=== PATIENT | female | born 1965 | race Caucasian/White ===

== ENCOUNTER 2024-06-18 16:50 | Outpatient (CLI) | payer MEDICARE, BC, SELFPAY ==
--- OUTSIDE RECORDS SUMMARY | 2024-06-18 16:53 | XMS_ITS | Clinical Summary ---
Author Organization [facility] Address [id number], [place] [address] Care Team Providers Care Senior Software Developer Name Role Phone Needs Pcp, Assignment Primary Care Provider [phone] Source Comments You are receiving this document as you are listed as the primary care provider,follow-up provider, or the patient has been referred to you for consultation.This is in compliance with the Medicare andMedicaid EHR Incentive Program,which states Providers who transition their patient to another setting of careor provider of care or refers their patient to another provider of care shouldprovide summary care record for each transition of care or referral. [facility] Allergies No known active allergies Medications Medication Sig Dispensed Refills Start Date End Date Status tretinoin (RETIN-A) 0.025 % creamIndications:Age- related facial wrinkles Apply pea sized amount to affected area of acne on face every evening. 20 g 11 02/20/2024 Active predniSONE (DELTASONE) 2.5 MG tablet Take 1 Tablet (2.5 mg) by mouth daily. Active levothyroxine (SYNTHROID) 100 MCG tablet Take 1 Tablet (100 mcg) by mouth daily. Active DULoxetine (CYMBALTA) 20 MG capsule Take 1 Capsule (20 mg) by mouth two times a day. 01/22/2024 Active clobetasol (TEMOVATE) 0.05 % cream Active buPROPion (WELLBUTRIN XL) 150 MG 24 hour release tablet Take 1 Tablet (150 mg) by mouth daily. Active Meloxicam (MOBIC) 15 MG tablet Take 1 Tablet (15 mg) by mouth daily. Active pregabalin (LYRICA) 100 MG capsule Take 1 Capsule (100 mg) by mouth daily. Active pregabalin (LYRICA) 300 MG capsule Take 1 Capsule (300 mg) by mouth daily. Active ALBUterol sulfate HFA 108 (90 Base) MCG/ACT inhaler Inhale. 01/17/2024 Active Active Problems No known active problems Social History Tobacco Use Types Packs/Day Years Used Date Smoking Tobacco: Never Assessed Sex and Gender Information Value Date Recorded Sex Assigned at Not on file Gender Identity Not on file Sexual Orientation Not on file Plan of Treatment Health Maintenance Due Date Last Done Comments Cervical Cancer Screening Due 1965 Colon Cancer Screening Plan Due 1965 Hep C Screening (Preventive Services) 1965 Medicare Annual Wellness Visit 1965 Mammogram 1965 HIV Screening (Preventive Services) 1981 HepB (1) 02/12/1984 Cholesterol 2010 Zoster/Shingles (2 of 2) 01/25/2022 11/30/2021 DTaP/Tdap/Td (2 - Tdap) 12/14/2022 12/14/2012 Influenza (#1) 2024 12/06/2023, 08/21, 09/29/2021, Additional history exists Pneumococcal Aged Out 07/29/2022, 08/21/2019 No lo nger eligible based on patient's age to complete this topic COVID-19 Vaccine Completed 10/31/2023, 09/2022, 03/25/2022, Additional history exists HepA Aged Out No longer eligi ble based on patient's age to complete this topic Hib Aged Out No longer eligi ble based on patient's age to complete this topic IPV (Polio) Aged Out No longer eligi ble based on patient's age to complete this topic MCV4 Aged Out No longer eligi ble based on patient's age to complete this topic Care Teams Senior Software Developer Relationship Specialty Start Date End Date Needs Pcp, [place] [address] PCP - General 02/20/24
--- OUTSIDE RECORDS SUMMARY | 2024-06-18 16:54 | XMS_ITS | Referral Summary ---
Author Organization [facility] Address [address] [place] [address] Care Team Providers Care Preschool Substitute Teacher Name Role Phone Karla Resendiz APRN, C.N.P., D.N.P. Primary Care Provider Source Comments Patient records contain information from all sites at [facility]. For routine questions regarding patient records, call [phone] during business hours, M-F 8:00 AM - 5:00 PM Central Time. Record requests for emergency care only can be directed to [phone] at any time.[facility] Encounters Date Type Department Care Team Description 06/13/2024 11:48 AM CDT - 06/13/2024 11:59 PM CDT Hospital Encounter Department of Laboratory Medicine in [address] [address] Karla Resendiz APRN, C.N.P., D.N.P. Fatigue Discharge Disposition: Home or Self Care 06/13/2024 11:48 AM CDT - 06/13/2024 11:59 PM CDT Hospital Encounter Department of Laboratory Medicine in [address] [phone] Karla Resendiz APRN, C.N.P., D.N.P. Hypothyroidism; Fatigue; Screening Examination Diabetes Mellitus; Rheumatoid Arthritis With Rheumatoid Factor Multiple Sites Without Organ Or Systems Involvement (HCC); Restless Leg Syndrome; Immunodeficiency Due To Drugs (HCC) Discharge Disposition: Home or Self Care 06/13/2024 11:00 AM CDT Office Visit Department of Family Medicine, [facility], [address] [phone] Karla Resendiz APRN, C.N.P., D.N.P. Fatigue (Primary Dx); Immunodeficiency Due To Drugs (HCC); Rheumatoid Arthritis With Rheumatoid Factor Multiple Sites Without Organ Or Systems Involvement (HCC); Restless Leg Syndrome; Hypothyroidism; Screening Examination Diabetes Mellitus; Polymyositis (HCC) Discharge Disposition: Home or Self Care 06/10/2024 3:00 PM CDT Comprehensive Visit Department of Orthopedic Surgery in [address] [phone] Rhiannon Farrar D.P.M. Rheumatoid Arthritis With Rheumatoid Factor Multiple Sites Without Organ Or Systems Involvement (HCC) (Primary Dx); Pain Foot Left Discharge Disposition: Home or Self Care 06/03/2024 9:15 AM CDT - 06/03/2024 11:59 PM CDT Hospital Encounter Department of Radiology in [address] [phone] Karla Resendiz APRN, C.N.P., D.N.P. Screening Mammogram Breast Cancer Discharge Disposition: Home or Self Care 05/15/2024 Orders Only Department of Family Medicine, [facility], [address] [phone] Karla Resendiz APRN, C.N.P., D.N.P. Pain Neck (Primary Dx) 05/15/2024 2:15 PM CDT Comprehensive Visit Department of Rehabilitation Services in [address] [phone] Karla Resendiz APRN, C.N.P., D.N.P. Nan Howard P.TLeisa Pain Neck (Primary Dx) 04/24/2024 Refill Department of Family Medicine, [facility], in [address] [phone] Karla Resendiz APRN, C.N.P., D.N.P. Med Refill 03/28/2024 Refill Department of [facility], [facility], in [address] [phone] Karla Resendiz APRN, C.N.P., D.N.P. Med Refill 03/19/2024 Refill Department of [facility], [facility], in [address] [phone] Karla Resendiz APRN, C.N.P., D.N.P. Med Refill from Last 3 Months Allergies Active Allergy Reactions Criticality Noted Date Comments Adhesive Rash Medium 06/29/2017 Adhesive Tape-Silicones Itching Medium 03/31/2023 Levofloxacin GI intolerance Medium 03/10/2022 Tramadol GI intolerance Medium 01/18/2018 Tramadol Hcl GI intolerance Medium 03/31/2023 Medications Medication Sig Dispensed Refills Start Date End Date Status OMEGA-3/DHA/EPA/D PA/FISH OIL (OMEGA-3 2100 ORAL) Take 1 capsule by mouth daily. 07/26/2017 Active magnesium 200 mg tablet Take 400 mg by mouth every morning before breakfast. Active ascorbic acid, vitamin C, (VITAMIN C) 1,000 mg tablet Take 1,000 mg by mouth daily. Active calcium carbonate (OS-EDIE) 1,250 mg (500 mg calcium) tablet Take 500 mg of calcium by mouth 3 (three) times a day with meals. Active docusate sodium (COLACE) 100 mg capsule Take 100 mg by mouth as needed. Active sennosides-docusa te sodium (SENOKOT-S) 8.6-50 mg per tablet Take 1-2 tablets by mouth as needed. 07/16/2020 Active vitamin A palmitate 10,000 unit tablet Take 1 tablet by mouth once a week. Active cranberry 450 mg tablet Take 450 mg by mouth as needed. Active Lactobacillus acidophilus capsule Take 1 capsule by mouth daily. Active LORazepam (ATIVAN) 0.5 mg tablet Take 0.5 mg by mouth as needed. 01/04/2021 Active zinc gluconate-zinc picolinate 30 mg capsule Take 30 mg by mouth 3 (three) times a week. Active diclofenac sodium (VOLTAREN) 1 % gel Apply topically as needed. Active estradioL (ESTRACE) 0.1 mg/g (0.01%) vaginal cream Insert 2 g into the vagina as needed. Active cetirizine (ZyrTEC) 10 mg tablet Take 1 tablet by mouth as needed. 01/08/2013 Active fluticasone propionate (FLONASE) 50 mcg/actuation nasal spray Administer 2 sprays into each nostril as needed for rhinitis. 9.9 mL 01/12/2023 Active acetaminophen (TYLENOL) 325 mg tablet Acetaminophen Oral take 2 tabs by oral route daily every 4-6 hours PRN active Active cholecalciferol (VITAMIN D3) 50 mcg (2,000 Unit) tablet 04/03/2019 Cholecalciferol Oral PO 2.0 TABLET(S) daily 04/03/2019 active 04/03/2019 Active mupirocin (BACTROBAN) 2 % ointment Apply 1 Application topically 3 (three) times a day. Apply to affected area as needed. 22 g 07/14/2023 Active multivitamin capsule Take 1 capsule by mouth daily. Active psyllium (METAMUCIL) powderIndications :Constipation,Les n Generalized Abdominal Take 1 packet by mouth daily. 283 g 12 08/28/2023 Active Additional Information Patient taking differently:1 packet oralAs needed, Reported on 03/06/2024 buPROPion XL (WELLBUTRIN XL) 150 mg 24 hr tablet Take 1 tablet (150 mg total) by mouth daily. 90 tablet 3 12/19/2023 Active benzonatate (TESSALON PERLES) 100 mg capsule Take 1 capsule (100 mg total) by mouth 3 (three) times a day as needed for cough. 15 capsule 01/20/2024 Active tretinoin (RETIN-A) 0.025 % cream Apply 1 Application topically as needed. 02/20/2024 Active predniSONE (DELTASONE) 5 mg tabletIndications :Rheumatoid Arthritis With Rheumatoid Factor Multiple Sites Without Organ Or Systems Involvement (HCC) Take 1 tablet (5 mg total) by mouth daily. 30 tablet 3 03/11/2024 Active DULoxetine (CYMBALTA) [address] capsule Take 2 capsules (40 mg total) by mouth 2 (two) times a day. 360 capsule 3 03/19/2024 Active pregabalin (Lyrica) 100 mg capsule Take 1 capsule (100 mg) by mouth 2 times per day 60 capsule 4 03/28/2024 Active levothyroxine (SYNTHROID, LEVOTHROID) 100 mcg tabletIndications :Hypothyroidism TAKE 1 TABLET (100 MCG) BY MOUTH EVERY MORNING BEFORE BREAKFAST 90 tablet 04/29/2024 Active predniSONE (Deltasone) 1 mg tabletIndications :Rheumatoid Arthritis With Rheumatoid Factor Multiple Sites Without Organ Or Systems Involvement (HCC) Take 1-4 tablets (1-4 mg total) by mouth daily. 120 tablet 2 06/14/2024 Active Active Problems Problem Noted Date Diagnosed Date Anxiety Disorder Unspecified 04/07/2023 Keloid 04/07/2023 04/07/2023 Hypertrophy Breast 04/07/2023 04/07/2023 Complication Anesthesia Subsequent 01/12/2023 Overview (01/12/2023): Nausea with anesthesia, use scopolamine patch. 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 02/26/2022 Vaginitis Atrophic 12/21/2020 04/07/2023 Depression Anxiety 08/19/2020 Rheumatoid Arthritis With Rh eumatoid Factor Multiple Sites Without Organ Or Systems Involvement 01/13/2020 Pseudotumor Cerebri 10/02/2017 Migraine Headache 09/22/2017 Dry Eye Syndrome Bilateral 11/10/2014 Hypothyroidism 02/15/2014 Overview (12/04/2017): Unspecified hypothyroidism Urinary Urge Incontinence 02/15/2014 Overview (12/04/2017): Urge incontinence Cataract Senile Posterior Subcapsular Bilateral 11/14/2012 Raynaud's Disease 07/02/2012 Restless Leg Syndrome 07/05/2010 Gastroesophageal Reflux Disease NOS 06/25/2010 Osteopenia 06/24/2010 Overview (01/31/2024): Bone density scan 12/06/2023, Osteopenia (E consult endocrinology place, calcium with vitamin-D advised with weight- bearing activity) Medication Therapy Oil Analyst Not Anticoagulant 0 03/04/2010 Cataract Senile Posterior Subcapsular Right 12/12/2007 Presbyopia 05/15/2008 Constipation 10/19/2007 Polymyositis 08/31/2006 Vertigo Pain Low Back Unspecified Pain Back Thoracic Radiculopathy Cervical Resolved Problems Problem Noted Date Diagnosed Date Resolved Date Depressive Disorder 04/07/2023 04/07/2023 09/27/20 23 Non-Pressure Chronic Ulcer O f Other Part Of Left Foot Limited To Breakdown Of Skin 01/12/2023 0 02/15/2023 COVID-19 Infection 12/08/2022 3 Cancer Breast Elevated Risk 02/13/2018 08/26/2019 Cancer Breast Family History 02/13/2018 08/26/2019 Cervical Disc Disorder 12/29/201511/17 Overgrowth Bacterial Small Bowel 05/25/2015 01/13/2020 Osteoporosis 05/30/2014 01/13/2020 Myopia Bilateral 11/14/2012 01/13/2020 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 ??Justine-1 positive antibody positive as well as rheumatoid factor and CCP antibody positive. ??She also has a history of mild interstitial lung disease. ??She has received prednisone, methotrexate, Arava and CellCept in the past. ??She has received anti-TNF therapy in the form of Humira and Remicade. Rituximab given in January and October,. Her most recent Rituximab therapy was in October, and had prolonged B-cell depletion. Arthritis Inflammatory 04/26/200701/13 Floater Vitreous 09/01/2006 01/13/2020 Lung Interstitial Disease 08/16/2006 Dyspnea NOS 08/16/2006 01/13/2020 Incomplete Bladder Emptying 03/20/2006 01/13/2020 Frequency Urinary 03/17/2006 01/13/2020 Pain Neck 11/17/2020 Immunizations Name Administration Dates Next Due H1N1 All Forms 11/03/2009 Influenza (IM) Preservative Free 017,08/10/2015,09/10/2013,2011,09/26/2011,09/29/2010,11/03/2009 Influenza Split 08/10/2015 Influenza TIV (IM) 11/10/2006 Influenza, Seasonal, Injectable 11/10/2006 Influenza, Unspecified 07/29/2019,2017,08/05/2016,2014,08/19/2014 PCV20 07/29/2022 PPSV23 08/21/2019 RZV (SHINGRIX) 11/30/2021,(Deferred: Not available from supply planner) SARS-COV-2 (COVID-19) - MODE RNA (12 YEARS AND OLDER) [id number] 10/31/2023 SARS-COV-2 (COVID-19) - PFIZ ER (Discontinued)(12 years or older) 07/22/2021,02/06/2021 SARS-COV-2 (COVID-19) - PFIZ ER BIVALENT TS(Discontinued)(12 YEARS OR OLDER) 09/30/2022 SARS-COV-2 (COVID-19) - PFIZ ER TS(Discontinued)(12 years or older) 03/25/2022 Tdap 01/31/2024(Deferred: Other - patient left),12/14/2012 Tuberculin Skin Test, Unspecified 07/31/2006 Zoster, Unspecified 10/22/2021(Deferred: Other),04/07/2021(Deferred: Other) influenza vaccine (FLUBLOK) (18 years or older) (PF) 09/10/2018 influenza vaccine quad (FLUZONE/FLUARIX) (6 months and older)(PF) 12/06/2023,09/17/2022,09/29/2021,2019,08/05/2016 Social History Tobacco Use Types Packs/Day Years Used Date Smoking Tobacco: Never Passive Smoke Exposure: Past Smokeless Tobacco: Never Tobacco Cessation:Counseling Given: Not Answered Alcohol Use Standard Drinks/Week Comments Yes 2 (1 standard drink = 0.6 oz pur e alcohol) [facility] Utilities Answer Date Recorded In the past 12 months has e [employer], oil, or water [employer] threatened to shut off services in your home? No 01/11/2024 Humiliation, Afraid, Rape, and Kick questionnair e Answer Date Recorded Within the last year, have y ou been afraid of your partner or ex-partner? No 01/11/2024 Within the last year, have y ou been humiliated or emotionally abused in other ways by your partner or ex-partner? No Within the last year, have y ou been kicked, hit, slapped, or otherwise physically hurt by your partner or ex-partner? No 01/11/2024 Within the last year, have y ou been raped or forced to have any kind of sexual activity by your partner or ex-partner? No 01/11/2024 Social Connection and Isolation Panel [NHANES] A nswer Date Recorded In a typical week, how many times do you talk on the phone with family, friends, or neighbors? Patient declined 07/29/2022 How often do you get togethe r with friends or relatives? Patient declined 07/29/2022 How often do you attend adventist or congregation serv ices? Patient declined 07/29/2022 Do you belong to any clubs o r organizations such as adventist groups, unions, fraternal or athletic groups, or school groups? Patient declined 07/29/2022 How often do you attend meet ings of the clubs or organizations you belong to? Patient declined 07/29/2022 Are you , , di vorced, , never , or living with a partner? Patient declined 07/29/2022 AUDIT-C Answer Date Recorded Q1: How often do you have a drink containing alc ohol? Patient declined 07/29/2022 Q2: How many drinks containi ng alcohol do you have on a typical day when you are drinking? Patient declined 07/29/2022 Q3: How often do you have si x or more drinks on one occasion? Patient declined 07/29/2022 Overall Financial Resource Strain (CARDIA) Answe r Date Recorded How hard is it for you to pa y for the very basics like food, housing, medical care, and heating? Not hard at all 07/29/2022 PHQ-2 Answer Date Recorded PHQ-2 Score 2 06/13/2024 [facility] - Occupational Stress Questionnaire Answer Date Recorded Do you feel stress - tense, restless, nervous, or anxious, or unable to sleep at night because your mind is troubled all the time - these days? Patient declined 07/29/2022 Exercise Vital Sign Answer Date Recorde d On average, how many days pe r week do you engage in moderate to strenuous exercise (like a brisk walk)? Patient declined On average, how many minutes do you engage in exercise at this level? Patient declined 07/29/2022 Hunger Vital Sign Answer Date Recorded Within the past 12 months, y ou worried that your food would run out before you got the money to buy more. Never true 01/11/20 Within the past 12 months, t he food you bought just didn't last and you didn't have money to get more. Never true 01/11/2024 PRAPARE - Transportation Answer Date Re corded In the past 12 months, has l ack of transportation kept you from medical appointments or from getting medications? No 12/22 In the past 12 months, has l ack of transportation kept you from meetings, work, or from getting things needed for daily living? No 01/11/2024 Depression Answer Date Recor ded PHQ-9 Total Score (max 27) 7 06/13 Nutrition Answer Date Recorded On average, how many serving s of fruits and vegetables do you eat per day (serving size is equal to 1 cup or approximately the size of a tennis ball)? 2-3 07/29/2022 Dental Answer Date Recorded Dental: Regular Dentist Yes 01/03/20 Employment Answer Date Recorded Employment status Permanently disabled Housing Stability Answer Date Recorded What is your living situation today? I have a quin place to live 01/11/2024 Education Answer Date Recorded What is the highest level of school you have completed or the highest degree you have received? 12th grade 08/20/2019 Sex and Gender Information Value Date Recorded Sex Assigned at Female 07/17/2018 3:01 PM CDT Gender Identity Female 07/17/2018 3:01 PM CDT Sexual Orientation Straight 07/17/2018 3: 01 PM CDT Last Filed Vital Signs Vital Sign Reading Time Taken Comments Blood Pressure 105/65 06/13/2024 10:35 AM CDT Pulse 74 06/13/2024 10:35 AM CDT Temperature 36.8 ??C (98.2 ??F) 06/13/2024 1 0:35 AM CDT Respiratory Rate 20 01/20/2024 2:46 PM [employer] Oxygen Saturation 98% 01/31/2024 10: 12 AM CDT Inhaled Oxygen Concentration - - Weight 64.7 kg (142 lb 10.2 oz) 024 10:35 AM CDT Height 172 cm (5' 7.72) 03/11/2024 10: 28 AM CDT Body Mass Index 21.87 03/11/2024 10:28 AM CDT Plan of Treatment Upcoming Encounters Date Type Department Care Team (Late st Contact Info) Description 09/06/2024 8:30 AM CDT Office Visit Department of Family Medicine, [facility], in [address] [phone] Karla Resendiz, RYAN, C.N.P., D.N.P. [address] [place] [address] Procedures Procedure Name Priority Date/Time Associated Diagnosis Comments FERRITIN, S Routine 06/13/2024 12:23 PM CDT Fatigue Immunodeficiency Due To Drugs (HCC) Rheumatoid Arthritis With Rheumatoid Factor Multiple Sites Without Organ Or Systems Involvement (HCC) VITAMIN B12 ASSAY, S Routine 06/13/2024 12:23 PM CDT Fatigue Rheumatoid Arthritis With Rheumatoid Factor Multiple Sites Without Organ Or Systems Involvement (HCC) Restless Leg Syndrome Hypothyroidism MAGNESIUM, S Routine 06/13/2024 12:23 PM CDT Fatigue Rheumatoid Arthritis With Rheumatoid Factor Multiple Sites Without Organ Or Systems Involvement (HCC) Restless Leg Syndrome Hypothyroidism HEMOGLOBIN A1C, B Routine 06/13/2024 12:23 PM CDT Screening Examination Diabetes Mellitus BASIC METABOLIC PANEL, S/P Routine 06/13/2024 12:23 PM CDT Fatigue CBC WITH DIFFERENTIAL, B Routine 06/13/2024 12:23 PM CDT Fatigue THYROID FUNCTION CASCADE, S Routine 06/13/2024 12:23 PM CDT Hypothyroidism ECG Routine 06/13/2024 12:17 PM CDT Fatigue SMALL JOINT INJECTION FOOT/ANKLE Routine 06/10/2024 3:00 PM CDT Pain Foot Left Rheumatoid Arthritis With Rheumatoid Factor Multiple Sites Without Organ Or Systems Involvement (HCC) BI BREAST SCREENING BILATERAL WITH TOMOSYNTHESIS RAD - Routine (most inpatients and all outpatients) 06/03/2024 9:29 AM CDT Screening Mammogram Breast Cancer LIPID PANEL, S Routine 10/31/2023 11:49 AM [employer]INTE[employer] Hyperlipidemia Rheumatoid Arthritis With Rheumatoid Factor Multiple Sites Without Organ Or Systems Involvement (HCC) HCV AB SCRN W/REFLEX TO HCV PCR, S Routine 06/29/2017 9:34 AM CDT from Last 3 Months or Most Recently Relevant to Health Maintenance Results * Thyroid Function [place] (06/13/2024 12:23 PM CDT) TSH, Sensitive 0.4 0.3 - 4.2 mIU/L 06/13/2024 7:40 PM CDT RDWG Blood (Blood, Venous) 06/13/2024 12:23 PM CDT 06/13/2024 6:53 PM CDT Livia Bravo APRNNLeisaP., D.N.P. LAB BLOOD ADD-ON [facility] [address] [place] [address], [facility] RDWG [facility] [place] [address] [place] [address] * (ABNORMAL) CBC with Differential, Blood (06/13/2024 12:23 PM CDT) Hemoglobin 13.7 11.6 - 15.0 g/dL 06/13/2024 7:08 PM CDT RDWG Hematocrit 43.4 35.5 - 44.9 % 06/13/2024 7:08 PM CDT RDWG Erythrocytes 4.73 3.92 - 5.13 x10(12)/L 06/13/2024 7:08 PM CDT RDWG MCV 91.8 78.2 - 97.9 fL 06/13/2024 7:08 PM CDT RDWG RBC Distrib Width 13.7 12.2 - 16.1 % 06/13/2024 7:08 PM CDT RDWG Platelet Count 319 157 - 371 x10(9)/L 06/13/2024 7:08 PM CDT RDWG Leukocytes 10.0(H) 3.4 - 9.6 x10(9)/L 06/13/2024 7:08 PM CDT RDWG Neutrophils 7.77(H) 1.56 - 6.45 x10(9)/L 06/13/2024 7:08 PM CDT RDWG Lymphocytes 1.61 0.95 - 3.07 x10(9)/L 06/13/2024 7:08 PM CDT RDWG Monocytes 0.54 0.26 - 0.81 x10(9)/L 06/13/2024 7:08 PM CDT RDWG Eosinophils 0.07 0.03 - 0.48 x10(9)/L 06/13/2024 7:08 PM CDT RDWG Basophils 0.05 0.01 - 0.08 x10(9)/L 06/13/2024 7:08 PM CDT RDWG Blood (Blood, Venous) 06/13/2024 12:23 PM CDT 06/13/2024 6:53 PM CDT Daren Bravo APRN.N.P., D.N.P. LAB BLOOD ADD-ON [facility] [address] [place] [address], [place] [address], [facility] RDW[facility] in [address] [address] * Magnesium (06/13/2024 12:23 PM CDT) Magnesium, P 2.3 1.7 - 2.3 mg/dL 06/13/2024 7:32 PM CDT RDWG Blood (Blood, Venous) 06/13/2024 12:23 PM CDT 06/13/2024 6:53 PM CDT Daren Bravo APRN.N.P., D.N.P. LAB BLOOD ADD-ON [facility] [address] [place] [id number] in [address] [address] * Hemoglobin A1c (06/13/2024 12:23 PM CDT) Hemoglobin A1c, B 5.5 4.2 - 5.6 % 06/13/2024 7:29 PM CDT RDWG Blood (Blood, Venous) 06/13/2024 12:23 PM CDT 06/13/2024 6:53 PM CDT Karla Resendiz APRN, Daren.N.P., D.N.P. LAB BLOOD ADD-ON Performing Organization Address City/[facility]/ZIP Co de Phone Number [facility] [address] [place] [phone], [facility] in [address] [address] * Ferritin (06/13/2024 12:23 PM CDT) Ferritin, S 19 11 - 328 mcg/L 06/13/2024 7:40 PM CDT RDW Comment: Biotin has been identified by the supply planner as a potential interfering substance. Higher concentrations of biotin may be found in multivitamins, hair/nail supplements, and workout supplements. If the result does not match clinical observations, repeat testing after patient refrains from the use of supplements for at least 12 hours. Blood (Blood, Venous) 06/13/2024 12:23 PM CDT 06/13/2024 6:53 PM CDT Livia Bravo APRNN.P., D.N.P. LAB BLOOD ADD-ON Performing Organization Address City/[facility] Co de Phone Number [facility] [address] [place] [phone], [facility] in [address] [address] * Vitamin B12 Assay (06/13/2024 12:23 PM CDT) Vitamin B12 Assay, S 265 232 - 1245 ng/L 06/13/2024 9:10 PM CDT ECLR Comment: Biotin has been identified by the supply planner as a potential interfering substance. Higher concentrations of biotin may be found in multivitamins, hair/nail supplements, and workout supplements. If the result does not match clinical observations, repeat testing after patient refrains from the use of supplements for at least 12 hours. Blood (Blood, Venous) 06/13/2024 12:23 PM CDT 06/13/2024 8:25 PM CDT Karla Resendiz APRN C.N.P., D.N.P. LAB BLOOD ADD-ON [facility] [address] [place] [id number], [place] ECLR [facility] [place] [address] [place] [phone] * (ABNORMAL) Basic Metabolic Panel (06/13/2024 12:23 PM CDT) Potassium, P 4.3 3.6 - 5.2 mmol/L 06/13/2024 7:32 PM CDT RDWG Sodium, P 139 135 - 145 mmol/L 06/13/2024 7:32 PM CDT RDWG Chloride, P 102 98 - 107 mmol/L 06/13/2024 7:32 PM CDT RDWG Bicarbonate, P 28 22 - 29 mmol/L 06/13/2024 7:32 PM CDT RDWG Anion Gap, P 9 7 - 15 06/13/2024 7:32 PM CDT RDWG BUN (Blood Urea Nitrogen), P 12 6 - 21 mg/dL 06/13/2024 7:32 PM CDT RDWG Creatinine 0.57(L) 0.59 - 1.04 mg/dL 06/13/2024 7:32 PM CDT RDWG Estimated GFR (eGFR) >90 >=60 mL/min/BSA 06/13/2024 7:32 PM CDT RDWG Comment: Estimated GFR calculated using the 2020 CKD_EPI creatinine equation. Calcium, Total, P 9.5 8.6 - 10.0 mg/dL 06/13/2024 7:32 PM CDT RDWG Glucose, P 80 70 - 140 mg/dL 06/13/2024 7:32 PM CDT RDWG Blood (Blood, Venous) 06/13/2024 12:23 PM CDT 06/13/2024 6:53 PM CDT Karla Resendiz APRN C.N.P., D.N.P. LAB BLOOD ADD-ON Performing Organization Address [facility] Co de Phone Number [facility] [address], [place] [address], [facility] RDWG [facility] [place] [address] [phone] * ECG 12 Lead (06/13/2024 12:17 PM CDT) Ventricular Rate ECG/Min 63 BPM MUSE HI Interval 166 ms MUSE QRSD Interval 84 ms MUSE QT Interval 404 ms MUSE QTC Interval 413 ms MUSE P [place] 73 degrees MUSE R [place] 78 degrees MUSE T Wave [place] 64 degrees MUSE 06/13/2024 12:1 7 PM CDT 06/13/2024 12:23 PM CDT Impressions MUSE - 06/13/2024 12:23 PM CDT Normal sinus rhythm Possible Left atrial enlargement Low anterior forces Nonspecific ST and T wave abnormality When compared with ECG of 25-Jun-2020 08:21, No significant change was found Reviewed by SIMA Garcia Narrative Procedure Note Alcides Diaz M.D., Ph.D. - 06/13/2024 IMPRESSION: Normal sinus rhythm Possible Left atrial enlargement Low anterior forces Nonspecific ST and T wave abnormality When compared with ECG of 25-Jun-2020 08:21, No significant change was found Reviewed by SIMA Garcia Karla Resendiz APRN, C.N.P., D.N.P. ECG ORDERABLES Performing Organization Address City/[facility] Co de Phone Number MUSE NA * Foot/Ankle (06/10/2024 3:00 PM CDT) Narrative Rhiannon Farrar D.P.M. - 06/10/2024 3:00 PM CDT Rhiannon Farrar D.PLeisaM. ? 06/10/2024 ??4:07 PM L 2-3 intermetatarsal neuroma injection, : injection only Foot/Ankle Performed by: Rhiannon Farrar D.P.MLeisa Authorized by: Rhiannon Farrar D.P.M. ?? PROCEDURE DETAILS ?? Procedure performed: injection only Foot-Ankle procedure site: L 2-3 intermetatarsal neuroma injection, PROCEDURE MEDICATIONS Local anesthetics: 1 mL lidocaine (PF) 10 mg/mL (1 %) Corticosteroid: 40 mg triamcinolone acetonide 40 mg/mL; 4 mg dexAMETHasone 4 mg/mL CONSENT Consent obtained: written (Risks, benefits and alternatives were discussed and a written Informed Consent was obtained. Please see Informed Consent form for further details.) UNIVERSAL PROTOCOL All relevant documentation and testing were reviewed and available. All required blood products, implants, devices and or special equipment were made available as applicable. Pre-procedure verification was conducted and the correct site was marked if required. A fire risk assessment was done as applicable. The procedural time-out to verify correct patient, correct side/site, and procedure was conducted prior to performing the procedure and confirmed in a procedural pause. PRE-PROCEDURE DETAILS Procedure purpose: therapeutic Appropriate hand hygiene, gown, cap, mask, protective eyewear, sterile gloves, skin preparation, sterile drape, and strict aseptic technique were utilized as applicable for the procedure. Site preparation: alcohol POST-PROCEDURE DETAILS Procedure outcome: ??successful procedure Complications: no apparent complications Post-procedure instructions: post-procedure activity instructions provided Discharge instruction provided: ice area as needed for comfort and follow-up with ordering provider Rhiannon GasparMLeisa PROCEDURE/CITLALI R SURGICAL ORDERABLES * BI Breast Screening Bilateral with Tomosynthesis (06/03/2024 9:29 AM CDT) Anatomical Region Laterality Modality Breast, Breast Imaging RST L OS, Breast Imaging ARZ LOS, Breast Imaging FLA [facility] Bilateral Mammography Impressions 06/03/2024 12:29 PM CDT Negative. RECOMMENDATION: ??Annual Screening Mammogram ASSESSMENT: ??BI-RADS: 1: Negative. Narrative 06/03/2024 12:29 PM CDT EXAM: ??BI BREAST SCREENING BILATERAL WITH TOMOSYNTHESIS Current study was evaluated with a Computer Aided Detection (CAD) system. INDICATION: ??Screening mammogram. COMPARISON: ??Prior exam(s) were available and reviewed for comparison. DENSITY: ??b. There are scattered areas of fibroglandular density. FINDINGS: ??No findings of malignancy. ??No significant change since prior exam. Procedure Note Ron Root M.D. - 06/03/2024 EXAM: BI BREAST SCREENING BILATERAL WITH TOMOSYNTHESIS Current study was evaluated with a Computer Aided Detection (CAD) system. INDICATION: Screening mammogram. COMPARISON: Prior exam(s) were available and reviewed for comparison. DENSITY: b. There are scattered areas of fibroglandular density. FINDINGS: No findings of malignancy. No significant change since priorexam. IMPRESSION: Negative. RECOMMENDATION: Annual Screening Mammogram ASSESSMENT: BI-RADS: 1: Negative. Karla Resendiz APRN, C.N.P., D.N.P. IMG BI PROCEDURES * (ABNORMAL) Lipid Panel (10/31/2023 11:49 AM [employer]) Triglycerides 79 mg/dL 10/31/2023 1:37 PM [employer] [facility] Comment: ----REFERENCE VALUE---- Normal: <150 mg/dL Borderline High: 150-199 mg/dL High: 200-499 mg/dL Very High: > or =500 mg/dL Cholesterol, Total 206(H) mg/dL 2022 1:37 PM [employer] [facility] Comment: ----REFERENCE VALUE---- Desirable: < 200 mg/dL Borderline High: 200 - 239 mg/dL High: > or = 240 mg/dL Cholesterol, LDL, Calculated 125 mg/dL 10/31/2023 1:37 PM [employer] [facility] Comment: ----REFERENCE VALUE---- Desirable: <100 mg/dL Above Desirable: 100-129 mg/dL Borderline High: 130-159 mg/dL High: 160-189 mg/dL Very High: >=190 mg/dL ----ADDITIONAL INFORMATION---- LDL cholesterol calculated using the Womack/NIH equation. Cholesterol, HDL 67 >=50 mg/dL 10/31/20 1:37 PM [employer] [facility] Cholesterol, Non-HDL, Calculated 139 mg/dL 10/31/2023 1:37 PM [employer] [facility] Comment: ----REFERENCE VALUE---- Desirable: <130 mg/dL Above Desirable: 130-159 mg/dL Borderline High: 160-189 mg/dL High: 190-219 mg/dL Very High: > or =220 mg/dL Fasting (8 HR or more) No 10/31/2023 1:08 PM [employer] [facility] Blood (Blood, Venous) 10/31/2023 11:49 AM [employer] 10/31/2023 1:08 PM [employer] Karla Resendiz APRN, C.N.P., D.N.P. LAB BLOOD ADD-ON Performing Organization Address City/[facility]/ZIP Co de Phone Number [facility] [address] [place] [address], [facility] RDWG [facility] [place] [address] [place] [phone] * HCV AB Scrn w/Reflex to HCV PCR, S (06/29/2017 9:34 AM CDT) HXHCV Ab [facility] Negative Negative POWERCHART Comment: Srjhdp-mv-[id number] ratio is <1.00. Test Performed by: [facility] - [address] [address] Blood 06/29/2017 9:34 AM CDT Karla Resendiz APRN, C.N.P., D.N.P. LAB MICROBIOLOGY - BLOOD ORDERABLES POWERCHART NA from Last 3 Months or Most Recently Relevant to Health Maintenance Care Teams Preschool Substitute Teacher Relationship Specialty Start Date End Date Karla Resendiz APRN, C.N.P., D.N.P. [address] [place] [id number] PCP - General 05/19/17
--- OUTSIDE RECORDS SUMMARY | 2024-06-18 16:54 | XMS_ITS ---
Author Organization [facility] Address [address] [place] [address] Care Team Providers Care Pumper Head Name Role Phone Unavailable Unavailable Unavailable Surgery Details Not on file Complications Check Surgery Details section. Procedure Estimated Blood Loss Check Surgery Details section. Procedure Findings Check Surgery Details section. Procedure Specimens Taken Check Surgery Details section.
--- OUTSIDE RECORDS SUMMARY | 2024-06-18 16:54 | XMS_ITS | Clinical Summary ---
Author Organization [facility] Address [address] [place] [address] Care Team Providers Care Contract Associate Manager Name Role Phone Karla Resendiz APRN, C.N.P., D.N.P. Primary Care Provider Source Comments Patient records contain information from all sites at [facility]. For routine questions regarding patient records, call [phone] during business hours, M-F 8:00 AM - 5:00 PM Central Time. Record requests for emergency care only can be directed to [phone] at any time.[facility] Allergies Active Allergy Reactions Criticality Noted Date [...] advised with weight- bearing activity) Medication Therapy Skilled Nursing Not Anticoagulant 0 03/04/2010 Cataract Senile Posterior Subcapsular Right 12/2007 Presbyopia 05/15/2008 Constipation 10/19/2007 Polymyositis 08/31/2006 Vertigo [...] 07/17/2012 01/13/2020 Overview (04/11/2017): Interstitial Lung Disease senior living usage methotrexate Dysphagia Oropharyngeal Phase 06/24/2010 01/13/2020 [...] Frequency Urinary 03/17/2006 01/13/2020 Pain Neck 11/17/2020 Encounters Date Type Department Care Team Description 06/13/2024 11:48 AM CDT - 06/13/2024 11:59 PM CDT Hospital Encounter Department of Laboratory Medicine in [address] [phone] Karla Resendiz APRN, C.N.P., D.N.P. Fatigue Discharge Disposition: Home or Self Care 06/13/2024 11:48 AM CDT - 06/13/2024 11:59 PM CDT Hospital Encounter Department of Laboratory Medicine in [address] [phone] Karla Resendiz APRN, C.N.P., D.N.P. 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 Fatigue (Primary Dx); Immunodeficiency Due To Drugs (HCC); Rheumatoid Arthritis With Rheumatoid Factor Multiple Sites Without Organ Or Systems Involvement (HCC); Restless Leg Syndrome; Hypothyroidism; Screening Examination Diabetes Mellitus; Polymyositis (HCC) Discharge Disposition: Home or Self Care 06/10/2024 3:00 PM CDT Comprehensive Visit Department of Orthopedic Surgery in [address] [phone] Rhiannon Farrar D.P.M. Rheumatoid Arthritis With Rheumatoid Factor Multiple Sites Without Organ Or Systems Involvement (HCC) (Primary Dx); Pain Foot Left Discharge Disposition: Home or Self Care 06/03/2024 9:15 AM CDT - 06/03/2024 11:59 PM CDT Hospital Encounter Department of Radiology in [address] [phone] Karla Resendiz APRN, C.N.P., D.N.P. Screening Mammogram Breast Cancer Discharge Disposition: Home or Self Care 05/15/2024 2:15 PM CDT Comprehensive Visit Department of Rehabilitation Services in [address] [phone] Karla Resendiz APRN, C.N.P., D.N.P. Nan Howard PLeisaTLeisa Pain Neck (Primary Dx) 05/15/2024 Orders Only Department of Family Medicine, [facility], [address] [phone] Karla Resendiz APRN, C.N.P., D.N.P. Pain Neck (Primary Dx) 04/24/2024 Refill Department of Family Medicine, [facility], in [address] [phone] Karla Resendiz APRN, C.N.P., D.N.P. Med Refill 03/28/2024 Refill Department of Family Medicine, [facility], in [address] [phone] Karla Resendiz APRN, C.N.P., D.N.P. Med Refill 03/19/2024 Refill Department of Family Medicine, [facility], in [place] [address] [place] [address] Karla Resendiz APRN, C.N.P., D.N.P. Med Refill from Last 3 Months Immunizations Name Administration Dates Next Due H1N1 All Forms 11/03/2009 Influenza (IM) Preservative Free 017,08/10/2015,09/10/2013,2011,09/26/2011,09/29/2010,11/03/2009 Influenza Split 08/10/2015 Influenza TIV (IM) 11/10/2006 Influenza, Seasonal, Injectable 11/10/2006 Influenza, Unspecified 07/29/2019,2017,08/05/2016,2014,08/19/2014 PCV20 07/29/2022 PPSV23 08/21/2019 RZV (SHINGRIX) 11/30/2021,(Deferred: Not available from folder hand) SARS-COV-2 (COVID-19) - MODE RNA (12 YEARS AND OLDER) [id number] 10/31/2023 SARS-COV-2 (COVID-19) - PFIZ ER (Discontinued)(12 [...] quad (FLUZONE/FLUARIX) (6 months and older)(PF) 12/06/2023,09/17/2022,09/29/2021,2019,08/05/2016 Family History Medical History Relation Name Comments Macular degeneration Aunt 1 Lupus Aunt 2 paternal Polymyositis Aunt 2 paternal Hyperlipidemia Brother 1 Thyroid disease Brother 1 Hyperlipidemia Brother 2 Hesham Thyroid disease Brother 2 Hesham Hypothyroidism Daughter 1 Learning disorder Daughter 2 vivian Thyroid disease Daughter 2 vivian Anxiety disorder Father candice Cataracts Father candice Dementia Father candice Depression Father candice Father candice Kidney disease Father candice Macular degeneration Father candice Sleep apnea Father candice Transient ischemic attack Father candice Pancreatic cancer Father's Brother 1 chava Coronary artery disease Father's Brother 2 hanane Kidney disease Father's Brother 2 hanane Other cancer Father's Brother 2 hanane brain can cer Other cancer Father's Brother 3 mariano stomach c ancer Dementia Father's Brother 4 Brian Coronary artery disease Father's Sister Reanna Prostate cancer Maternal Grandfather grandpa fahad Diabetes Maternal Grandmother stefan Anxiety disorder Mother kade Cataracts Mother kade Clotting disorder Mother kade Coronary artery disease Mother kade Depression Mother kade Hyperlipidemia Mother kade Hypertension Mother kade Lung cancer Mother kade Peripheral vascular disease Mother kade Thyroid disease Mother kade Kidney cancer Mother's Brother 1 rock Prostate cancer Mother's Brother 1 rock Clotting disorder Mother's Brother 2 nithin Prostate cancer Mother's Brother 2 nithin Prostate cancer Mother's Brother 3 chava Dementia Mother's Brother 4 fahad jr Prostate cancer Mother's Brother 4 fahad jr Lung cancer Mother's Brother 5 shaq Coronary artery disease Paternal Grandfather kulwinder sr Anxiety disorder Sister 1 Telma Breast cancer Sister 1 Telma Cataracts Sister 1 Telma Clotting disorder Sister 1 Telma Coronary artery disease Sister 1 Telma Depression Sister 1 Telma Gestational diabetes Sister 1 Telma Graves' disease Sister 1 Telma Hyperlipidemia Sister 1 Telma Hypothyroidism Sister 1 Telma Obesity Sister 1 Telma Polymyositis Sister 1 Telma Thyroid disease Sister 1 Telma Anxiety disorder Sister 2 Nov Depression Sister 2 Good Hypothyroidism Sister 2 Good Thyroid disease Sister 2 Nov Anxiety disorder Sister 3 Ana Breast cancer Sister 3 Ana Clotting disorder Sister 3 Ana Depression Sister 3 Ana Gestational diabetes Sister 3 Ana Hyperlipidemia Sister 3 Ana Obesity Sister 3 Ana Polymyositis Sister 3 Ana Sleep apnea Sister 3 Ana Thyroid disease Sister 3 Ana Macular degeneration Uncle Relation Name Status Comments Aunt 1 Aunt 2 paternal Brother 1 Brother 2 Hesham Daughter 1 Daughter 2 vivian Father candice Father's Brother 1 chava Father's Brother 2 hanane Father's Brother 3 mariano Father's Brother 4 Brian Father's Sister Reanna Maternal Grandfather grandpa fahad Maternal Grandmother stefan Mother kade Mother's Brother 1 rock Mother's Brother 2 nithin Mother's Brother 3 chava Mother's Brother 4 fahad jr Mother's Brother 5 shaq Paternal Grandfather kulwinder deng Sister 1 Telma Breast CA age 4 9 Sister 2 Good Sister 3 Ana Breast CA age 5 6 Uncle Social History Tobacco Use Types Packs/Day Years Used Date Smoking Tobacco: Never Passive Smoke Exposure: Past Smokeless Tobacco: Never Tobacco Cessation:Counseling Given: Not Answered Alcohol Use Standard Drinks/Week Comments Yes 2 (1 standard drink = 0.6 oz pur e alcohol) [facility] Utilities Answer Date Recorded In the past 12 months has e Xention, gas, oil, or water opvizor threatened to shut off services in your [...] declined 07/29/2022 How often do you attend episcopal or baptism serv ices? Patient declined 07/29/2022 Do you belong to any clubs o r organizations such as episcopal groups, unions, fraternal or athletic groups, or [...] Answer Date Recorded PHQ-2 Score 2 06/13/2024 [facility] - Occupational Stress Questionnaire Answer Date Recorded [...] money to buy more. Never true 01/11/20 24 Within the past 12 months, t he [...] your living situation today? I have a [facility] place to live 01/11/2024 Education Answer Date [...] CDT Respiratory Rate 20 01/20/2024 2:46 PM TRANSPORTATION DEPARTMENT SUPERVISOR Oxygen Saturation 98% 01/31/2024 10: 12 AM [...] CDT Office Visit Department of Family Medicine, [facility], in [place] [address] [place] [address] Karla Resendiz, RYAN, C.N.P., D.N.P. [address] [place] [address] Health Maintenance Due Date Last Done Comments CT Colonography 1965 Cologuard 1965 FIT 1965 HIV Screening 1965 Hepatitis B Vaccines (1 of 3 - 19+ 3-dose series) 02/12/1984 Zoster Vaccines (2 of 2) 01/25/2022 11/30/2021 DTaP,Tdap,and Td Vaccines (2 - Td or Tdap) 12/14/2022 12/14/2012 Influenza Vaccine (#1) 2024 , 09/17/2022, 09/29/2021, Additional history exists Cervical Cancer Screening 12/12/2024 12/12/2023 Visit: Medicare Annual Wellness 01/12/2025 01/11/2024 Mammogram 06/03/2025 06/03/2024, 07/0 05/2023, 08/23/2021, Additional history exists Thyroid Stimulating Hormone (TSH) test for thyroid function 06/13/2025 06/13/2024, 08/31/2023, 07/11/2022, Additional history exists Colonoscopy 02/09/2027 02/09/2017, 12/22, 07/03/2006 Colorectal Cancer Screening 02/09/2027 Fasting Glucose for Diabetes Screening 06/13/2027 06/13/2024, 06/13/2024, 10/31/2023, Additional history exists Lipid (Cholesterol) Screening 10/31/2028 10/31/2023, 08/31/2023, 01/07/2021, Additional history exists Hepatitis C Screening Completed 06/29/2017 Pneumococcal vaccine (0-64 years) Completed 07/29/2022, 08/21/2019 COVID-19 Vaccine Completed 10/31/2023, 09/2022, 03/25/2022, Additional history exists Depression Screening (Annual PHQ-2) Completed 06/13/2024, 06/13/2024 HPV Vaccines Aged Out No longer eligi ble based on patient's age to complete this topic Procedures Procedure Name Priority Date/Time Associated Diagnosis [...] LIPID PANEL, S Routine 10/31/2023 11:49 AM TRANSPORTATION DEPARTMENT SUPERVISOR Hyperlipidemia Rheumatoid Arthritis With Rheumatoid Factor Multiple Sites Without Organ Or Systems Involvement (HCC) HCV AB SCRN W/REFLEX TO HCV PCR, S Routine 06/29/2017 9:34 AM CDT from Last 3 Months or Most Recently Relevant to Health Maintenance Results * Thyroid Function [place] (06/13/2024 12:23 PM CDT) Pathologist [facility] TSH, Sensitive 0.4 0.3 - 4.2 mIU/L 06/13/2024 7:40 PM CDT [facility] Blood (Blood, Venous) 06/13/2024 12:23 PM CDT 06/13/2024 6:53 PM CDT Karla Resendiz APRN, C.N.P., D.N.P. LAB BLOOD ADD-ON [facility] [address] [place] [address], [facility] R[facility] in [place] [address] [place] [address] * (ABNORMAL) CBC with Differential, Blood (06/13/2024 12:23 PM CDT) Pathologist [facility] Hemoglobin 13.7 11.6 - 15.0 g/dL 06/13/2024 [...] Resendiz APRN, Daren.N.P., D.N.P. LAB BLOOD ADD-ON [facility] [address] [place] [address], [place] [address], [facility] [address] [place] [address] * Magnesium (06/13/2024 12:23 PM CDT) [facility] Magnesium, P 2.3 1.7 - 2.3 mg/dL 06/13/2024 7:32 PM CDT [facility] Blood (Blood, Venous) 06/13/2024 12:23 PM CDT 06/13/2024 6:53 PM CDT Karla Resendiz APRN, Daren.N.P., D.N.P. LAB BLOOD ADD-ON [facility] [address] [place] [address], [facility] [place] [address] [place] [address], [place] [address] * Hemoglobin A1c (06/13/2024 12:23 PM CDT) Hemoglobin A1c, B 5.5 4.2 - 5.6 % 06/13/2024 7:29 PM CDT [facility] Blood (Blood, Venous) 06/13/2024 12:23 PM CDT 06/13/2024 6:53 PM CDT Daren Bravo APRN.N.P., D.N.P. LAB BLOOD ADD-ON Performing Organization Address City/[facility]/ZIP Co de Phone Number [facility] [address] [place] [address], [facility] in [address] [address] * Ferritin (06/13/2024 12:23 PM CDT) Ferritin, S 19 11 - 328 mcg/L 06/13/2024 7:40 PM CDT [facility] Comment: Biotin has been identified by the folder hand as a potential interfering substance. Higher concentrations of biotin may be found in multivitamins, hair/nail supplements, and workout supplements. If the result does not match clinical observations, repeat testing after patient refrains from the use of supplements for at least 12 hours. Blood (Blood, Venous) 06/13/2024 12:23 PM CDT 06/13/2024 6:53 PM CDT Daren Bravo APRN.N.P., D.N.P. LAB BLOOD ADD-ON Performing Organization Address City/[facility]/ZIP Co de Phone Number [facility] [address] [place] [address], [facility] in [address] [address] * Vitamin B12 Assay (06/13/2024 12:23 PM CDT) Vitamin B12 Assay, S 265 232 - 1245 ng/L 06/13/2024 9:10 PM CDT ECL[facility] Comment: Biotin has been identified by the folder hand as a potential interfering substance. Higher concentrations of biotin may be found in multivitamins, hair/nail supplements, and workout supplements. If the result does not match clinical observations, repeat testing after patient refrains from the use of supplements for at least 12 hours. Blood (Blood, Venous) 06/13/2024 12:23 PM CDT 06/13/2024 8:25 PM CDT Karla Resendiz APRN, C.N.P., D.N.P. LAB BLOOD ADD-ON [facility] [address] [place] [address], [facility] ECLR [facility] in [address] [address] * (ABNORMAL) Basic Metabolic Panel (06/13/2024 12:23 [...] 06/13/2024 6:53 PM CDT Karla Resendiz APRN, C.N.P., D.N.P. LAB BLOOD ADD-ON Performing Organization Address [facility] Co de Phone Number [facility] [address] [place] [address], [facility] in [place] [address] [place] [address] * ECG 12 Lead (06/13/2024 12:17 PM CDT) Ventricular Rate ECG/Min 63 BPM MUSE [place] Interval 166 ms MUSE QRSD Interval 84 ms MUSE QT Interval 404 ms MUSE QTC Interval 413 ms MUSE P [place] 73 degrees MUSE R [place] 78 degrees MUSE T Wave [place] 64 degrees MUSE 06/13/2024 12:1 7 PM [...] C.N.P., D.N.P. ECG ORDERABLES Performing Organization Address City/[facility] Co de Phone Number MUSE NA * Foot/Ankle (06/10/2024 3:00 PM CDT) Narrative VandRhiannon Pedro D.P.M. - 06/10/2024 3:00 PM CDT Rhiannon Farrar D.P.M. ? 06/10/2024 ??4:07 PM L 2-3 intermetatarsal neuroma injection, : injection only Foot/Ankle Performed by: Rhiannon Farrar D.P.M. Authorized by: Rhiannon Farrar D.P.M. ?? PROCEDURE [...] comfort and follow-up with ordering provider Rhiannon Farrar D.P.M. PROCEDURE/CITLALI R SURGICAL ORDERABLES * BI Breast Screening Bilateral with Tomosynthesis (06/03/2024 9:29 AM CDT) Anatomical Region Laterality Modality Breast, Breast Imaging RST L OS, Breast Imaging ARZ LOS, Breast Imaging FLA LOS Bilateral Mammography Impressions 06/03/2024 12:29 PM CDT [...] * (ABNORMAL) Lipid Panel (10/31/2023 11:49 AM TRANSPORTATION DEPARTMENT SUPERVISOR) Triglycerides 79 mg/dL 10/31/2023 1:37 PM TRANSPORTATION DEPARTMENT SUPERVISOR [facility] Comment: ----REFERENCE VALUE---- Normal: <150 mg/dL Borderline High: 150-199 mg/dL High: 200-499 mg/dL Very High: > or =500 mg/dL Cholesterol, Total 206(H) mg/dL 2022 1:37 PM TRANSPORTATION DEPARTMENT SUPERVISOR [facility] Comment: ----REFERENCE VALUE---- Desirable: < 200 mg/dL Borderline High: 200 - 239 mg/dL High: > or = 240 mg/dL Cholesterol, LDL, Calculated 125 mg/dL 10/31/2023 1:37 PM TRANSPORTATION DEPARTMENT SUPERVISOR [facility] Comment: ----REFERENCE VALUE---- Desirable: <100 mg/dL Above Desirable: 100-129 mg/dL Borderline High: 130-159 mg/dL High: 160-189 mg/dL Very High: >=190 mg/dL ----ADDITIONAL INFORMATION---- LDL cholesterol calculated using the Womack/NIH equation. Cholesterol, HDL 67 >=50 mg/dL 10/31/20 1:37 PM TRANSPORTATION DEPARTMENT SUPERVISOR [facility] Cholesterol, Non-HDL, Calculated 139 mg/dL 10/31/2023 1:37 PM TRANSPORTATION DEPARTMENT SUPERVISOR [facility] Comment: ----REFERENCE VALUE---- Desirable: <130 mg/dL Above Desirable: 130-159 mg/dL Borderline High: 160-189 mg/dL High: 190-219 mg/dL Very High: > or =220 mg/dL Fasting (8 HR or more) No 10/31/2023 1:08 PM TRANSPORTATION DEPARTMENT SUPERVISOR [facility] Blood (Blood, Venous) 10/31/2023 11:49 AM TRANSPORTATION DEPARTMENT SUPERVISOR 10/31/2023 1:08 PM TRANSPORTATION DEPARTMENT SUPERVISOR Daren Bravo APRN.N.P., D.N.P. LAB BLOOD ADD-ON Performing Organization Address City/[facility]/ZIP Co de Phone Number [facility] [address] [place] [address], [facility] in [address] [address] * HCV AB Scrn w/Reflex to HCV PCR, S (06/29/2017 9:34 AM CDT) HXHCV Ab [facility] Negative Negative POWERCHART Comment: Dhoekt-ij-sauonp ratio is <1.00. Test Performed by: [facility] - [address] [address] Blood 06/29/2017 9:34 AM CDT Karla Resendiz APRN, Daren.N.P., D.N.P. LAB MICROBIOLOGY - BLOOD ORDERABLES POWERCHART NA from Last 3 Months or Most Recently Relevant to Health Maintenance Care Teams Contract Associate Manager Relationship Specialty Start Date End Date Karla Resendiz, RYAN, C.N.P., D.N.P. [address] [place] [address] PCP - General 05/19/17
--- OUTSIDE RECORDS SUMMARY | 2024-06-18 16:55 | XMS_ITS | Encounter Summary ---
Author Organization [facility] Address [address] [place] [address] Care Team Providers Care Sustainment Logistics Analyst Name Role Phone Karla Resendiz APRN, C.N.P., D.N.P. Primary Care Provider Reason for Referral * Outpatient (Routine) - Authorized Specialty Diagnoses / Procedures Referred By Ariana bedolla Referred To Contact Diagnoses Pain Foot Left Rheumatoid Arthritis With Rheumatoid Factor Multiple Sites Without Organ Or Systems Involvement (HCC) Procedures Foot/Ankle Rhiannon Farrar D.PJulianne [address] [place] [address] [facility] Region Referral ID Status Reason Start Date Expiration Date V isits Requested Visits Authorized [id number] Authorized 06/10/2024 06/10/2025 1 1 Reason for Visit * Reason Comments Pain * Outpatient (Routine) - Closed Specialty Diagnoses / Procedures Referred By Contjanneth bedolla Referred To Contact Orthopedic Surgery Diagnoses Pain Foot Left Karla Resendiz APRN, C.N.P., D.N.P. [address] [place] [address] [facility] Region Referral ID Status Reason Start Date Expiration Date Visits Re quested Visits Authorized [id number] Closed 03/14/2024 09/13/2025 1 1 Encounter Details Date Type Department Care Team (Latest Contact Info) Description 06/10/2024 3:00 PM CDT Comprehensive Visit Department of Orthopedic Surgery in [address] [place] [address] Rhiannon Farrar D.PLeisaM. [address] [place] [address] Rheumatoid Arthritis With Rheumatoid Factor Multiple Sites Without Organ Or Systems Involvement (HCC) (Primary Dx); Pain Foot Left Discharge Disposition: Home or Self Care Social History Tobacco Use Types Packs/Day Years Used Date Smoking Tobacco: Never Passive Smoke Exposure: Past Smokeless Tobacco: Never Alcohol Use Standard Drinks/Week Comments Yes 2 (1 standard drink = 0.6 oz pur e alcohol) [facility] Utilities Answer Date Recorded In the past 12 months has e [employer], gas, oil, or water [employer] threatened to shut off services in your [...] declined 07/29/2022 How often do you attend islam or jew serv ices? Patient declined 07/29/2022 Do you belong to any clubs o r organizations such as islam groups, unions, fraternal or athletic groups, or [...] 07/29/2022 PHQ-2 Answer Date Recorded PHQ-2 Score 1 01/11/2024 [facility] - Occupational Stress Questionnaire Answer Date [...] Recor ded PHQ-9 Total Score (max 27) 6 10/31 Nutrition Answer Date Recorded On average, how [...] your living situation today? I have a [facility] place to live 01/11/2024 Education Answer Date Recorded What is the highest level of school you have completed or the highest degree you have received? 12th grade 08/20/2019 Sex and Gender Information Value Date Recorded Sex Assigned at Female 07/17/2018 3:01 PM CDT Gender Identity Female 07/17/2018 3:01 PM CDT Sexual Orientation Straight 07/17/2018 3: 01 PM CDT documented as of this encounter Progress Notes * Rhiannon Farrar D.P.M. - 06/10/2024 3:00 PM CDT SUBJECTIVE CHIEF COMPLAINT / REASON FOR VISIT Chief Complaint Patient presents with Left Foot - Pain HISTORY OF PRESENT ILLNESS Josefina Esparza is a 59 y.o. female who presents for evaluation of left 2nd and 3rd MTPJ inflammation, edema, with history of rheumatoid arthritis and increase in her prednisone recently to 5 mg daily. She would like to go back down her dosage since she is feeling better but is also still havingconcerns for the inflammation and residual pain in her left foot. Recommendation was made by Rheumatology to also consider the use of methotrexate going forward however patient has not started that yet. The following portions were reviewed and updated as appropriate: Allergies, medications, medical history, surgical history, family history, social history. and problem list per the electronic health record tab dated 06/10/2024. REVIEW OF SYSTEMS: Hepatic - negative, Constitutional - negative, Integumentary - negative, GI - negative, Musculoskeletal - see HPI OBJECTIVE PHYSICAL EXAMINATION DP PT pulse palpable to the left foot. Left 2nd and 3rd digits demonstrate hammertoe deformities with MTPJ contracture, and quite inflamed 2nd and 3rd MTPJ with pain to palpation. ASSESSMENT / PLAN #1 Pain Foot Left #2 Rheumatoid Arthritis With Rheumatoid Factor Multiple Sites Without Organ Or Systems Involvement (HCC) PLAN I recommended left 2nd intermetatarsal space cortisone injection. The rationale for the procedure was discussed. Risks, benefits, and alternative treatments were discussed as well. The patient was given the opportunity to ask appropriate questions, and does understand the risks, benefits, and alternatives. The patient preference agrees with my recommendation and therefore we will proceed as planned. Informed consent was signed. See procedure note this date. documented in this encounter Procedure Notes * Rhiannon Farrar D.P.M. - 06/10/2024 3:00 PM CDTAssociated Order(s): Foot/Ankle Post-Procedure Diagnose(s): Pain Foot Left; Rheumatoid Arthritis With Rheumatoid Factor Multiple Sites Without Organ Or Systems Involvement (HCC) L 2-3 intermetatarsal neuroma injection, : injection only Foot/Ankle Performed by: Rhiannon Farrar D.P.M. Authorized by: Rhiannon Farrar D.P.M. PROCEDURE DETAILS Procedure performed: injection only Foot-Ankle procedure site: [...] Site preparation: alcohol POST-PROCEDURE DETAILS Procedure outcome: successful procedure Complications: no apparent complications Post-procedure instructions: post-procedure activity instructions provided Discharge instruction provided: ice area as needed for comfort and follow-up with ordering provider documented in this encounter Plan of Treatment Upcoming Encounters Date Type Department Care Team (Late st Contact Info) Description 09/06/2024 8:30 AM CDT Office Visit Department of Family Medicine, [facility], in [address] [address] Karla Resendiz APRN, C.N.P., D.N.P. [facility] [address] documented as of this encounter Procedures Procedure Name Priority Date/Time Associated Diagnosis Comments SMALL JOINT INJECTION FOOT/ANKLE Routine 06/10/2024 3:00 PM CDT Pain Foot Left Rheumatoid Arthritis With Rheumatoid Factor Multiple Sites Without Organ Or Systems Involvement (HCC) documented in this encounter Results * Foot/Ankle (06/10/2024 3:00 PM CDT) Narrative Rhiannon Farrar D.PTrini. - 06/10/2024 3:00 PM CDT Rhiannon Farrar D.PJulianne ? 06/10/2024 ??4:07 PM L 2-3 intermetatarsal neuroma injection, : injection only Foot/Ankle Performed by: Rhiannon Farrar D.PJulianne Authorized by: Rhiannon Farrar D.P.M. ?? PROCEDURE [...] Rhiannon Farrar D.P.M. PROCEDURE/CITLALI R SURGICAL ORDERABLES documented in this encounter Visit Diagnoses Diagnosis Rheumatoid Arthritis With Rheumatoid Factor Multiple Sites Without Organ Or Systems Involvement (HCC)- Primary Pain Foot Left documented in this encounter Administered Medications Inactive Administered Medications - up to 3 most recent administrations Medication Order MAR Action Action Date Dose Rate Site dexAMETHasone injection 4 mg (Decadron) 4 mg, intra-articular, One-Time Injection, Starting on Mon06/10/24 at 1500, For 1 dose Given 06/10/2024 3:00 PM CDT 4 mg lidocaine (PF) 10 mg/mL (1 %) injection 1 mL (Xylocaine) 1 mL, injection, One-Time Injection, Starting on Mon06/10/24 at 1500, For 1 dose Given 06/10/2024 3:00 PM CDT 1 mL triamcinolone acetonide injection 40 mg (Kenalog-40) 40 mg, intra-articular, One-Time Injection, Starting on Mon06/10/24 at 1500, For 1 dose Given 06/10/2024 3:00 PM CDT 40 mg documented in this encounter Additional Health Concerns Assessment Noted Time PHQ-9 Depression Total Score: 6 10/31/20 23 10:21 AM HUMAN FACTORS ENGINEER documented as of this encounter Care Teams Sustainment Logistics Analyst Relationship Specialty Start Date End Date Karla Resendiz APRN, C.N.P., D.N.P. [address] [place] [phone] PCP - General 05/19/17 documented as of this encounter
--- OUTSIDE RECORDS SUMMARY | 2024-06-18 16:55 | XMS_ITS | Encounter Summary ---
Author Organization [facility] Address [address] [place] [address] Care Team Providers Care Conciliator Name Role Phone Karla Resendiz APRN, C.N.P., D.N.P. Primary Care Provider Encounter Details Date Type Department Care Team (Latest Contact Info) Description 06/13/2024 11:48 AM CDT - 06/13/2024 11:59 PM CDT Hospital Encounter Department of Laboratory Medicine in [address] [address] Karla Resendiz APRN, C.N.P., D.N.P. [address] [place] [phone] Hypothyroidism; Fatigue; Screening Examination Diabetes Mellitus; Rheumatoid Arthritis With Rheumatoid Factor Multiple Sites Without Organ Or Systems Involvement (HCC); Restless Leg Syndrome; Immunodeficiency Due To Drugs (HCC) Discharge Disposition: Home or Self Care Social History Tobacco Use Types Packs/Day Years Used Date Smoking Tobacco: Never Passive Smoke Exposure: Past Smokeless Tobacco: Never Alcohol Use Standard Drinks/Week Comments Yes 2 (1 standard drink = 0.6 oz pur e alcohol) [facility] Utilities Answer Date Recorded In the past 12 months has th e electric, gas, oil, or water [employer] threatened to shut off services in your [...] declined 07/29/2022 How often do you attend hinduism or zoroastrian serv ices? Patient declined 07/29/2022 Do you belong to any clubs o r organizations such as hinduism groups, unions, fraternal or athletic groups, or [...] Answer Date Recorded PHQ-2 Score 2 06/13/2024 [facility] - Occupational Stress [...] your living situation today? I have a [facility] place to live 01/11/2024 Education Answer [...] PM CDT documented as of this encounter Medications at Time of Discharge Medication Sig Dispensed Refills Start Date End Date acetaminophen (TYLENOL) 325 mg tablet Acetaminophen Oral take 2 tabs by oral route daily every 4-6 hours PRN active ascorbic acid, vitamin C, (VITAMIN C) 1,000 mg tablet Take 1,000 mg by mouth daily. benzonatate (TESSALON PERLES) 100 mg capsule Take 1 capsule (100 mg total) by mouth 3 (three) times a day as needed for cough. 15 capsule 01/20/2024 buPROPion XL (WELLBUTRIN XL) 150 mg 24 hr tablet Take 1 tablet (150 mg total) by mouth daily. 90 tablet 3 12/19/2023 12/18/2024 calcium carbonate (OS-EDIE) 1,250 mg (500 mg calcium) tablet Take 500 mg of calcium by mouth 3 (three) times a day with meals. cetirizine (ZyrTEC) 10 mg tablet Take 1 tablet by mouth as needed. 01/08/2013 cholecalciferol (VITAMIN D3) 50 mcg (2,000 Unit) tablet 04/03/2019 Cholecalciferol Oral PO 2.0 TABLET(S) daily 04/03/2019 active 04/03/2019 cranberry 450 mg tablet Take 450 mg by mouth as needed. diclofenac sodium (VOLTAREN) 1 % gel Apply topically as needed. docusate sodium (COLACE) 100 mg capsule Take 100 mg by mouth as needed. DULoxetine (CYMBALTA) [address] capsule Take 2 capsules (40 mg total) by mouth 2 (two) times a day. 360 capsule 3 03/19/2024 estradioL (ESTRACE) 0.1 mg/g (0.01%) vaginal cream Insert 2 g into the vagina as needed. Lactobacillus acidophilus capsule Take 1 capsule by mouth daily. levothyroxine (SYNTHROID, LEVOTHROID) 100 mcg tabletIndications:H ypothyroidism TAKE 1 TABLET (100 MCG) BY MOUTH EVERY MORNING BEFORE BREAKFAST 90 tablet 04/29/2024 LORazepam (ATIVAN) 0.5 mg tablet Take 0.5 mg by mouth as needed. 01/04/2021 magnesium 200 mg tablet Take 400 mg by mouth every morning before breakfast. multivitamin capsule Take 1 capsule by mouth daily. mupirocin (BACTROBAN) 2 % ointment Apply 1 Application topically 3 (three) times a day. Apply to affected area as needed. 22 g 07/14/2023 OMEGA-3/DHA/EPA/DPA /FISH OIL (OMEGA-3 2100 ORAL) Take 1 capsule by mouth daily. 07/26/2017 predniSONE (Deltasone) 1 mg tabletIndications:R heumatoid Arthritis With Rheumatoid Factor Multiple Sites Without Organ Or Systems Involvement (HCC) Take 1-4 tablets (1-4 mg total) by mouth daily. 120 tablet 2 06/14/2024 predniSONE (DELTASONE) 5 mg tabletIndications:R heumatoid Arthritis With Rheumatoid Factor Multiple Sites Without Organ Or Systems Involvement (HCC) Take 1 tablet (5 mg total) by mouth daily. 30 tablet 3 03/11/2024 07/09/2024 pregabalin (Lyrica) 100 mg capsule Take 1 capsule (100 mg) by mouth 2 times per day 60 capsule 4 03/28/2024 psyllium (METAMUCIL) powderIndications:C onstipation,Pain Generalized Abdominal Take 1 packet by mouth daily. 283 g 12 08/28/2023 sennosides-docusate sodium (SENOKOT-S) 8.6-50 mg per tablet Take 1-2 tablets by mouth as needed. 07/16/2020 tretinoin (RETIN-A) 0.025 % cream Apply 1 Application topically as needed. 02/20/2024 vitamin A palmitate 10,000 unit tablet Take 1 tablet by mouth once a week. zinc gluconate-zinc picolinate 30 mg capsule Take 30 mg by mouth 3 (three) times a week. documented as of this encounter Plan of Treatment Upcoming Encounters Date Type Department Care Team (Late st Contact Info) Description 09/06/2024 8:30 AM CDT Office Visit Department of Family Medicine, [facility], in [address] [address] Karla Resendiz, RYAN, C.N.P., D.N.P. [address] [place] [address] documented as of this encounter Procedures Procedure Name Priority Date/Time Associated Diagnosis Comments THYROID FUNCTION CASCADE, S Routine 06/13/2024 12:23 PM CDT Hypothyroidism CBC WITH DIFFERENTIAL, B Routine 06/13/2024 12:23 PM CDT Fatigue MAGNESIUM, S Routine 06/13/2024 12:23 PM CDT Fatigue Rheumatoid Arthritis With Rheumatoid Factor Multiple Sites Without Organ Or Systems Involvement (HCC) Restless Leg Syndrome Hypothyroidism HEMOGLOBIN A1C, B Routine 06/13/2024 12: 23 PM CDT Screening Examination Diabetes Mellitus FERRITIN, S Routine 06/13/2024 12:23 PM CDT Fatigue Immunodeficiency Due To Drugs (HCC) Rheumatoid Arthritis With Rheumatoid Factor Multiple Sites Without Organ Or Systems Involvement (HCC) VITAMIN B12 ASSAY, S Routine 06/13/2024 12:23 PM CDT Fatigue Rheumatoid Arthritis With Rheumatoid Factor Multiple Sites Without Organ Or Systems Involvement (HCC) Restless Leg Syndrome Hypothyroidism BASIC METABOLIC PANEL, S/P Routine 06/13/2024 12:23 PM CDT Fatigue documented in this encounter Results * Ferritin (06/13/2024 12:23 PM CDT) Ferritin, S 19 11 - 328 mcg/L 06/13/2024 7:40 PM CDT [facility] Comment: Biotin has been identified by the industrial engineering intern as a potential interfering substance. Higher concentrations of biotin may be found in multivitamins, hair/nail supplements, and workout supplements. If the result does not match clinical observations, repeat testing after patient refrains from the use of supplements for at least 12 hours. Blood (Blood, Venous) 06/13/2024 12:23 PM CDT 06/13/2024 6:53 PM CDT Karla Resendiz APRN, C.N.P., D.N.P. LAB BLOOD ADD-ON [facility] [address] [place] [address], [facility] in [place] [address] [place] [phone] * Vitamin B12 Assay (06/13/2024 12:23 PM CDT) Pathologist [facility] Vitamin B12 Assay, S 265 232 - 1245 ng/L 06/13/2024 9:10 PM CDT [facility] Comment: Biotin has been identified by the industrial engineering intern as a potential interfering substance. Higher concentrations of biotin may be found in multivitamins, hair/nail supplements, and workout supplements. If the result does not match clinical observations, repeat testing after patient refrains from the use of supplements for at least 12 hours. Blood (Blood, Venous) 06/13/2024 12:23 PM CDT 06/13/2024 8:25 PM CDT Krala Resendiz APRN, Daren.N.P., D.N.P. LAB BLOOD ADD-ON [facility] [address] [place] [address], [facility] [place] [address] * Magnesium (06/13/2024 12:23 PM CDT) Pathologist [facility] Magnesium, P 2.3 1.7 - 2.3 mg/dL 06/13/2024 7:32 PM CDT [facility] Blood (Blood, Venous) 06/13/2024 12:23 PM CDT 06/13/2024 6:53 PM CDT Karla Resendiz APRN C.N.P., D.N.P. LAB BLOOD ADD-ON [facility] [address] [place] [address], [facility] in [place] [address] [place] [address] [place] [address] * Hemoglobin A1c (06/13/2024 12:23 PM CDT) [facility] Hemoglobin A1c, B 5.5 4.2 - 5.6 % 06/13/2024 7:29 PM CDT [facility] Blood (Blood, Venous) 06/13/2024 12:23 PM CDT 06/13/2024 6:53 PM CDT Karla Resendiz APRN, C.N.P., D.N.P. LAB BLOOD ADD-ON [facility] [address] [place] [address], [facility] in [place] [address] [place] [address] * (ABNORMAL) Basic Metabolic Panel (06/13/2024 12:23 [...] PM CDT 06/13/2024 6:53 PM CDT Karla Livia Portillo APRNNLeisaP., D.N.P. LAB BLOOD ADD-ON [facility] [address] [place] [address], [facility] in [place] [address] [place] [address] * (ABNORMAL) CBC with Differential, Blood (06/13/2024 [...] Resendiz APRN, C.N.P., D.N.P. LAB BLOOD ADD-ON [facility] [address] [place] [address], [facility] in [address] [address] * Thyroid Function [place] (06/13/2024 12:23 PM CDT) TSH, Sensitive 0.4 0.3 - 4.2 mIU/L 06/13/2024 7:40 PM CDT [facility] Blood (Blood, Venous) 06/13/2024 12:23 PM CDT 06/13/2024 6:53 PM CDT Karla Resendiz APRN, C.N.P., D.N.P. LAB BLOOD ADD-ON Performing Organization Address City/[facility]/ZIP Co de Phone Number [facility] [address] [place] [address], [facility] in [address] [address] documented in this encounter Visit Diagnoses Diagnosis Hypothyroidism Fatigue Screening Examination Diabetes Mellitus Rheumatoid Arthritis With Rheumatoid Factor Multiple Sites Without Organ Or Systems Involvement (HCC) Restless Leg Syndrome Immunodeficiency Due To Drugs (HCC) documented in this encounter Additional Health Concerns Assessment Noted Time PHQ-9 Depression Total Score: 7 06/13/20 24 1:13 PM CDT documented as of this encounter Care Teams Conciliator Relationship Specialty Start Date End Date Karla Resendiz APRN, C.N.P., D.N.P. [address] [place] [address] PCP - General 05/19/17 documented as of this encounter
--- OUTSIDE RECORDS SUMMARY | 2024-06-18 16:55 | XMS_ITS | Encounter Summary ---
Author Organization [facility] Address [address] [place] [address] Care Team Providers Care Box Lining Machine Feeder Name Role Phone Karla Resendiz APRN, C.N.P., D.N.P. Primary Care Provider Reason for Referral * Outpatient (Routine) - Closed Specialty Diagnoses / Procedures Referred By Contac t Referred To Contact Diagnoses Fatigue Procedures ECG 12 Lead Karla Resendiz APRN, C.N.P., D.N.P. [address] [place] [address] [facility] Referral ID Status Reason Start Date Expiration Date Visits Re quested Visits Authorized [id number] Closed 06/13/2024 06/13/2025 1 1 Reason for Visit * Outpatient (Routine) - Closed Specialty Diagnoses / Procedures Referred By Contac t Referred To Contact Diagnoses Fatigue Procedures ECG 12 Lead Karla Resendiz APRN, C.N.P., D.N.P. [address] [place] [address] [facility] Region Referral ID Status Reason Start Date Expiration Date Visits Re quested Visits Authorized [id number] Closed 06/13/2024 06/13/2025 1 1 Encounter Details Date Type Department Care Team (Latest Contact Info) Description 06/13/2024 11:48 AM CDT - 06/13/2024 11:59 PM CDT Hospital Encounter Department of Laboratory Medicine in [place], [place] [address] [place] [address] Karla Resendiz APRN, C.N.P., D.N.P. [address] [place] [address] Fatigue Discharge Disposition: Home or Self Care Social History Tobacco Use Types Packs/Day Years Used Date Smoking Tobacco: Never Passive Smoke Exposure: Past Smokeless Tobacco: Never Alcohol Use Standard Drinks/Week Comments Yes 2 (1 standard drink = 0.6 oz pur e alcohol) [facility] Utilities Answer Date Recorded In the past 12 months has e [employer], gas, oil, or water [employer] threatened to shut off services in your [...] declined 07/29/2022 How often do you attend faith or roman catholic serv ices? Patient declined 07/29/2022 Do you belong to any clubs o r organizations such as faith groups, unions, fraternal or athletic groups, or [...] Answer Date Recorded PHQ-2 Score 2 06/13/2024 [facility] - Occupational Stress Questionnaire Answer Date [...] your living situation today? I have a [facility] place to live 01/11/2024 Education Answer Date [...] CDT Office Visit Department of Family Medicine, [facility], in [address] [address] Karla Resendiz APRN, C.N.P., D.N.P. [address] [place] [address] documented as of this encounter Procedures Procedure Name Priority Date/Time Associated Diagnosis Comments ECG Routine 06/13/2024 12:17 PM CDT Fatigue documented in this encounter Results * ECG 12 Lead (06/13/2024 12:17 PM CDT) Ventricular Rate ECG/Min 63 BPM MUSE RI Interval 166 ms MUSE QRSD Interval 84 [...] Karla Resendiz APRN, C.N.P., D.N.P. ECG ORDERABLES MUSE NA documented in this encounter Visit Diagnoses Diagnosis Fatigue documented in this encounter Additional Health Concerns Assessment Noted Time PHQ-9 Depression Total Score: 7 06/13/20 24 1:13 PM CDT documented as of this encounter Care Teams Box Lining Machine Feeder Relationship Specialty Start Date End Date Karla Resendiz APRN C.N.P., D.N.P. [address] [place] [phone] PCP - General 05/19/17 documented as of this encounter
--- OUTSIDE RECORDS SUMMARY | 2024-06-18 16:55 | XMS_ITS | Encounter Summary ---
Author Organization [facility] Address [address] [place] [address] Care Team Providers Care Correctional Therapy Teacher Name Role Phone Karla Resendiz APRN, C.N.P., D.N.P. Primary Care Provider Reason for Referral * Outpatient (Routine) - Authorized Specialty Diagnoses / Procedures Referred By Contac t Referred To Contact Family Medicine Karla Resendiz APRN, C.N.P., D.N.P. [address] [place] [address] [facility] Referral ID Status Reason Start Date Expiration Date V isits Requested Visits Authorized [id number] Authorized 06/13/2024 12/13/2025 1 1 * Outpatient (Routine) - Authorized Specialty Diagnoses / Procedures Referred By Contac t Referred To Contact Diagnoses Rheumatoid Arthritis With Rheumatoid Factor Multiple Sites Without Organ Or Systems Involvement (HCC) Restless Leg Syndrome Polymyositis (HCC) Procedures EMG Karla Resendiz APRN, C.N.P., D.N.P. [address] [place] [address] [facility] Region Referral ID Status Reason Start Date Expiration Date V isits Requested Visits Authorized [id number] Authorized 06/13/2024 06/13/2025 1 1 * Outpatient (Routine) - Closed Specialty Diagnoses / Procedures Referred By Ariana bedolla Referred To Contact Diagnoses Fatigue Procedures ECG 12 Lead Karla Resendiz APRN C.N.P., D.N.P. [address] [place] [phone] [facility] Region Referral ID Status Reason Start Date Expiration Date Visits Re quested Visits Authorized [id number] Closed 06/13/2024 06/13/2025 1 1 Reason for Visit * Reason Comments Follow-up * Outpatient (Routine) - Closed Specialty Diagnoses / Procedures Referred By Ariana bedolla Referred To Contact Family Medicine Karla Resendiz APRN C.N.P., D.N.P. [address] [place] [phone] [facility] Referral ID Status Reason Start Date Expiration Date Visits Re quested Visits Authorized [id number] Closed 03/14/2024 09/13/2025 1 1 Encounter Details Date Type Department Care Team (Late st Contact Info) Description 06/13/2024 11:00 AM CDT Office Visit Department of Family Medicine, [facility], in [address] [phone] Karla Resendiz APRN, C.N.P., D.N.P. [address] [place] [phone] Fatigue (Primary Dx); Immunodeficiency Due To Drugs [...] drink = 0.6 oz pur e alcohol) [facility] Utilities Answer Date Recorded In the past 12 months has e [employer], gas, oil, or water [employer] threatened to shut off services in your [...] declined 07/29/2022 How often do you attend caodaism or adventist serv ices? Patient declined 07/29/2022 Do you belong to any clubs o r organizations such as caodaism groups, unions, fraternal or athletic groups, or [...] Answer Date Recorded PHQ-2 Score 2 06/13/2024 [facility] - Occupational Stress Questionnaire Answer Date Recorded [...] your living situation today? I have a st [facility] place to live 01/11/2024 Education Answer [...] PM CDT documented as of this encounter Last Filed Vital Signs Vital Sign Reading Time Taken Comments Blood Pressure 105/65 06/13/2024 10:35 AM CDT Pulse 74 06/13/2024 10:35 AM CDT Temperature 36.8 ??C (98.2 ??F) 06/13/2024 1 0:35 AM CDT Respiratory Rate - - Oxygen Saturation - - Inhaled Oxygen Concentration - - Weight 64.7 kg (142 lb 10.2 oz) 024 10:35 AM CDT Height - - Body Mass Index 21.87 03/11/2024 10:28 AM CDT documented in this encounter Patient Instructions * Patient Instructions* Karla Resendiz APRN, C.N.P., D.N.P. - 06/13/2024 11:00 AM CDT [employer]- instructional consultant name: Oriana Shearer You can google the candy hallpike maneuver and do this at home when you have a vertigo flare... and this will help you to determine which is affected Then perform the eply maneuver to whatever affected side. Labs and EKG of your heart today Schedule an EMG to be done in [place] when you can to recheck electricity/muscles in the legs. Follow up again in 2 months (after testing) Hep B vaccine?? Do we do the series (total dose of 2 shots) documented in this encounter Progress Notes * Karla Resendiz APRN, C.N.P., D.N.P. - 06/13/2024 11:00 AM CDT SUBJECTIVE CHIEF COMPLAINT/REASON FOR VISIT Josefina Esparza is a 59 y.o. female who presents for evaluation of Follow-up. HISTORY OF PRESENT ILLNESS Josefina Esparza is a 59 y.o. female who presents for evaluation of Follow-up. Patient presents to clinic today for ongoing medical care. She has recently followed up with Podiatry Services in which she underwent a steroid injection to her left foot to help with some pain that she was having. She continues following up with Rheumatology services for her polymyositis and rheumatoid arthritis. She continues on prednisone therapy but is hopeful she will be able to reduce her prednisone from 5 mg back to 1 mg daily. She has had x-ray imaging completed of her left foot May which noted stable scattered erosive changes affecting multiple metatarsal heads. She has not had any updated imaging of the left foot. She does feel that the steroid injection has provided some benefit. However, she continues having some significant fatigue affecting her ADLs. She does reportthat her nights are somewhat restless due to a restless leg syndrome. She is currently taking jgur-zqk-avfrbyg magnesium at this time. She does trialed making dietary modifications to overall improveher health and wellness. While her restless leg does not affect her during the daytime she does continue taking Lyrica both for chronic pain management in addition her mental well-being that was initiated by psychiatry services. Social History Social History Narrative REVIEW OF SYSTEMS Pertinent positives as noted above. The remainder of ROS is negative. Allergies, past medical, social, and family history reviewed. OBJECTIVE VITAL SIGNS Vitals: 06/13/24 1035 BP: 105/65 BP Location: Right arm Patient Position: Sitting Cuff Size: Regular Pulse: 74 Temp: 36.8 ??C TempSrc: Temporal Weight: 64.7 kg Vitals and nursing note reviewed. Constitutional Appearance: Normal appearance. HENT Head: Normocephalic and atraumatic. Right Ear: External ear normal. Left Ear: External ear normal. Cardiovascular Rate and Rhythm: Normal rate and regular rhythm. Heart sounds: Normal heart sounds. Pulmonary Effort: Pulmonary effort is normal. Breath sounds: Normal breath sounds. Neurological Mental Status: She is alert and oriented to person, place, and time. Psychiatric Mood and Affect: Mood normal. Behavior: Behavior normal. Thought Content: Thought content normal. Judgment: Judgment normal. 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) #3 Rheumatoid Arthritis With Rheumatoid Factor Multiple Sites Without Organ Or Systems Involvement ([facility]) #4 Restless Leg Syndrome #5 Hypothyroidism Overview: Unspecified hypothyroidism Orders: - Thyroid Function [place]; Future; Expected date: 06/13/2024 #6 Screening Examination Diabetes Mellitus - Hemoglobin A1c; Future; Expected date: 06/13/2024 #7 Polymyositis ([facility]) Other orders - Family Medicine office visit (clinic) - Magnesium; Future; Expected date: 06/13/2024 - Vitamin B12 Assay; Future; Expected date: 06/13/2024 - Ferritin; Future; Expected date: 06/13/2024 - EMG; Future; Expected date: 06/13/2024 - Family Medicine office visit (clinic); Future; Expected date: 08/12/2024 Labs are currently pending for follow up on her fatigue. ECG is currently updated as well. I do recommend an EMG be completed of the lower extremities given her history of myositis which maybe helpful while comparing to her prior EMG that was completed in 2019 while we monitor potential disease progression. In addition, this would also be beneficial given she does have history of lumbar radiculopathy. EMG findings will also help determine whether or not there could be further dose adjustment with her Lyrica long-term. However, we did also discuss the possibility of tapering down and potentially off of her bupropion however, we will need to ensure mental stability with titration. Patient stated understanding of the treatment plan. All questions were addressed. documented in this encounter Plan of Treatment Upcoming Encounters Date Type Department Care Team (Late st Contact Info) Description 09/06/2024 8:30 AM CDT Office Visit Department of Family Medicine, [facility], in [address] [phone] Kalra Resendiz APRN, C.N.P., D.N.P. [address] [place] [phone] Scheduled Orders Name Type Priority Associated Diagnoses Orde r Schedule EMG Neurology Routine Rheumatoid Arthritis With Rheumatoid Factor Multiple Sites Without Organ Or Systems Involvement (HCC) Restless Leg Syndrome Polymyositis (HCC) Expected: 06/13/2024, Expires: 09/13/2025 Scheduled Referrals Name Type Priority Associated Diagnoses Orde r Schedule Family Medicine office visit (clinic) Outpatient Referral Routine Expected: 08/12/2024, Expires: 09/13/2025 documented as of this encounter Results * Ferritin (06/13/2024 12:23 PM CDT) Ferritin, S 19 11 - 328 mcg/L 06/13/2024 7:40 PM CDT R[facility] Comment: Biotin has been identified by the counterintelligence/humint specialist as a potential interfering substance. Higher concentrations of biotin may be found in multivitamins, hair/nail supplements, and workout supplements. If the result does not match clinical observations, repeat testing after patient refrains from the use of supplements for at least 12 hours. Blood (Blood, Venous) 06/13/2024 12:23 PM CDT 06/13/2024 6:53 PM CDT Karla Resendiz APRN, C.N.P., D.N.P. LAB BLOOD ADD-ON [facility] [address] [place] [address], [facility] RDWG [facility] [place] [address] [place] [phone] * Vitamin B12 Assay (06/13/2024 12:23 PM CDT) Vitamin B12 Assay, S 265 232 - 1245 ng/L 06/13/2024 9:10 PM CDT ECLR Comment: Biotin has been identified by the counterintelligence/humint specialist as a potential interfering substance. Higher concentrations of biotin may be found in multivitamins, hair/nail supplements, and workout supplements. If the result does not match clinical observations, repeat testing after patient refrains from the use of supplements for at least 12 hours. Blood (Blood, Venous) 06/13/2024 12:23 PM CDT 06/13/2024 8:25 PM CDT Daren Bravo APRN.N.P., D.N.P. LAB BLOOD ADD-ON Performing Organization Address City/[facility]/ZIP Co de Phone Number [facility] [address] [place] [address], [facility] ECLR [facility] [place] [address] * Magnesium (06/13/2024 12:23 PM CDT) Magnesium, P 2.3 1.7 - 2.3 mg/dL 06/13/2024 7:32 PM CDT RDW[facility] Blood (Blood, Venous) 06/13/2024 12:23 PM CDT 06/13/2024 6:53 PM CDT Daren Bravo APRN.N.P., D.N.P. LAB BLOOD ADD-ON Performing Organization Address [facility] Co de Phone Number [facility] [address] [place] [address], [facility] RDWG [facility] [place] [address] [place] [phone] * Hemoglobin A1c (06/13/2024 12:23 PM CDT) Hemoglobin A1c, B 5.5 4.2 - 5.6 % 06/13/2024 7:29 PM CDT RDW[facility] Blood (Blood, Venous) 06/13/2024 12:23 PM CDT 06/13/2024 6:53 PM CDT Daren Bravo APRN.N.P., D.N.P. LAB BLOOD ADD-ON Performing Organization Address City/[facility]/ZIP Co de Phone Number [facility] [address] [address], [facility] RDWG [facility] [place] REYMUNDO Boyce [phone] * (ABNORMAL) Basic Metabolic Panel (06/13/2024 12:23 [...] Resendiz APRN, C.N.P., D.N.P. LAB BLOOD ADD-ON [facility] [address] [place] [address], [place] RDWG [facility] [place] [address] [place] [address] * (ABNORMAL) CBC with Differential, Blood (06/13/2024 [...] PM CDT 06/13/2024 6:53 PM CDT Karla L Resendiz [employer]FIN[employer]ER, C.N.P., D.N.P. LAB BLOOD ADD-ON [facility] [address] [place] [address], [facility] [place] [address] [place] [phone] * Thyroid Function [place] (06/13/2024 12:23 PM CDT) TSH, Sensitive 0.4 0.3 - 4.2 mIU/L 06/13/2024 7:40 PM CDT RDWG Blood (Blood, Venous) 06/13/2024 12:23 PM CDT 06/13/2024 6:53 PM CDT Karla Mona Resendiz APRN, C.N.P., D.N.P. LAB BLOOD ADD-ON Performing Organization Address City/[facility]/ZIP Co de Phone Number [facility] [address] [place] [address], [facility] [place] [address] [place] [address] * ECG 12 Lead (06/13/2024 12:17 PM CDT) Ventricular Rate ECG/Min 63 BPM MUSE [place] Interval 166 ms MUSE QRSD Interval 84 ms MUSE QT Interval 404 ms MUSE QTC Interval 413 ms MUSE P [place] 73 degrees MUSE R [place] 78 degrees MUSE T Wave [place] 64 degrees MUSE 06/13/2024 12:1 7 PM [...] documented in this encounter Visit Diagnoses Diagnosis Fatigue- Primary Immunodeficiency Due To Drugs (HCC) Rheumatoid Arthritis With Rheumatoid Factor Multiple Sites Without Organ Or Systems Involvement (HCC) Restless Leg Syndrome Hypothyroidism Screening Examination Diabetes Mellitus Polymyositis (HCC) Fatigue documented in this encounter Additional Health Concerns Assessment Noted Time PHQ-9 Depression Total Score: 7 06/13/20 24 1:13 PM CDT documented as of this encounter Care Teams Correctional Therapy Teacher Relationship Specialty Start Date End Date Karla Resendiz APRN, C.N.P., D.N.P. [address] [place] [phone] PCP - General 05/19/17 documented as of this encounter
--- OUTSIDE RECORDS SUMMARY | 2024-06-18 16:56 | XMS_ITS | Encounter Summary ---
Author Organization [facility] Address [address] [place] [address] Care Team Providers Care Ornamental Iron Erector Name Role Phone Karla Resendiz APRN, C.N.P., D.N.P. Primary Care Provider Reason for Referral * Physical Therapy (Routine) - Authorized Specialty Diagnoses / Procedures Referred By Ariana bedolla Referred To Contact Diagnoses Pain Neck Procedures PT Ongoing treatment Karla Resendiz APRN, C.N.P., D.N.P. [facility] [place] [address] [facility] Referral ID Status Reason Start Date Expiration Date V isits Requested Visits Authorized [id number] Authorized 05/15/2024 05/15/2025 99 99 Reason for Visit * Appointment Request (Routine) - Closed Specialty Diagnoses / Procedures Referred By Ariana t Referred To Contact Physical Therapy Referral ID Status Reason Start Date Expiration Date Visits Re quested Visits Authorized [id number] Closed 05/15/2024 05/15/2025 1 1 Encounter Details Date Type Department Care Team (Latest Contact Info) Description 05/15/2024 2:15 PM CDT Comprehensive Visit Department of Rehabilitation Services in [address] [place] [phone] Karla Resendiz APRN, C.N.P., Natalie.N.PLeisa [address] [place] [address] Nan Howard P.T. [address] [phone] Pain Neck (Primary Dx) Social History Tobacco Use Types Packs/Day Years Used Date Smoking Tobacco: Never Passive Smoke Exposure: Past Smokeless Tobacco: Never Alcohol Use Standard Drinks/Week Comments Yes 2 (1 standard drink = 0.6 oz pur e alcohol) [facility] Utilities Answer Date Recorded In the past 12 months has e electric, gas, oil, or water company threatened to shut off services in your [...] declined 07/29/2022 How often do you attend baptist or taoist serv ices? Patient declined 07/29/2022 Do you belong to any clubs o r organizations such as baptist groups, unions, fraternal or athletic groups, or [...] Answer Date Recorded PHQ-2 Score 1 01/11/2024 [facility] Occupat ional [facility] - Occupational Stress Questionnaire Answer Date [...] PM CDT documented as of this encounter Consult Notes * Nan Howard P.T. - 05/15/2024 2:15 PM CDT Physical Therapy Outpatient Evaluation/Treatment By co-signing this note, the provider certifies the therapy being provided to this patient is reasonable and necessary for the diagnosis or treatment of this patient. SUBJECTIVE Patient's Name: Josefina Esparza Referring Provider: No ref. provider found Visit Diagnosis: 1. Pain Neck Reason for Referral: PT eval and treat. Payor: MEDICARE / Plan: MEDICARE A AND B / Product Type: Medicare / [employer] Visit Count: 1 PERTINENT MEDICAL / SURGICAL HISTORY: Patient Active Problem List Diagnosis Polymyositis (HCC) Raynaud's Disease Hypothyroidism Urinary Urge Incontinence Cataract Senile Posterior Subcapsular Bilateral Cataract Senile Posterior Subcapsular Right Constipation Dry Eye Syndrome Bilateral Gastroesophageal Reflux Disease NOS Medication Therapy Floor Layer Not Anticoagulant Migraine Headache Osteopenia Presbyopia Pseudotumor Cerebri Restless Leg Syndrome Vertigo Pain Low Back Unspecified Rheumatoid Arthritis With Rheumatoid Factor Multiple Sites Without Organ Or Systems Involvement (HCC) Depression Anxiety Pain Back Thoracic Radiculopathy 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 HYSTERECTOMY TOTAL VAGINAL N/A 2006 Vaginal hysterectomy REDUCTION MAMMAPLASTY Bilateral Surgeon: Misty Farmer MD; Location: [facility] OR REPAIR OF BLADDER N/A 2006 Repair of bladder Patient presents to outpatient physical therapy for evaluation of symptoms including: Neck pain and dizziness. Overall patient reports status is worsening . History of Present Illness: Patient reports insidious onset of neck pain approximately a week ago. Patient's symptoms have been worsening. She feels as if her neck is locked. She also had an episode of dizziness when looking left. Patient has had a past medical history of BPPV but has had successful canalith repositioning with resolution of symptoms. Prior Function/Occupational Profile: Intermittent history of neck pain. Additional Staff Present During Session: no Patient goals: Resolution of symptoms. OBJECTIVE PHYSICAL EXAM Pain: 12/30 Ortho Exam Patient ambulates into physical therapy today safely independently without the use an assistive device. Patient demonstrates appropriate posture. Patient demonstrates awareness for posture in sitting and standing. Cervical range of motion is limited by 25% in all directions. Upper extremity range of motion is within normal limits. Manual muscle testing the upper extremities is a 5/5 in strength. Tax Compliance Agent strength is intact and equal bilaterally. Numbness and tingling noted in the right thumb. Palpation reveals trigger points in the bilateral upper trapezius. Patient also has limited facet joint movement with PA mobs to C3 and C4. Also has limited movement spinous process of C7. TREATMENT Treatment today consisted of: Performed manual soft tissue mobilization to cervical musculature and trigger point release to the bilateral upper trapezius. Performed PA mobs to the facet joints of C2 through C7 focusing in on C3 and C4. Grade 2 mobs were performed. Also performed PA mobs to spinous processes of the lower cervical spine focusing in on C7. Completed our session with suboccipital release. Hallpike Hemant test was performed and did test negative for positional vertigo today. Patient was taken through the maneuversfor the left posterior canal to get her up with no reproduction of symptoms. Assessment Clinical Impression: Patient presents to physical therapy with signs and symptoms consistent with neck pain and dizziness. Impairments: Pain, range of motion and dizziness. Functional deficits: Decreased positional and activity tolerance. Rehab Potential: Patient has good potential to achieve established physical therapy goals within the time frame outlined below, provided active participation in the physical therapy treatment plan and home program. Functional Goals and Timeframes: PT Outpatient Goals PT Goal #1: Patient will demonstrate full pain-free cervical range of motion. PT Goal #1 Date: 06/28/24 PT Goal #2: Patient will report resolution of pain. PT Goal #2 Date: 06/28/24 PT Goal #3: Patient reports centralization of symptoms. PT Goal #3 Date: 06/28/24 PT Goal #4: Patient report resolution of dizziness. PT Goal #4 Date: 06/28/24 Plan Patient was educated regarding evaluative findings, diagnosis, prognosis, potential risks and benefits of rehabilitation interventions. A collaborative effort was used to establish goals and plan of care. The patient was informed of the right to make decisions regarding care, including refusal of examination or treatment or selection of services from another provider if desired. The treatment plan may be progressed or modified based upon the patient's response to treatment. Treatment Plan: Start of Plan of Care: 05/15/2024 Number of Visits: 12 visits PT Duration: 6 weeks PT Frequency: 2x/week if needed Treatment interventions may include: Manual soft tissue mobilization as well as manual therapies and joint mobilizations. Stretching and strengthening may be performed as well. Plan for next session: Manual therapy and joint mobilizations. Time Spent with Patient Evaluations PT Eval - Low Complexity: 30 min Time Tracking Total Treatment Time (min): 30 min documented in this encounter Plan of Treatment Upcoming Encounters Date Type Department Care Team (Late st Contact Info) Description 09/06/2024 8:30 AM CDT Office Visit [facility] in [address] [phone] Krala Resendiz APRN, C.N.P., D.N.P. [address] [place] [phone] documented as of this encounter Visit Diagnoses Diagnosis Pain Neck- Primary documented in this encounter Additional Health Concerns Assessment Noted Time PHQ-9 Depression Total Score: 6 10/31/20 23 10:21 AM MICROBIOLOGY TECHNICIAN documented as of this encounter Care Teams Ornamental Iron Erector Relationship Specialty Start Date End Date Karla Resendiz APRN, C.N.P., D.N.P. [address] [place] [phone] PCP - General 05/19/17 documented as of this encounter
--- OUTSIDE RECORDS SUMMARY | 2024-06-18 16:56 | XMS_ITS | Encounter Summary ---
Author Organization [facility] Address [address] [place] [address] Care Team Providers Care Rn L And D Name Role Phone Karla Resendiz APRN, C.N.P., D.N.P. Primary Care Provider Reason for Referral * Outpatient (Routine) - Closed Specialty Diagnoses / Procedures Referred By Ariana bedolla Referred To Contact Diagnoses Screening Mammogram Breast Cancer Procedures BI Breast Screening Bilateral with Tomosynthesis Karla Resendiz APRN, C.N.P., D.N.P. [address] [place] [address] [facility] Referral ID Status Reason Start Date Expiration Date Visits Re quested Visits Authorized [id number] Closed 01/31/2024 01/30/2025 1 1 Reason for Visit * Outpatient (Routine) - Closed Specialty Diagnoses / Procedures Referred By Ariana bedlola Referred To Contact Diagnoses Screening Mammogram Breast Cancer Procedures BI Breast Screening Bilateral with Tomosynthesis Karla Resendiz APRN, C.N.P., D.N.P. [address] [place] [address] [facility] Region Referral ID Status Reason Start Date Expiration Date Visits Re quested Visits Authorized [id number] Closed 01/31/2024 01/30/2025 1 1 Encounter Details Date Type Department Care Team (Latest Contact Info) Description 06/03/2024 9:15 AM CDT - 06/03/2024 11:59 PM CDT Hospital Encounter Department of Radiology in [address] [address] Karla Rseendiz, RYAN, C.N.P., D.N.P. [address] [place] [address] Screening Mammogram Breast Cancer Discharge Disposition: Home or Self Care Social History Tobacco Use Types Packs/Day Years Used Date Smoking Tobacco: Never Passive Smoke Exposure: Past Smokeless Tobacco: Never Alcohol Use Standard Drinks/Week Comments Yes 2 (1 standard drink = 0.6 oz pur e alcohol) [facility] Utilities Answer Date Recorded In the past 12 months has e [employer], gas, oil, or water [employer] threatened to shut off services in your [...] declined 07/29/2022 How often do you attend orthodoxy or latter day serv ices? Patient declined 07/29/2022 Do you belong to any clubs o r organizations such as orthodoxy groups, unions, fraternal or athletic groups, or [...] Answer Date Recorded PHQ-2 Score 1 01/11/2024 [facility] - Occupational Stress Questionnaire Answer [...] your living situation today? I have a [facility] place to live 01/11/2024 Education Answer [...] 1 capsule by mouth daily. 07/26/2017 predniSONE (DELTASONE) 5 mg tabletIndications:R heumatoid Arthritis [...] CDT Office Visit Department of Family Medicine, [facility], in [address] [address] Karla Resendiz, RYAN C.N.P., D.N.P. [address] [place] [address] documented as of this encounter Procedures Procedure Name Priority Date/Time Associated Diagnosis Comments BI BREAST SCREENING BILATERAL WITH TOMOSYNTHESIS RAD - Routine (most inpatients and all outpatients) 06/03/2024 9:29 AM CDT Screening Mammogram Breast Cancer documented in this encounter Results * BI Breast Screening Bilateral with Tomosynthesis [...] Annual Screening Mammogram ASSESSMENT: BI-RADS: 1: Negative. Livia Bravo APRNNAlexander, NateN.P. IMG BI PROCEDURES documented in this encounter Visit Diagnoses Diagnosis Screening Mammogram Breast Cancer documented in this encounter Additional Health Concerns Assessment Noted Time PHQ-9 Depression Total Score: 6 10/31/20 23 10:21 AM TEST CONDUCTOR documented as of this encounter Care Teams Rn L And D Relationship Specialty Start Date End Date Karla Resendiz APRN, C.N.Nafisa., D.N.P. [address] [place] [address] PCP - General 05/19/17 documented as of this encounter
--- OUTSIDE RECORDS SUMMARY | 2024-06-18 16:56 | XMS_ITS | Encounter Summary ---
Author Organization [facility] Address [address] [place] [address] Care Team Providers Care Pari Mutuel Ticket Seller Name Role Phone Karla Resendiz APRN, C.N.P., D.N.P. Primary Care Provider Reason for Visit * Reason Comments Med Refill Encounter Details Date Type Department Care Team (Late st Contact Info) Description 04/24/2024 Refill Department of Family Medicine, [facility], in [address] [address] Karla Resendiz APRN, C.N.P., D.N.P. [address] [place] [phone] Med Refill Social History Tobacco Use Types Packs/Day Years Used Date Smoking Tobacco: Never Passive Smoke Exposure: Past Smokeless Tobacco: Never Alcohol Use Standard Drinks/Week Comments Yes 2 (1 standard drink = 0.6 oz pur e alcohol) [facility] Utilities Answer Date Recorded In [...] declined 07/29/2022 How often do you attend confucianist or yazidism serv ices? Patient declined 07/29/2022 Do you belong to any clubs o r organizations such as confucianist groups, unions, fraternal or athletic groups, or [...] Answer Date Recorded PHQ-2 Score 1 01/11/2024 [facility] of Occupat ional Health - Occupational Stress [...] your living situation today? I have a [facility] place to live 01/11/2024 Education Answer Date Recorded What is the highest level of school you have completed or the highest degree you have received? 12th grade 08/20/2019 Sex and Gender Information Value Date Recorded Sex Assigned at Female 07/17/2018 3:01 PM CDT Gender Identity Female 07/17/2018 3:01 PM CDT Sexual Orientation Straight 07/17/2018 3: 01 PM CDT documented as of this encounter Plan of Treatment Upcoming Encounters Date Type Department Care Team (Late st Contact Info) Description 09/06/2024 8:30 AM CDT Office Visit Department of Family Medicine, [facility], in [address] [address] Karla Resendiz, RYAN, C.N.P., D.N.P. [address] [place] [phone] documented as of this encounter Visit Diagnoses Diagnosis Hypothyroidism documented in this encounter Additional Health Concerns Assessment Noted Time PHQ-9 Depression Total Score: 6 10/31/20 23 10:21 AM ENVIRONMENT COORDINATOR documented as of this encounter Care Teams Pari Mutuel Ticket Seller Relationship Specialty Start Date End Date Karla Resendiz APRN, C.N.P., D.N.P. [address] [place] [phone] PCP - General 05/19/17 documented as of this encounter
--- OUTSIDE RECORDS SUMMARY | 2024-06-18 16:56 | XMS_ITS | Encounter Summary ---
Author Organization [facility] Address [address] [place] [address] Care Team Providers Care Salicylic Acid Blender Name Role Phone Karla Resendiz APRN, C.N.P., D.N.P. Primary Care Provider Reason for Referral * Physical Therapy (Routine) - Authorized Specialty Diagnoses / Procedures Referred By Ariana bedolla Referred To Contact Diagnoses Pain Neck Procedures PT Evaluate and treat Karla Resendiz APRN, C.N.P., D.N.P. [address] [place] [phone] [facility] Referral ID Status Reason Start Date Expiration Date V isits Requested Visits Authorized [id number] Authorized 05/15/2024 05/15/2025 99 99 Encounter Details Date Type Department Care Team (Late st Contact Info) Description 05/15/2024 Orders Only Department of Family Medicine, [facility], in [place], [place] [address] [place] [address] Karla Resendiz APRN, C.N.P., D.N.P. [address] [place] [phone] Pain Neck (Primary Dx) Social History Tobacco Use Types Packs/Day Years Used Date Smoking Tobacco: Never Passive Smoke Exposure: Past Smokeless Tobacco: Never Alcohol Use Standard Drinks/Week Comments Yes 2 (1 standard drink = 0.6 oz pur e alcohol) [facility] Utilities Answer Date Recorded In the past 12 months has th e electric, gas, oil, or water company [...] declined 07/29/2022 How often do you attend mu-ism or christianity serv ices? Patient declined 07/29/2022 Do you belong to any clubs o r organizations such as mu-ism groups, unions, fraternal or athletic groups, or [...] Answer Date Recorded PHQ-2 Score 1 01/11/2024 [facility] of Occupat ional [facility] - Occupational Stress Questionnaire Answer Date [...] CDT Office Visit Department of Family Medicine, [facility], in [address] [phone] Karla Resendiz APRN, C.N.P., D.N.P. [address] [place] [phone] documented as of this encounter Visit Diagnoses Diagnosis Pain Neck- Primary documented in this encounter Additional Health Concerns Assessment Noted Time PHQ-9 Depression Total Score: 6 10/31/20 23 10:21 AM NAIL POLISH BRUSH MACHINE FEEDER documented as of this encounter Care Teams Salicylic Acid Blender Relationship Specialty Start Date End Date Karla Resendiz APRN, C.N.P., D.N.P. [address] [place] [phone] PCP - General 05/19/17 documented as of this encounter
--- OUTSIDE RECORDS SUMMARY | 2024-06-18 16:56 | XMS_ITS | Encounter Summary ---
Author Organization [facility] Address [address] [place] [address] Care Team Providers Care Stencil Cutter Machine Name Role Phone Karla Resendiz APRN, C.N.P., D.N.P. Primary Care Provider Reason for Visit * Reason Comments Med Refill Encounter Details Date Type Department Care Team (Late st Contact Info) Description 03/19/2024 Refill Department of Family Medicine, [facility], in [address] [phone] Karla Resendiz APRN, C.N.P., D.N.P. [address] [place] [phone] Med Refill Social History Tobacco Use Types Packs/Day Years Used Date Smoking Tobacco: Never Passive Smoke Exposure: Past Smokeless Tobacco: Never Alcohol Use Standard Drinks/Week Comments Yes 2 (1 standard drink = 0.6 oz pur e alcohol) [facility] Utilities Answer Date Recorded In [...] How often do you attend orthodoxy or voodoo serv ices? Patient declined 07/29/2022 Do you [...] Answer Date Recorded PHQ-2 Score 1 01/11/2024 [facility] of Occupat ional Health - Occupational Stress [...] your living situation today? I have a [facility] place to live 01/11/2024 Education Answer Date [...] Visit Department of Family Medicine, [facility], in [address] [address] Karla Resendiz, RYAN, C.N.P., D.N.P. [address] [place] [phone] documented as of this encounter Visit Diagnoses Not on filedocumented in this encounter Additional Health Concerns Assessment Noted Time PHQ-9 Depression Total Score: 6 10/31/20 23 10:21 AM GRINDING AND POLISHING LABORER documented as of this encounter Care Teams Stencil Cutter Machine Relationship Specialty Start Date End Date Karla Resendiz APRN, C.N.P., D.N.P. [address] [place] [phone] PCP - General 05/19/17 documented as of this encounter
--- OUTSIDE RECORDS SUMMARY | 2024-06-18 16:56 | XMS_ITS | Encounter Summary ---
Author Organization [facility] Address [address] [place] [address] Care Team Providers Care Corner Cutter Name Role Phone Karla Resendiz APRN, C.N.P., D.N.P. Primary Care Provider Reason for Visit * Reason Comments Med Refill Encounter Details Date Type Department Care Team (Late st Contact Info) Description 03/28/2024 Refill Department of Family Medicine, [facility], in [address] [phone] Karla Resendiz APRN, C.N.P., D.N.P. [address] [place] [phone] Med Refill Social History Tobacco Use Types Packs/Day Years Used Date Smoking Tobacco: Never Passive Smoke Exposure: Past Smokeless Tobacco: Never Alcohol Use Standard Drinks/Week Comments Yes 2 (1 standard drink = 0.6 oz pur e alcohol) [facility] Utilities Answer Date Recorded In the [...] declined 07/29/2022 How often do you attend anabaptist or adventism serv ices? Patient declined 07/29/2022 Do you belong to any clubs o r organizations such as anabaptist groups, unions, fraternal or athletic groups, or [...] Answer Date Recorded PHQ-2 Score 1 01/11/2024 [facility] of Occupat ional Health - Occupational Stress [...] your living situation today? I have a [facility] place to live 01/11/2024 Education Answer [...] CDT Office Visit Department of Family Medicine, [facility], in [address] [address] Karla Resendiz, RYAN, C.N.P., D.N.P. [address] [place] [phone] documented as of this encounter Visit Diagnoses Not on filedocumented in this encounter Additional Health Concerns Assessment Noted Time PHQ-9 Depression Total Score: 6 10/31/20 23 10:21 AM OTHER SPATIAL SCIENTIST documented as of this encounter Care Teams Corner Cutter Relationship Specialty Start Date End Date Karla Resendiz APRN, C.N.P., D.N.P. [address] [place] [phone] PCP - General 05/19/17 documented as of this encounter
--- OUTSIDE RECORDS SUMMARY | 2024-06-18 16:57 | XMS_ITS | Encounter Summary ---
Author Organization [facility] [place] [facility] Address [address] [place] [address] Care Team Providers Care Cooker Tender Name Role Phone Karla Resendiz APRN, C.N.P., D.N.P. Primary Care Provider Reason for Visit * Reason Onset Date Comments RX Approval 02/21/2024 Duloxetine HCL 2 0MG Encounter Details Date Type Department Care Team (Latest Contact Info) Description 02/21/2024 Clinical Communication Pharmacy Prior Auth [id number] Marc Naranjo RX Approval (Duloxetine HCL 20MG) Social History Tobacco Use Types Packs/Day Years Used Date Smoking Tobacco: Never Passive Smoke Exposure: Past Smokeless Tobacco: Never Alcohol Use Standard Drinks/Week Comments Yes 2 (1 standard drink = 0.6 oz pur e alcohol) [facility] Utilities Answer Date Recorded In the past 12 months has [facility] [employer], [employer], or water [employer] threatened to shut off services in your [...] declined 07/29/2022 How often do you attend yazidi or anabaptism serv ices? Patient declined 07/29/2022 Do you belong to any clubs o r organizations such as yazidi groups, unions, fraternal or athletic groups, or [...] Answer Date Recorded PHQ-2 Score 1 01/11/2024 [facility] of Occupat ional Health - Occupational Stress [...] your living situation today? I have a [facility] place to live 01/11/2024 Education [...] PM CDT documented as of this encounter Miscellaneous Notes * Telephone Encounter - Marc Naranjo - 02/21/2024 2:32 PM CDT Pharmaceutical prior authorization has been approved for Duloxetine HCL 20MG If you have any follow-up questions, please send an [employer] in [employer] message to [facility] POOL. documented in this encounter Plan of Treatment Upcoming Encounters Date Type Department Care Team (Late st Contact Info) Description 09/06/2024 8:30 AM CDT Office Visit Department of Family Medicine, [facility], in [address] [phone] Karla Resendiz APRN C.N.P., D.N.P. [address] [place] [address] documented as of this encounter Visit Diagnoses Not on filedocumented in this encounter Additional Health Concerns Assessment Noted Time PHQ-9 Depression Total Score: 6 10/31/20 23 10:21 AM FINANCE CLERK documented as of this encounter Care Teams Cooker Tender Relationship Specialty Start Date End Date Karla Resendiz APRN, C.N.P., D.N.P. [address] [place] [address] PCP - General 05/19/17 documented as of this encounter
--- OUTSIDE RECORDS SUMMARY | 2024-06-18 16:57 | XMS_ITS | Encounter Summary ---
Author Organization [facility] Address [address] [place] [address] Care Team Providers Care Burn Center Nurse Name Role Phone Karla Resendiz APRN, C.N.P., D.N.P. Primary Care Provider Reason for Referral * Outpatient (Routine) - Closed Specialty Diagnoses / Procedures Referred By Contac t Referred To Contact Family Medicine Karla Resendiz APRN, C.N.P., D.N.P. [address] [place] [address] [facility] Referral ID Status Reason Start Date Expiration Date Visits Re quested Visits Authorized [id number] Closed 03/14/2024 09/13/2025 1 1 * Outpatient (Routine) - Closed Specialty Diagnoses / Procedures Referred By Contac t Referred To Contact Orthopedic Surgery Diagnoses Pain Foot Left Karla Resendiz APRN, C.N.P., D.N.P. [address] [place] [address] [facility] Referral ID Status Reason Start Date Expiration Date Visits Re quested Visits Authorized [id number] Closed 03/14/2024 09/13/2025 1 1 Scheduling Instructions Ortho internal referral panel order, imaging before Consult visit Reason for Visit * Reason Comments Follow-up Foot Pain left * Outpatient (Routine) - Closed Specialty Diagnoses / Procedures Referred By Ariana bedolla Referred To Contact Family Medicine Karla Resendiz APRN, C.N.P., D.N.P. [address] [place] [phone] [facility] Referral ID Status Reason Start Date Expiration Date Visits Re quested Visits Authorized [id number] Closed 01/11/2024 07/12/2025 1 1 Encounter Details Date Type Department Care Team (Late st Contact Info) Description 03/14/2024 2:00 PM CDT Office Visit Department of Family Medicine, [facility], in [address] [address] Karla Resendiz APRN, C.N.P., D.N.P. [address] [place] [address] Pain Foot Left (Primary Dx) Discharge Disposition: Home or Self Care Social History Tobacco Use Types Packs/Day Years Used Date Smoking Tobacco: Never Passive Smoke Exposure: Past Smokeless Tobacco: Never Alcohol Use Standard Drinks/Week Comments Yes 2 (1 standard drink = 0.6 oz pur e alcohol) [facility] Utilities Answer Date Recorded In the past 12 months has [facility] [employer], oil, or water [employer] threatened to shut off services in your [...] How often do you attend baptist or sabianism serv ices? Patient declined 07/29/2022 Do you [...] Answer Date Recorded PHQ-2 Score 1 01/11/2024 [facility] of Occupat ional Health - [...] today? I have a [facility] place to live 01/11/2024 Education Answer [...] Sign Reading Time Taken Comments Blood Pressure 104/63 03/14/2024 1:46 PM CDT Pulse 76 03/14/2024 1:46 PM CDT Temperature 36.5 ??C (97.7 ??F) 03/14/2024 1:46 PM CD T Respiratory Rate - - Oxygen Saturation - - Inhaled Oxygen Concentration - - Weight 64.7 kg (142 lb 10.2 oz) 03/14/2024 1:46 PM CDT Height - - Body Mass Index 21.87 03/11/2024 10:28 AM CDT documented in this encounter Patient Instructions * Patient Instructions* Karla Resendiz APRN, C.N.P., Natalie.N.P. - 03/14/2024 2:00 PM CDT Mary- 12.5 mg of benadryl tonight to help with allergies and ears Schedule an appt. With podiatry in [place] for the foot Follow up in 3 months documented in this encounter Progress Notes * Karla Resendiz APRN, C.N.P., Natalie.N.P. - 03/14/2024 2:00 PM CDT SUBJECTIVE CHIEF COMPLAINT/REASON FOR VISIT Josefina Esparza is a 59 y.o. female who presents for evaluation of Follow-up and Foot Pain (left). HISTORY OF PRESENT ILLNESS Josefina Esparza is a 59 y.o. female who presents for evaluation of Follow-up and Foot Pain (left). Patient presents to the clinic today with left foot pain between the plantar aspect of the 2nd and 3rd distal metatarsals. She has seen podiatry in the past and has had improvement with steroid injections. She is open to follow up again with podiatry again. She is recently followed up with Rheumatology in which she did require increase on her prednisone to 5 mg daily. Social History Social History Narrative REVIEW OF SYSTEMS Pertinent positives as noted above. The remainder of ROS is negative. Allergies, past medical, social, and family history reviewed. OBJECTIVE VITAL SIGNS Vitals: 03/14/24 1346 BP: 104/63 BP Location: Right arm Patient Position: Sitting Cuff Size: Regular Pulse: 76 Temp: 36.5 ??C TempSrc: Temporal Weight: 64.7 kg Vitals and nursing note reviewed. Constitutional Appearance: Normal appearance. HENT Head: Normocephalic and atraumatic. Right Ear: External ear normal. Left Ear: External ear normal. Neurological Mental Status: She is alert and oriented to person, place, and time. Psychiatric Mood and Affect: Mood normal. Behavior: Behavior normal. Thought Content: Thought content normal. Judgment: Judgment normal. Left plantar foot pain noted between the 2nd and 3rd distal metatarsals on exam. ASSESSMENT / PLAN #1 Pain Foot Left - Orthopedic Surgery - Podiatry foot non surgical consult (clinic); Future; Expected date: 03/14/2024 (After tests) Other orders - Family Medicine office visit (clinic) - Family Medicine office visit (clinic); Future; Expected date: 06/13/2024 Referral to podiatry has been made. All questions addressed. documented in this encounter Plan of Treatment Upcoming Encounters Date Type Department Care Team (Late st Contact Info) Description 09/06/2024 8:30 AM CDT Office Visit Department of Family Medicine, [facility], in [address] [phone] Karla Resendiz APRN, Daren.N.P., D.N.P. [address] [place] [phone] Scheduled Referrals Name Type Priority Associated Diagnoses Order Schedule Orthopedic Surgery - Podiatry foot non surgical consult (clinic) Outpatient Referral Routine Pain Foot Left Expected: 03/14/2024 (Approximate), Expires: 06/13/2025 Family Medicine office visit (clinic) Outpatient Referral Routine Expected: 06/13/2024 (Approximate), Expires: 06/13/2025 documented as of this encounter Visit Diagnoses Diagnosis Pain Foot Left- Primary documented in this encounter Additional Health Concerns Assessment Noted Time PHQ-9 Depression Total Score: 6 10/31/20 23 10:21 AM PROPELLER INSPECTOR documented as of this encounter Care Teams Burn Center Nurse Relationship Specialty Start Date End Date Karla Resendiz APRN, C.N.P., D.N.P. [address] [place] [phone] PCP - General 05/19/17 documented as of this encounter
--- OUTSIDE RECORDS SUMMARY | 2024-06-18 16:57 | XMS_ITS | Encounter Summary ---
Author Organization [facility] Address [address] [place] [address] Care Team Providers Care Tractor Distributor Name Role Phone Karla Resendiz APRN, C.N.P., D.N.P. Primary Care Provider Reason for Referral * MRI/CAT/PET Scan (Routine) - Authorized Specialty Diagnoses / Procedures Referred By Contac t Referred To Contact Radiology Diagnoses Rheumatoid Arthritis With Rheumatoid Factor Multiple Sites Without Organ Or Systems Involvement (HCC) Polymyositis (HCC) Procedures CT Chest without IV Contrast Sheldon Charles M.D. [address] [place] [address] [facility] Referral ID Status Reason Start Date Expiration Date V isits Requested Visits Authorized [id number] Authorized 03/11/2024 03/11/2025 1 1 * Outpatient (Routine) - Authorized Specialty Diagnoses / Procedures Referred By Contac t Referred To Contact Rheumatology Sheldon Charles M.D. [address] [place] [address] [facility] Referral ID Status Reason Start Date Expiration Date V isits Requested Visits Authorized [id number] Authorized 03/11/2024 09/10/2025 1 1 Reason for Visit * Outpatient (Routine) - Closed Specialty Diagnoses / Procedures Referred By Ariana bedolla Referred To Contact Rheumatology Sheldon Charles M.D. [address] [place] [address] [facility] Referral ID Status Reason Start Date Expiration Date Visits Re quested Visits Authorized [id number] Closed 04/03/2023 04/02/2026 1 1 Encounter Details Date Type Department Care Team (Late st Contact Info) Description 03/11/2024 10:30 AM CDT Office Visit Department of Vascular Medicine in [place], [place] [address] [place] [phone] Sheldon Charles M.D. [address] [place] [address] Rheumatoid Arthritis With Rheumatoid Factor Multiple Sites Without Organ Or Systems Involvement (HCC) (Primary Dx); Polymyositis (HCC) Social History Tobacco Use Types Packs/Day Years Used Date Smoking Tobacco: Never Passive Smoke Exposure: Past Smokeless Tobacco: Never Alcohol Use Standard Drinks/Week Comments Yes 2 (1 standard drink = 0.6 oz pur e alcohol) [facility] Utilities Answer Date Recorded In the past 12 months has e [employer], gas, oil, or water [employer] threatened to shut off services in your [...] declined 07/29/2022 How often do you attend advent or pentecostalism serv ices? Patient declined 07/29/2022 Do you belong to any clubs o r organizations such as advent groups, unions, fraternal or athletic groups, or [...] Answer Date Recorded PHQ-2 Score 1 01/11/2024 [facility] of Occupat ional Health - Occupational Stress [...] your living situation today? I have a [facility] to live 01/11/2024 Education Answer [...] Sign Reading Time Taken Comments Blood Pressure 131/83 03/11/2024 10:29 AM CDT Pulse 84 03/11/2024 10:28 AM CDT Temperature - - Respiratory Rate - - Oxygen Saturation - - Inhaled Oxygen Concentration - - Weight 63.9 kg (140 lb 14 oz) 03/11/2024 10:28 A M CDT Height 172 cm (5' 7.72) 03/11/2024 10:28 AM CDT Body Mass Index 21.6 03/11/2024 10:28 AM CDT documented in this encounter Progress Notes * Sheldon Charles M.D. - 03/11/2024 10:30 AM CDT SUBJECTIVE CHIEF COMPLAINT / REASON FOR VISIT Ms. Esparza is a 59 y.o. female presenting today for follow up of polymyositis and inflammatory arthritis. HISTORY OF PRESENT ILLNESS Rheumatic Disease history Mrs. Esparza has been followed for polymyositis overlap with erosive inflammatory arthritis. She is Justine-1 positive antibody positive as well as rheumatoid factor and CCP antibody positive. She also has a history of mild interstitial lung disease. She has received prednisone, methotrexate, Arava and CellCept in the past. She has received anti-TNF therapy in the form of Humira and Remicade. Later, we discontinued anti-TNF therapy, and Mrs. Esparza received rituximab in January and October,. Her most recent Rituximab therapy (maintenance) was in October, and thereafter has had prolonged B-cell depletion, persisting until 2023. Mrs. Esparza has essentially been in complete clinical remission since then, although requiring low dose prednisone for management of low grade inflammatory joint symptoms. She remains on duloxetine and pregabalin for neck pain. Most recent imaging: Chest CT in September 2022 showed minimal bibasilar reticular and ground-glass opacities, but no associated bronchiectasis or honeycombing. Current visit Ms. Esparza tried reducing prednisone to 2 mg daily, but with that had increase in arthralgia, particularly in the MTP joints of both feet. She is now back to prednisone 3 mg daily but continues to have discomfort in the MTP joints of both feet. No other inflammatory joint symptoms. She has intermittent bilateral hip discomfort. Morning stiffness lasts approximately 30 minutes. No current respiratory symptoms. However, she wasill with prolonged bronchitis in January. Symptoms eventually resolved with antibiotics, glucocorticoids, and inhalers. Chest x-ray was negative per report. No muscle weakness. No new rashes. She was seen by Endocrinology in October 2022 for low bone mass, recommendation was to recheck bone density again in 1 year. Bone density was rechecked November 2023, no significant change from previous. The following portions of the patient's history were reviewed and updated as appropriate: allergies, current medications, family history, medical history, social history, surgical history and problemlist. REVIEW OF SYSTEMS Pertinent positives and negatives as documented in the above history of present illness. Constitutional: Positive for fatigue. ENT: Positive for sinus congestion. Musculoskeletal: Positive for pain or stiffness in the joints, back pain, joint swelling and musclepain/stiffness. Neurological: Positive for numbness or shooting pain in hands, arms, legs, or feet, loss of balanceor tendency to fall easily and headaches. The following systems were negative: Skin, Eyes, Respiratory, Cardiovascular, Gastrointestinal, Genitourinary, Hematologic, Psychiatric OBJECTIVE PHYSICAL EXAM Vitals: 03/11/24 1029 BP: 131/83 Pulse: General: Alert, oriented, appropriate affect, no apparent distress. Eyes: Clear conjunctivae and lids. Lymph: No cervical or supraclavicular adenopathy. Skin: No vasculitic rash. Heart: Regular rate. No murmurs or rubs. Lungs: Clear to auscultation bilaterally. Joints: No synovitis of the hand small joints, wrists, elbows, and knees. Range of motion of the extremities including shoulders and hips are within functional limits bilaterally. She does have swelling and tenderness of the MTP joints, mainly left foot. Mild tenderness right foot. Neuro: No overt muscle weakness in the upper and lower extremities. Vascular Exam Laboratory studies: Reviewed. Markers of inflammation are normal. CPK is normal. Interestingly, there has been partial B-cell reconstitution. Lab Results Component Value Date WBC 4.4 03/04/2024 HGB 13.1 03/04/2024 HCT 40.3 03/04/2024 MCV 88.4 03/04/2024 PLT 287 03/04/2024 Lab Results Component Value Date CREATININE 0.65 03/04/2024 Lab Results Component Value Date/Time SEDRATE 8 03/04/2024 08:43 AM SEDRATE 3 03/28/2023 01:31 PM SEDRATE 9 04/12/2021 08:40 AM SEDRATE 9 10/01/2020 07:40 AM Lab Results Component Value Date/Time CRP <3.0 03/04/2024 08:43 AM CRP <3.0 10/31/2023 11:49 AM Imaging studies: Most recent hand and foot x-rays were performed in 2020 (no change since 2016) Disease Activity Minto Vasculitis Activity Score (BVAS) for Melly's Granulomatosis (WG) Evaluation: Total BVAS/WG score: 0 ASSESSMENT / PLAN #1 Rheumatoid Arthritis With Rheumatoid Factor Multiple Sites Without Organ Or Systems Involvement (HCC) #2 Polymyositis (HCC) Mrs. Esparza has experienced some worsening of inflammatory joint symptoms with reducing prednisone to 2 mg daily. She is now back on 3 mg daily and has ongoing swelling and tenderness in the MTP joints, predominantly left foot. We discussed options going forward. For now she is comfortable increasing prednisone to 5 mg daily. Longer-term options include restarting methotrexate therapy versus re administering rituximab. Given previous prolonged B-cell depletion with rituximab, and concern for infection risk, we will retainthis as a future option. For now, she will let me know how she does with increasing prednisone. Literature was provided for her to review regarding methotrexate, and she will send me an update via portal in a couple of weeks. She is comfortable with this plan. All questions were addressed. Follow-up in 6 months, or sooner if needed. She is comfortable with this plan, and is welcome to contact me with any concerns in the interim. When she returns in 6 months, we will re-evaluate her mild ILD with PFTs and repeat chest CT. PATIENT EDUCATION Ready to learn, no apparent learning barriers were identified; learning preferences include listening. Explained diagnosis and treatment plan; patient expressed understanding of the content. documented in this encounter Plan of Treatment Upcoming Encounters Date Type Department Care Team (Late st Contact Info) Description 09/06/2024 8:30 AM CDT Office Visit Department of Family Medicine, [facility], in [address] [phone] Karla Resendiz, RYAN, C.N.P., D.N.P. [address] [place] [address] Scheduled Orders Name Type Priority Associated Diagnoses Orde r Schedule CBC with Differential, Blood Lab Routine Rheumatoid Arthritis With Rheumatoid Factor Multiple Sites Without Organ Or Systems Involvement (HCC) Polymyositis (HCC) Expected: 09/10/2024, Expires: 03/11/2025 Sedimentation Rate Lab Routine Rheumatoid Arthritis With Rheumatoid Factor Multiple Sites Without Organ Or Systems Involvement (HCC) Polymyositis (HCC) Expected: 09/10/2024, Expires: 03/11/2025 CRP (C-Reactive Protein) Lab Routine Rheumatoid Arthritis With Rheumatoid Factor Multiple Sites Without Organ Or Systems Involvement (HCC) Polymyositis (HCC) Expected: 09/10/2024, Expires: 03/11/2025 Creatinine with Estimated GFR Lab Routine Rheumatoid Arthritis With Rheumatoid Factor Multiple Sites Without Organ Or Systems Involvement (HCC) Polymyositis (HCC) Expected: 09/10/2024, Expires: 03/11/2025 AST (Aspartate Aminotransferase) Lab Routine Rheumatoid Arthritis With Rheumatoid Factor Multiple Sites Without Organ Or Systems Involvement (HCC) Polymyositis (HCC) Expected: 09/10/2024, Expires: 03/11/2025 CK (Creatine Kinase) Lab Routine Rheumatoid Arthritis With Rheumatoid Factor Multiple Sites Without Organ Or Systems Involvement (HCC) Polymyositis (HCC) Expected: 09/10/2024, Expires: 06/10/2025 CT Chest without IV Contrast Imaging RAD - Routine (most inpatients and all outpatients) Rheumatoid Arthritis With Rheumatoid Factor Multiple Sites Without Organ Or Systems Involvement (HCC) Polymyositis (HCC) Expected: 09/10/2024, Expires: 06/10/2025 Pulmonary Function Tests PFT Routine Rheumatoid Arthritis With Rheumatoid Factor Multiple Sites Without Organ Or Systems Involvement (HCC) Polymyositis (HCC) Expected: 09/10/2024, Expires: 06/10/2025 Scheduled Referrals Name Type Priority Associated Diagnoses Order Schedule Rheumatology office visit (clinic) Outpatient Referral Routine Expected: 09/10/2024, Expires: 06/10/2025 documented as of this encounter Visit Diagnoses Diagnosis Rheumatoid Arthritis With Rheumatoid Factor Multiple Sites Without Organ Or Systems Involvement (HCC)- Primary Polymyositis (HCC) documented in this encounter Additional Health Concerns Assessment Noted Time PHQ-9 Depression Total Score: 6 10/31/20 23 10:21 AM ROLL OR TAPE EDGE MACHINE OPERATOR documented as of this encounter Care Teams Tractor Distributor Relationship Specialty Start Date End Date Karla Resendiz APRN, C.N.P., D.N.P. [address] [place] [phone] PCP - General 05/19/17 documented as of this encounter
--- OUTSIDE RECORDS SUMMARY | 2024-06-18 16:58 | XMS_ITS | Encounter Summary ---
Author Organization [facility] Address [address] [place] [address] Care Team Providers Care Epoxy Fabrication Supervisor Name Role Phone Karla Resendiz APRN, C.N.P., D.N.P. Primary Care Provider Encounter Details Date Type Department Care Team (Late st Contact Info) Description 02/16/2021 Orders Only Department of Family Medicine, [facility], in [place], [place] [address] [place] [address] Lokesh Jordan M.D. [address] [place] [address] Social History Tobacco Use Types Packs/Day Years Used Date Smoking Tobacco: Never Smokeless Tobacco: Never Alcohol Use Standard Drinks/Week Comments Yes 2 (1 standard drink = 0.6 oz pur e alcohol) Humiliation, Afraid, Rape, and Kick questionnair e Answer Date Recorded Within the last year, have y ou been afraid of your partner or ex-partner? No 08/19/2020 Within the last year, have y ou been humiliated or emotionally abused in other ways by your partner or ex-partner? No Within the last year, have y ou been kicked, hit, slapped, or otherwise physically hurt by your partner or ex-partner? No 08/19/2020 Within the last year, have y ou been raped or forced to have any kind of sexual activity by your partner or ex-partner? No 08/19/2020 Social Connection and Isolat ion Panel [NHANES] Answer Date Recorded Frequency of Communication w ith Friends and Family Twice a week 08/20/2019 Frequency of Social Gatherin gs with Friends and Family Once a week 08/20/2019 Attends Judaism Services More than 4 times per year 08/20/2019 Active Member of Clubs or Organizations No 08/20/2019 Attends Club or Organization Meetings Never 08/20/2019 Marital Status 08/20/2019 AUDIT-C Answer Date Recorded Frequency of Alcohol Consumption 2-4 times a mon08/20/2019 Average Number of Drinks 1 or 2 019 Frequency of Binge Drinking Never 11/2018 Overall Financial Resource Strain (CARDIA) Answe r Date Recorded How hard is it for you to pa y for the very basics like food, housing, medical care, and heating? Not hard at all 08/19/2020 PHQ-2 Answer Date Recorded PHQ-2 Score 3 10/05/2020 [facility] of Occupat ional Health - Occupational Stress Questionnaire Answer Date Recorded Feeling of Stress Only a little 08/20/2019 Exercise Vital Sign Answer Date Recorde d On average, how many days pe r week do you engage in moderate to strenuous exercise (like a brisk walk)? 2 days On average, how many minutes do you engage in exercise at this level? Patient declined 08/19/2020 Hunger Vital Sign Answer Date Recorded Worried About Running Out of Food in the Last Ye ar Not on file 08/19/2020 Within the past 12 months, t he food you bought just didn't last and you didn't have money to get more. Never true 08/19/2020 PRAPARE - Transportation Answer Date Re corded Lack of Transportation (Medical) No 08/20/2019 Lack of Transportation (Non-Medical) No 08/20/2019 Depression Answer Date Recor ded PHQ-9 Total Score (max 27) 4 12/11 Nutrition Answer Date Recorded Nutrition: EVOO Fat Source Unknown 01/08 Nutrition: Servings of Fruits/Vegetables per Day Not on file 01/08/2021 Dental Answer Date Recorded Dental: Regular Dentist Unknown 01/08/20 21 Education Answer Date Recorded What is the [...] CDT Office Visit Department of Family Medicine, [facility], in [address] [address] Karla Resendiz APRN, C.N.P., D.N.P. [address] [place] [phone] documented as of this encounter Visit Diagnoses Not on filedocumented in this encounter Additional Health Concerns Infection Onset Date Last Indicated Resolved Time COVID19 Pending 07/19/2021 07/19/2021 07/20/2021 1 :33 PM CDT COVID19 Pending 08/06/2021 08/06/2021 08/07/2021 3 :06 PM CDT COVID19 12/03/2022 12/03/2022 12/23/2022 5:17 AM FRUIT GRADING SUPERVISOR COVID19 Pending 02/13/2023 02/13/2023 02/13/2023 1 :57 PM CDT Assessment Noted Time PHQ-9 Depression Total Score: 4 12/11/19 21 9:23 AM FRUIT GRADING SUPERVISOR documented as of this encounter Care Teams Epoxy Fabrication Supervisor Relationship Specialty Start Date End Date Karla Resendiz APRN, C.N.P., D.N.P. [address] [place] [phone] PCP - General 05/19/17 documented as of this encounter
--- OUTSIDE RECORDS SUMMARY | 2024-06-18 16:58 | XMS_ITS | Encounter Summary ---
Author Organization [facility] Address [address] [place] [address] Care Team Providers Care Satellite Instruction Facilitator Name Role Phone Karla Resendiz APRN, C.N.P., D.N.P. Primary Care Provider Encounter Details Date Type Department Care Team (Late st Contact Info) Description 09/22/2017 Historical Ophthalmology [facility] Venkat Chery M.D. [address] [place] [phone] Social History Tobacco Use Types Packs/Day Years Used Date Smoking Tobacco: Never Sex and Gender Information Value Date Recorded Sex Assigned at Female 07/17/2018 3:01 PM CDT Gender Identity Female 07/17/2018 3:01 PM CDT Sexual Orientation Straight 07/17/2018 3: 01 PM CDT documented as of this encounter Progress Notes * Venkat Chery M.D. - 09/22/2017 10:25 AM CDT Eye General CHIEF COMPLAINT Headaches HISTORY OF PRESENT ILLNESS Headache; both eyes; x several days; constantly; symptoms reported at level of 4/10.Blurred vision;right eye; x several days; on and off; symptoms are moderate.Light flashes accompanied with floaters; both eyes; x several days; on and off. KDC: No history of headaches or migraines. 10 days ago started with new onset headache. The headaches have been intermittent over the last 10 days. Has stable floaters in both eyes, no new floaters. She has seen some flashing associated with the headaches. 31-Oct saw an linux network administrator who saw disc edema. Blurry vision in the right eye intermittently; she is able to blink and squeeze her eyes shut and the vision will improve. No pain with EOM; perhaps some diplopia but patient is not sure. No surgery on the eyes. IMPRESSION / REPORT / PLAN The following tests have been completed and need interpretation. OCT nerve #1 Headache #2 Rheumatoid arthritis #3 Polymyositis, on rituximab and prednisone #4 Hypothyroidism - No disc edema present on exam; color plates full - Disc edema can lag behind symptoms, so plan to follow up with patient in 3 weeks with repeat OCT - Do not believe MRI is necessary at this time but will defer to neurology 21-Sep-2017 Testing: - LP: 1 cell, 52 protein; opening pressure 14.5 - CT/CTA/CTV: No acute intracranial abnormality; Normal CTA of the head and neck; Normal head CTV 22-Sep-2017 Testing: - OCT nerve: average rNFL thickness 100/101; GC thickness 86/86. LEFT: membrane overlying part of nerve Plan: - RTC 3 weeks with repeat OCT nerve - Advised patient to keep neurology follow up, as we will defer headache management to them Seen with MMR DIAGNOSIS #1 Headache #2 Rheumatoid arthritis #3 Polymyositis, on rituximab and prednisone #4 Hypothyroidism CDM Reports - EYEGEN Id: [id number] Status: Fnl documented in this encounter Plan of Treatment Upcoming Encounters Date Type Department Care Team (Late st Contact Info) Description 09/06/2024 8:30 AM CDT Office Visit Department of Family Medicine, [facility], in [place] [address] [place] [address] Karla Resendiz, RYAN, C.N.P., D.N.P. [address] [place] [address] documented as of this encounter Visit Diagnoses Not on filedocumented in this encounter Additional Health Concerns Infection Onset Date Last Indicated Resolved Time COVID19 Pending 06/30/2020 06/30/2020 07/01/2020 2 :04 PM CDT COVID19 Pending 07/19/2021 07/19/2021 07/20/2021 1 :33 PM CDT COVID19 Pending 08/06/2021 08/06/2021 08/07/2021 3 :06 PM CDT COVID19 12/03/2022 12/03/2022 12/23/2022 5:17 AM ELEMENTARY ART TEACHER COVID19 Pending 02/13/2023 02/13/2023 02/13/2023 1 :57 PM CDT Assessment Noted Time PHQ-9 Depression Total Score: 10 012 1:30 PM CDT documented as of this encounter Care Teams Satellite Instruction Facilitator Relationship Specialty Start Date End Date Karla Resendiz, RYAN, C.N.P., D.N.P. [address] [place] [address] PCP - General 05/19/17 documented as of this encounter
--- OUTSIDE RECORDS SUMMARY | 2024-06-18 16:58 | XMS_ITS | Encounter Summary ---
Author Organization [facility] Address [address] [place] [address] Care Team Providers Care Gear Cutting Machine Set Up Operator Name Role Phone Karla Resendiz APRN, C.N.P., D.N.P. Primary Care Provider Encounter Details Date Type Department Care Team (Late st Contact Info) Description 11/14/2012 Historical Ophthalmology [facility] Jann Garcia M.D. [address] [place] [address] Social History Tobacco Use Types Packs/Day Years Used Date Smoking Tobacco: Never Assessed Sex and Gender Information Value Date Recorded Sex Assigned at Female 07/17/2018 3:01 PM CDT Gender Identity Female 07/17/2018 3:01 PM CDT Sexual Orientation Straight 07/17/2018 3: 01 PM CDT documented as of this encounter Progress Notes * Jann Garcia M.D. - 11/14/2012 2:29 PM CST Eye General CHIEF COMPLAINT Recheck blurred vision. HISTORY OF PRESENT ILLNESS Blurred vision; sometimes cant see if bright enough; contrast; stayed the same. Reading glasses stronger. No distance glasses. No eye pain; has headaches; neck problems; Sees a lighting spot left eye; come and goes; stayed about the same. No glare or halos around lights. Does not like to drive at night. HEG: Pt complains of decreased contrast, unsure if lighting and colors make a it more difficult to make out fine details. She has headaches in the frontal region alleviated with tylenol. SSK: The history is as recorded above. Overall she feels she is still able to function well but sheis aware that seeing in poor lighting is more difficult and looking at low cotrast things is more difficult. No pain or discomfort. She has been noted to have a cataract in each eye in the past. IMPRESSION / REPORT / PLAN #1 Posterior Subcapsular Cataract both eyes Pt doing well with current vision. Reasonable to monitor. Reviewed the symptoms of worsening cataracts for which the patient should return. SSK: I agree with the examination and plan as outlined by Dr. Goldman. Reviewed the symptoms of worsening cataracts for which the patient should return. #2 Myopia #3 Presbyopia. #4 Hypoglobus, left eye, mild Stable. CT orbits 04/26' revealed mild enlargement of left lateral rectus muscle. Slight enlargementof left lacrimal gland RTC q 1-2 years DIAGNOSIS #1 Posterior Subcapsular Cataract both eyes #2 Myopia #3 Presbyopia. #4 Hypoglobus, left eye, mild CDM Reports - EYEGEN Id: [id number] Status: Fnl documented in this encounter Plan of Treatment Upcoming Encounters Date Type Department Care Team (Late st Contact Info) Description 09/06/2024 8:30 AM CDT Office Visit Department of Family Medicine, [facility], in [address] [address] Karla Resendiz, RYAN, C.N.P., D.N.P. [address] [place] [phone] documented as of this encounter Visit Diagnoses Not on filedocumented in this encounter Additional Health Concerns Infection Onset Date Last Indicated Resolved Time COVID19 Pending 06/30/2020 06/30/2020 07/01/2020 2 :04 PM CDT COVID19 Pending 07/19/2021 07/19/2021 07/20/2021 1 :33 PM CDT COVID19 Pending 08/06/2021 08/06/202108/07/2021 3 :06 PM CDT COVID19 12/03/2022 12/03/2022 12/23/2022 5:17 AM PSYCHOSOCIAL REHABILITATION COUNSELOR COVID19 Pending 02/13/2023 02/13/2023 02/13/2023 1 :57 PM CDT Assessment Noted Time PHQ-9 Depression Total Score: 10 07/17/ 012 1:30 PM CDT documented as of this encounter Care Teams Gear Cutting Machine Set Up Operator Relationship Specialty Start Date End Date Karla Resendiz APRN, C.N.P., D.N.P. [address] [place] [address] PCP - General 05/19/17 documented as of this encounter
--- OUTSIDE RECORDS SUMMARY | 2024-06-18 16:58 | XMS_ITS | Encounter Summary ---
Author Organization [facility] Address [address] [place] [address] Care Team Providers Care Chha Name Role Phone Karla Resendiz APRN, C.N.P., D.N.P. Primary Care Provider Encounter Details Date Type Department Care Team (Late st Contact Info) Description 10/09/2014 Historical Ophthalmology RST OPH Jann Garcia M.D. [address] [place] [phone] Social History Tobacco Use Types Packs/Day Years Used Date Smoking Tobacco: Never Assessed Sex and Gender Information Value Date Recorded Sex Assigned at Female 07/17/2018 3:01 PM CDT Gender Identity Female 07/17/2018 3:01 PM CDT Sexual Orientation Straight 07/17/2018 3: 01 PM CDT documented as of this encounter Progress Notes * Jann Garcia M.D. - 10/09/2014 8:20 AM CST Eye General CHIEF COMPLAINT decrease vision HISTORY OF PRESENT ILLNESS Decrease vision distance and up close x 1 year. She wears over the counter readers which usually clear up her vision. Intermittent vertigo over the past year. Patient notices a decrease in vision driving. History of dryness both eyes. She uses refresh as needed. She doesn't use it as much as she feels she should. Intermittent flashes of light when she closes both eyes x several years. She only notices this at the most once a month. It only lasts for seconds to 1 minute. Patient denies floaters,ocular pain and diplopia. SSK: The history is as recorded above. She has been bothered by her vision now for more than two years. IMPRESSION / REPORT / PLAN #1 Posterior Subcapsular Cataract both eyes She does have surprisingly good vision given the amount and location of the cataracts. She is experiencing more blur and glare symptoms and notes difficulty seeing in conditions of low contrast such as on a cloudy day. We discussed this. She feels she is still functioning adequately so we will continue to follow the cataracts. Reviewed the symptoms of worsening cataracts for which the patient should return. #2 Dry eye #3 Presbyopia DIAGNOSIS #1 Posterior Subcapsular Cataract both eyes #2 Dry eye #3 Presbyopia CDM Reports - EYEGEN Id: [id number] Status: Fnl documented in this encounter Plan of Treatment Upcoming Encounters Date Type Department Care Team (Late st Contact Info) Description 09/06/2024 8:30 AM CDT Office Visit Department of Family Medicine, [facility], in [address] [phone] Karla Resendiz, RYAN, C.N.P., D.N.P. [address] [place] [address] documented as of this encounter Visit Diagnoses Not on filedocumented in this encounter Additional Health Concerns Infection Onset Date Last Indicated Resolved Time COVID19 Pending 06/30/2020 06/30/2020 07/01/2020 2 :04 PM CDT COVID19 Pending 07/19/2021 07/19/2021 07/20/2021 1 :33 PM CDT COVID19 Pending 08/06/2021 08/06/2021 08/07/2021 3 :06 PM CDT COVID19 12/03/2022 12/03/2022 12/23/2022 5:17 AM VETERINARY TECHNOLOGIST COVID19 Pending 02/13/2023 02/13/2023 02/13/2023 1 :57 PM CDT Assessment Noted Time PHQ-9 Depression Total Score: 10 012 1:30 PM CDT documented as of this encounter Care Teams Chha Relationship Specialty Start Date End Date Karla Resendiz APRN, C.N.P., D.N.P. [address] [place] [address] PCP - General 05/19/17 documented as of this encounter
--- OUTSIDE RECORDS SUMMARY | 2024-06-18 16:58 | XMS_ITS | Encounter Summary ---
Author Organization [facility] Address [address] [place] [address] Care Team Providers Care Blunger Machine Operator Name Role Phone Karla Resendiz APRN, C.N.P., D.N.P. Primary Care Provider Encounter Details Date Type Department Care Team (Late st Contact Info) Description 10/10/2017 Historical Ophthalmology RST OPH Venkat Chery M.D. [address] [place] [phone] Social History Tobacco Use Types Packs/Day Years Used Date Smoking Tobacco: Never Sex and Gender Information Value Date Recorded Sex Assigned at Female 07/17/2018 3:01 PM CDT Gender Identity Female 07/17/2018 3:01 PM CDT Sexual Orientation Straight 07/17/2018 3: 01 PM CDT documented as of this encounter Progress Notes * Venkat Chery M.D. - 10/10/2017 7:12 AM CST Eye General CHIEF COMPLAINT Follow up. HISTORY OF PRESENT ILLNESS Patient states that her vision is doing much better, she states that she did have an episode of flashing lights; both eyes; x 1 week; episode lasting a couple minutes, she states that she thought shewas going to have another migraine. Patient denies ocular pain. Patient denies any further concernsat this time. KDC: Headaches have improved; had an episode of 1min of bilateral flashing lights. IMPRESSION / REPORT / PLAN #1 Headache #2 Rheumatoid arthritis #3 Polymyositis, on rituximab and prednisone #4 Hypothyroidism - No disc edema present on exam or repeat OCT; color plates full 10-Oct-2017: significant improvement in symptoms 21-Sep-2017 Testing: - LP: 1 cell, 52 protein; opening pressure 14.5 - CT/CTA/CTV: No acute intracranial abnormality; Normal CTA of the head and neck; Normal head CTV 22-Sep-2017 Testing: - OCT nerve: average rNFL thickness 100/101; GC thickness 86/86. LEFT: membrane overlying part of nerve [id number]: - OCT nerve: avg rNFL 101/100, GC 88/87 #5 Cataracts, both eyes - Visually significant; patient will consider surgery and let us know if she wants a referral Plan: - RTC prn with new or worsening symptoms DIAGNOSIS #1 Headache #2 Rheumatoid arthritis #3 Polymyositis, on rituximab and prednisone #4 Hypothyroidism #5 Cataracts, both eyes CDM Reports - EYEGEN Id: [id number] Status: Fnl documented in this encounter Plan of Treatment Upcoming Encounters Date Type Department Care Team (Late st Contact Info) Description 09/06/2024 8:30 AM CDT Office Visit Department of Family Medicine, [facility], in [address] [phone] Karla Resendiz, RYAN, C.N.P., D.N.P. [address] [place] [phone] documented as of this encounter Visit Diagnoses Not on filedocumented in this encounter Additional Health Concerns Infection Onset Date Last Indicated Resolved Time COVID19 Pending 06/30/2020 06/30/2020 07/01/2020 2 :04 PM CDT COVID19 Pending 07/19/2021 07/19/2021 07/20/2021 1 :33 PM CDT COVID19 Pending 08/06/2021 08/06/2021 08/07/2021 3 :06 PM CDT COVID19 12/03/2022 12/03/202212/2312/23/2022 5:17 AM EBD TEACHER COVID19 Pending 02/13/2023 02/13/2023 02/13/2023 1 :57 PM CDT Assessment Noted Time PHQ-9 Depression Total Score: 10 012 1:30 PM CDT documented as of this encounter Care Teams Blunger Machine Operator Relationship Specialty Start Date End Date aKrla Resendiz APRN, C.N.P., D.N.P. [address] [place] [phone] PCP - General 05/19/17 documented as of this encounter
--- OUTSIDE RECORDS SUMMARY | 2024-06-18 16:59 | XMS_ITS | Encounter Summary ---
Author Organization [facility] Address [address] [place] [address] Care Team Providers Care General Manager Road Production Name Role Phone Karla Resendiz APRN, C.N.P., D.N.P. Primary Care Provider Encounter Details Date Type Department Care Team (Late st Contact Info) Description 09/01/2006 Historical Ophthalmology RST OPH Mary Miranda M.D. [address] [place] [phone] Social History Tobacco Use Types Packs/Day Years Used Date Smoking Tobacco: Never Assessed Sex and Gender Information Value Date Recorded Sex Assigned at Female 07/17/2018 3:01 PM CDT Gender Identity Female 07/17/2018 3:01 PM CDT Sexual Orientation Straight 07/17/2018 3: 01 PM CDT documented as of this encounter Progress Notes * Mary Miranda M.D. - 09/01/2006 12:00 AM CDT Eye General CHIEF COMPLAINT white shaky line HISTORY OF PRESENT ILLNESS 5 years since last eye exam. Patient notes white shaky line, (on and off) in the outer vision, x 1 year which is becoming more frequent in the last 1-2 months. Twitching, both eyes, x 1-2 weeks. Patient notes slight soreness to the touch, (outer part of the eye) x 3-4 months. Dry eyes, x 4-5 months, does not use any form of moisture drops. ASK: Notices lines in the both eyes, white lines or C shaped lines that are intermittent. Has noticed these over the past 1 year but seem more frequent. Still sees these lines when she closes her eyes. Sees those same lines with her eyes closed. IMPRESSION / REPORT / PLAN #1 Vitreous syneresis The patient does have vitreous syneresis on exam but I cannot explain the fact that the patient notices these wavy lines even with her eyes closed. Floaters should normally not be present with the eyes closed. 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 Informed the patient of the symptoms of retinal detachment and instructed the patient to be seen assoon as possible if the patient notices these symptoms. Could consider referall to Neurology. Discussed patient's case with Dr. Charles. Gave patient Rx#1 but recommended using over the counter reading glasses if she starts to notice difficultly with reading. DIAGNOSIS #1 Vitreous syneresis [facility] Id: [id number] Status: Fnl documented in this encounter Plan of Treatment Upcoming Encounters Date Type Department Care Team (Late st Contact Info) Description 09/06/2024 8:30 AM CDT Office Visit Department of Family Medicine, [facility], in [address] [phone] Karla Resendiz, RYAN, C.N.P., D.N.P. [address] [place] [phone] documented as of this encounter Visit Diagnoses Not on filedocumented in this encounter Additional Health Concerns Infection Onset Date Last Indicated Resolved Time COVID19 Pending 06/30/2020 06/30/2020 07/01/2020 2 :04 PM CDT COVID19 Pending 07/19/2021 07/19/2021 07/20/2021 1 :33 PM CDT COVID19 Pending 08/06/2021 08/06/2021 08/07/2021 3 :06 PM CDT COVID19 12/03/2022 12/03/2022 12/23/2022 5:17 AM PHARMACY TECH CUSTOMER SERVICE COVID19 Pending 02/13/2023 02/13/2023 02/13/2023 1 :57 PM CDT documented as of this encounter Care Teams General Manager Road Production Relationship Specialty Start Date End Date Karla Resendiz APRN, C.N.P., D.N.P. [address] [place] [address] PCP - General 05/19/17 documented as of this encounter
--- OUTSIDE RECORDS SUMMARY | 2024-06-18 16:59 | XMS_ITS | Encounter Summary ---
Author Organization [facility] Address [address] [place] [address] Care Team Providers Care Stamping Die Maker Name Role Phone Karla Resendiz APRN, C.N.P., D.N.P. Primary Care Provider Encounter Details Date Type Department Care Team (Late st Contact Info) Description 05/15/2008 Historical Ophthalmology RST OPH Nyasia Castellano M.D., Ph.D. Social History Tobacco Use Types Packs/Day Years Used Date Smoking Tobacco: Never Assessed Sex and Gender Information Value Date Recorded Sex Assigned at Female 07/17/2018 3:01 PM CDT Gender Identity Female 07/17/2018 3:01 PM CDT Sexual Orientation Straight 07/17/2018 3: 01 PM CDT documented as of this encounter Progress Notes * Nyasia Castellano M.D., Ph.D. - 05/15/2008 7:20 AM CDT Eye General HISTORY OF PRESENT ILLNESS Patient has been on Prednisone for 1 1/2 years for Rheumatoid Arthritis and Polymyosiits. She is currently on 30 mg of Prednisone. Throbbing and twitching, right eye, x 1 months, comes and goes. Blurred vision, both eyes, x 6 months, constantly. Symptoms occur primarily when reading. She notes zig zag white lines when she is on lower doses of Prednisone, she never notices them when on higher doses. Denies pain, flashes, floaters and diplopia. IMPRESSION / REPORT / PLAN #1 Proptosis, left globe with inferodisplacement Not noted before. On synthroid for hypothyroidism, no hx of graves but see family hx above obtain CT orbits to assess for orbital mass or muscle enlargement rtn after tests #2 Posterior subcapsular cataracts, both eyes Discussed. Probably steroid induced Vision is still pretty good. Observe. #3 Presbyopia Recommend trying OTC readers, ~+1.25 DIAGNOSIS #1 Proptosis, left globe with inferodisplacement #2 Posterior subcapsular cataracts, both eyes #3 Presbyopia CDM Reports - EYEGEN Id: [id number] Status: Fnl documented in this encounter Plan of Treatment Upcoming Encounters Date Type Department Care Team (Late st Contact Info) Description 09/06/2024 8:30 AM CDT Office Visit Department of Family Medicine, [facility], in [address] [phone] Karla Resendiz APRN, C.N.P., D.N.P. [address] [place] [phone] documented as of this encounter Visit Diagnoses Not on filedocumented in this encounter Additional Health Concerns Infection Onset Date Last Indicated Resolved Time COVID19 Pending 06/30/2020 06/30/2020 07/01/2020 2 :04 PM CDT COVID19 Pending 07/19/2021 07/19/2021 07/20/2021 1 :33 PM CDT COVID19 Pending 08/06/2021 08/06/2021 08/07/2021 3 :06 PM CDT COVID19 12/03/2022 12/03/2022 12/23/2022 5:17 AM MEDICAL RECORDS COORDINATOR COVID19 Pending 02/13/2023 02/13/2023 02/13/2023 1 :57 PM CDT documented as of this encounter Care Teams Stamping Die Maker Relationship Specialty Start Date End Date Karla Resendiz APRN, C.N.P., D.N.P. [address] [place] [phone] PCP - General 05/19/17 documented as of this encounter
--- OUTSIDE RECORDS SUMMARY | 2024-06-18 16:59 | XMS_ITS | Encounter Summary ---
Author Organization [facility] Address [address] [place] [address] Care Team Providers Care Video Specialist Name Role Phone Karla Resendiz APRN, C.N.P., D.N.P. Primary Care Provider Encounter Details Date Type Department Care Team (Late st Contact Info) Description 11/07/2006 Historical Ophthalmology RST OPH Mary Miranda M.D. [address] [place] [phone] Social History Tobacco Use Types Packs/Day Years Used Date Smoking Tobacco: Never Assessed Sex and Gender Information Value Date Recorded Sex Assigned at Female 07/17/2018 3:01 PM CDT Gender Identity Female 07/17/2018 3:01 PM CDT Sexual Orientation Straight 07/17/2018 3: 01 PM CDT documented as of this encounter Progress Notes * Mary Miranda M.D. - 11/07/2006 10:06 AM CST Eye General CHIEF COMPLAINT Right eye large driscoll area this morning while driving HISTORY OF PRESENT ILLNESS Could only see out edges. Lasted 2-3 miles and vision started coming back, at that time saw some stars. No pain. No floaters noted before. Sees squiggly things at times. No blurred vision now. ASK: While she was driving this morning, right eye had a cloud growing over her vision, like a dark sunshine. Tried blinking but did not help. Could only see dark driscoll with outer edges of light. Then noticed flicks of light as vision cleared. Currently, right eye vision has return to normal. Symptomslasted about 5 minutes. Closed each eye to confirm the symptoms were in the right eye only. Left eye has had no change in vision. No headaches. Centrally her vision was dark but could see outer edges(vision was not completely lost in right eye). Has had headaches before in the past - ? migraines. Identifies with migraine scintillating scotoma photos. IMPRESSION / REPORT / PLAN #1 Transient visual disturbance, right eye Unclear if patient had a ophthalmic migraine although symptoms were in right eye only. Exam is within normal limits now and symptoms have completely resolved. Recommended ESR, CRP, and CBC (to rule out temporal arteritis). No symptoms of temporal arteritis on exam or in review of symptoms and would be very unusual given patient's young age. Recommended vasculitis panel to rule out vasculitic cause for symptoms. Also recommended carotid ultrasound. If symptoms return, consider Neurology consult. Will call patient if any of the above tests are abnormal. Instructed patient to contact us if her symptoms return or for other vision concerns. Addendum: Normal ESR, CRP, and carotid ultrasound. CBC shows slight leukocytosis and has been previously noted (but lower than in 08/2006). Vasculitis panel negative. DIAGNOSIS #1 Transient visual disturbance, right eye CDM Reports - EYEGEN Id: [id number] Status: Fnl documented in this encounter Plan of Treatment Upcoming Encounters Date Type Department Care Team (Late st Contact Info) Description 09/06/2024 8:30 AM CDT Office Visit Department of Family Medicine, [facility], in [place], [place] [address] [place] [address] Karla Resendiz, RYAN, C.N.P., D.N.P. [address] [place] [address] documented as of this encounter Visit Diagnoses Not on filedocumented in this encounter Additional Health Concerns Infection Onset Date Last Indicated Resolved Time COVID19 Pending 06/30/2020 06/30/2020 07/01/2020 2 :04 PM CDT COVID19 Pending 07/19/2021 07/19/2021 07/20/2021 1 :33 PM CDT COVID19 Pending 08/06/2021 08/06/2021 08/07/2021 3 :06 PM CDT COVID19 12/03/2022 12/03/2022 12/23/2022 5:17 AM MARBLE CUTTER COVID19 Pending 02/13/2023 02/13/2023 02/13/2023 1 :57 PM CDT documented as of this encounter Care Teams Video Specialist Relationship Specialty Start Date End Date Karla Resendiz APRN, C.N.P., D.N.P. [address] [place] [phone] PCP - General 05/19/17 documented as of this encounter
--- OUTSIDE RECORDS SUMMARY | 2024-06-18 16:59 | XMS_ITS | Clinical Summary ---
Author Organization [facility] Address [place], [place] [address] Care Team Providers Care Bar Manager Name Role Phone Karla Resendiz NP Primary Care Provider [phone]- [phone] Allergies Active Allergy Reactions Criticality Noted Date Comments Adhesive Rash Medium 06/29/2017 Tramadol Vomiting,Dizziness,Nausea And Vomiting Medium 01/18/2018 Medications Medication Sig Dispensed Refills Start Date End Date Status cetirizine (ZYRTEC) 10 mg tablet Take 1 tablet by mouth once daily. 0 01/08/2013 Active fluticasone, 50 mcg per actuation, nasal (FLONASE) spray Inhale 1 [place] into both nostrils once daily. 1 Bottle 0 01/08/2013 Active levothyroxine (SYNTHROID) 100 mcg tablet Take 1 tablet by mouth before breakfast. 02/26/2019 Active riTUXimab (RITUXAN) 10 mg/mL injection 1 infusion PRN 0 02/26/2019 Ac tive vitamin B complex (B COMPLEX 1 ORAL) Take by mouth. Activ e ALPRAZolam (XANAX) 0.25 mg tablet Take 0.25 mg by mouth. 07/24/2020 Active ascorbic acid, vitamin C, (VITAMIN C) 1,000 mg tablet Take 1,000 mg by mouth. Active buPROPion (WELLBUTRIN XL) 150 mg Extended-Release tablet 08/19/2020 Active calcium carbonate (OS-EDIE 500) 500 mg calcium (1,250 mg) tablet Take by mouth. Active Docosahexanoic Acid-Eicosapent 120-180 mg cap Take by mouth. Active docusate (COLACE) 100 mg capsule Take 100 mg by mouth. Active gabapentin (NEURONTIN) 100 mg capsule Take 100 mg by mouth. 08/21/2020 Active Lactobacillus rhamnosus GG (CULTURELLE) 15 billion cell capsule Take 1 capsule by mouth. Active Magnesium 200 mg tab Take 400 mg by mouth. Active sennosides-docusate, 8.6-50 mg, (SENOKOT S) 8.6-50 mg tablet Take 1-2 Tabs by mouth. 07/16/2020 Active Vitamin A Palmitate 10,000 unit tab Take 1 Tab by mouth. Active predniSONE (DELTASONE) 10 mg tablet Take 10 mg by mouth. Active predniSONE (DELTASONE) 5 mg tablet Take 5 mg by mouth. Active DULoxetine (CYMBALTA) 30 mg Delayed-release capsule 1 tab daily for 2 weeks, then 2 tabs daily until recheck. 10/12/2020 Active meloxicam 15 mg tablet Take 15 mg by mouth. 10/05/2020 Active Active Problems Problem Noted Date Diagnosed Date DDD (degenerative disc disease), cervical 2019 Rheumatoid arthritis, seropositive 09/28/2020 Immunizations Name Administration Dates Next Due Influenza A (H1N1), Inactivated 11/03/2009 Influenza Virus, Unspecified 07/29/2019, 09/05/2018,08/05/2016,2014,08/19/2014 Influenza, IIV3 (Age 6-35 mos) 7,09/10/2013,08/30/2012,2010,09/29/2010,11/03/2009 Influenza, IIV3 (Age >=3 years) 11/10/2006 Influenza, IIV4 08/28/2020,08/05/2016 Influenza, RIV3 (Age =>18 Years) 09/10/2018 Pneumococcal Poly,23-Valent (Pneumovax) 08/21/2019 Tdap 12/14/2012 Tuberculin Skin Test, Unspecified 07/31/2006 Family History Medical History Relation Name Comments Cancer-prostate Maternal Grandfather Cancer-prostate Maternal Uncle 1 Cancer-prostate Maternal Uncle 2 Kidney cancer Maternal Uncle 3 Lung cancer Maternal Uncle 4 Lung cancer Mother Cancer Paternal Uncle 1 pancreatic cancer Stomach cancer Paternal Uncle 2 Brain cancer Paternal Uncle 3 Cancer-breast Sister 1 Ana Cancer-breast Sister 2 Telma Cancer-colon No Family History Cancer-ovarian No Family History Relation Name Status Comments Maternal Grandfather Maternal Uncle 1 Maternal Uncle 2 Maternal Uncle 3 Maternal Uncle 4 Mother Paternal Uncle 1 Paternal Uncle 2 Paternal Uncle 3 Sister 1 Ana Alive Sister 2 Telma Alive Social History Tobacco Use Types Packs/Day Years Used Date Smoking Tobacco: Never Smokeless Tobacco: Never Tobacco Cessation:Counseling Given: Yes Alcohol Use Standard Drinks/Week Comments Not Currently 0 (1 standard drink = 0.6 oz pur e alcohol) occasional PHQ-2 Answer Date Recorded PHQ-2 TOTAL SCORE 2 10/06/2020 Social Connections Answer Date Recorded Frequency of Communication with Friends and Fami ly Not on file 11/11/2021 Financial Resource Strain Answer Date R ecorded Difficulty of Paying Living Expenses Not on file 11/11/2021 Difficulty of Paying Living Expenses Not on file 11/11/2021 Sex and Gender Information Value Date Recorded Sex Assigned at Not on file Gender Identity Not on file Sexual Orientation Not on file Obstetrics History Last Filed Vital Signs Vital Sign Reading Time Taken Comments Blood Pressure 100/70 11/02/2020 2:00 PM RESPIRATORY MANAGER Pulse 97 11/02/2020 2:00 PM RESPIRATORY MANAGER Temperature 36.8 ??C (98.3 ??F) 09/28/2020 2:15 PM CS T Respiratory Rate 16 02/26/2019 10:18 AM CDT Oxygen Saturation 97% 09/28/2020 2:15 PM RESPIRATORY MANAGER Inhaled Oxygen Concentration - - Weight 62.1 kg (137 lb) 11/02/2020 2:00 PM RESPIRATORY MANAGER Height 171.2 cm (5' 7.4) 09/28/2020 2:15 PM RESPIRATORY MANAGER Body Mass Index 21.2 09/28/2020 2:15 PM RESPIRATORY MANAGER Plan of Treatment Health Maintenance Due Date Last Done Comments HIV for age 15-65 02/12/1980 Hepatitis C screening for age 18-79 1983 Pap test for age 21-65 1986 Colonoscopy through age 75 2010 Lipids for age 45-75 2010 Zoster (shingles) series for age 50+ (1 of 2) 2015 Mammogram for age 45-75 04/03/2016 04/03/20 15, 02/19/2014, 12/06/2012, Additional history exists BMI (ht and wt on same day) for age 18+ 09/28/2021 09/28/2020, 02/26/2019 Depression screening for age 12+ 10/06/2021 10/06/2020 Tetanus booster 12/14/2022 12/14/2012 COVID-19 vaccine series ( season) 2023 07/22/2021, 02/27/2021, 02/06/2021 Influenza for age 50-64 07/21/2024 08/28/20 20, 07/29/2019, 09/10/2018, Additional history exists Tdap Completed 12/14/2012 Pneumococcal series for age 6-64 Aged Out 08/21/2019 No longer eligible based on patient's age to complete this topic Procedures Procedure Name Priority Date/Time Associated Diagnosis Comments XR MAMMO ANMOL BILAT SCREEN Routine 04/03/2015 11:01 AM CDT Other screening mammogram from Last 3 Months or Most Recently Relevant to Health Maintenance Results * XR MAMMO ANMOL SCREEN BILAT (04/03/2015 11:01 AM CDT) Anatomical Region Laterality Modality BREASTS, Breast Left, Breast Right Bilateral Mammography Impressions 04/03/2015 1:49 PM CDT ??There is no radiographic evidence for malignancy. ??Recommend annual mammograms. A lay language report of this examination will be provided to the patient. MAMMOGRAM ASSESSMENT: ??ACR 1 Negative Narrative 04/03/2015 1:49 PM CDT XR MAMMO ANMOL SCREEN BILAT [[id number]] CLINICAL HISTORY: ??This is an asymptomatic 50 y.o. patient. INDICATION FOR EXAM: Mammogram Screening. TECHNIQUE: CC & MLO views were obtained. ??This digital study was evaluated with the assistance of Computer-Aided Detection. Breast Tomosynthesis was used in interpretation. COMPARISON FILM: Yes 02/19/14 12/06/12 FINDINGS: ??Mammographically, the breast tissue is heterogeneously dense, which could obscure detection of small masses. There are no dominant masses, suspicious micro calcifications or areas of architectural distortion. Procedure Note Matias Koo MD - 04/03/2015 XR MAMMO ANMOL SCREEN BILAT [[id number]] CLINICAL HISTORY: This is an asymptomatic 50 y.o. patient. INDICATION FOR EXAM: Mammogram Screening. TECHNIQUE: CC & MLO views were obtained. This digital study was evaluatedwith the assistance of Computer-Aided Detection. Breast Tomosynthesis wasused in interpretation. COMPARISON FILM: Yes 02/19/14 12/06/12 FINDINGS: Mammographically, the breast tissue is heterogeneously dense,which could obscure detection of small masses. There are no dominantmasses, suspicious micro calcifications or areas of architecturaldistortion. IMPRESSION: There is no radiographic evidence for malignancy. Recommendannual mammograms. A lay language report of this examination will be provided to the patient. MAMMOGRAM ASSESSMENT: ACR 1 Negative Selina Heath MAMMO from Last 3 Months or Most Recently Relevant to Health Maintenance Care Teams Bar Manager Relationship Specialty Start Date End Date Karla Resendiz NP PCP - General Nurse Practitioner 01/25/19
--- OUTSIDE RECORDS SUMMARY | 2024-06-18 16:59 | XMS_ITS | Encounter Summary ---
Author Organization [facility] Address [address] [place] [address] Care Team Providers Care Editorial Clerk Name Role Phone Karla Resendiz APRN, C.N.P., D.N.P. Primary Care Provider Encounter Details Date Type Department Care Team (Late st Contact Info) Description 10/21/2008 Historical Ophthalmology [facility] Marivel Gray M.D. [address] [place] [address] Social History Tobacco Use Types Packs/Day Years Used Date Smoking Tobacco: Never Assessed Sex and Gender Information Value Date Recorded Sex Assigned at Female 07/17/2018 3:01 PM CDT Gender Identity Female 07/17/2018 3:01 PM CDT Sexual Orientation Straight 07/17/2018 3: 01 PM CDT documented as of this encounter Progress Notes * Marivel Gray M.D. - 10/21/2008 2:21 PM CST Eye General CHIEF COMPLAINT Occasional blurred vision; decreased night vision; pain in left eye HISTORY OF PRESENT ILLNESS The patient describes pain in left eye for the past 6 months, which is occasional, moderate. She has this pain ~2 times per month and the pain last ~ 5 minutes. She rates this pain at a level of 4/10. She indicates decreased vision when driving at night or in very bright conditions. She has occasional zigzag white lines in both eyes. Denies flashes, floaters and diplopia. IMPRESSION / REPORT / PLAN #1 Proptosis, left eye, mild, stable observe #2 Hypoglobus, left eye, mild, stable observe CT orbits 04/26' reviewed: mild enlargement of left lateral rectus muscle. Slight enlargement of left lacrimal gland but nothing incredibly obvious. Plan: observe. repeat scan if changes noted #3 Cataract, both eyes. still functioning well Plan: observe. #4 Dry eye symptoms Use artificial tears prn recheck 1 year DIAGNOSIS #1 Proptosis, left eye, mild, stable #2 Hypoglobus, left eye, mild, stable #3 Cataract, both eyes. #4 Dry eye symptoms CDM Reports - EYEGEN Id: [id number] Status: Fnl documented in this encounter Plan of Treatment Upcoming Encounters Date Type Department Care Team (Late st Contact Info) Description 09/06/2024 8:30 AM CDT Office Visit Department of Family Medicine, [facility], in [address] [address] Karla Resendiz APRN, C.N.P., D.N.P. [address] [place] [address] documented as of this encounter Visit Diagnoses Not on filedocumented in this encounter Additional Health Concerns Infection Onset Date Last Indicated Resolved Time COVID19 Pending 06/30/2020 06/30/2020 07/01/2020 2 :04 PM CDT COVID19 Pending 07/19/2021 07/19/2021 07/20/2021 1 :33 PM CDT COVID19 Pending 08/06/2021 08/06/2021 08/07/2021 3 :06 PM CDT COVID19 12/03/2022 12/03/2022 12/23/2022 5:17 AM MOBILE DISC JOCKEY COVID19 Pending 02/13/2023 02/13/2023 02/13/2023 1 :57 PM CDT documented as of this encounter Care Teams Editorial Clerk Relationship Specialty Start Date End Date Karla Resendiz APRN, C.N.P., D.N.P. [address] [place] [address] PCP - General 05/19/17 documented as of this encounter
--- OUTSIDE RECORDS SUMMARY | 2024-06-18 16:59 | XMS_ITS | Encounter Summary ---
Author Organization [facility] Address [address] [place] [address] Care Team Providers Care Armored Car Guard And Driver Name Role Phone Karla Resendiz APRN, C.N.P., D.N.P. Primary Care Provider Encounter Details Date Type Department Care Team (Late st Contact Info) Description 02/25/2010 Historical Ophthalmology [facility] Marivel Gray M.D. [address] [place] [address] Social History Tobacco Use Types Packs/Day Years Used Date Smoking Tobacco: Never Assessed Sex and Gender Information Value Date Recorded Sex Assigned at Female 07/17/2018 3:01 PM CDT Gender Identity Female 07/17/2018 3:01 PM CDT Sexual Orientation Straight 07/17/2018 3: 01 PM CDT documented as of this encounter Progress Notes * Marivel Gray M.D. - 02/25/2010 2:14 PM CDT Eye General CHIEF COMPLAINT Decreasing clarity at distance in certain lighting scenarios; flashes (both eyes) x many years; intermittent HISTORY OF PRESENT ILLNESS Light flashes alone; patient uncertain which eye(s) involved; x many years; intermittently. Intermittenrt eye ache as if eyes are swollen ; noted when she is tired. Vision may appear duller in dim lighting; current over the counter readers may be getting a little weak. Denies irritation, tearing or floaters (both eyes). IMPRESSION / REPORT / PLAN #1 Proptosis, left eye, mild, stable observe #2 Hypoglobus, left eye, mild, stable observe CT orbits 04/2008 reviewed: mild enlargement of left lateral rectus muscle.- similar to MRI of 2006 Slight enlargement of left lacrimal gland but nothing incredibly obvious. Plan: observe. repeat scan if changes noted #3 Cataract, both eyes. still functioning well Plan: observe. #4 Dry eye symptoms Use artificial tears prn recheck 1 year DIAGNOSIS #1 Proptosis, left eye, mild, stable #2 Hypoglobus, left eye, mild, stable #3 Cataract, both eyes. #4 Dry eye symptoms CDM Reports - EYEGEN Id: [id number] Status: Fnl documented in this encounter Plan of Treatment Upcoming Encounters Date Type Department Care Team (Late st Contact Info) Description 09/06/2024 8:30 AM CDT Office Visit Department of Family Medicine, [facility], in [address] [address] Karla Resendiz APRN, C.N.P., D.N.P. [address] [place] [phone] documented as of this encounter Visit Diagnoses Not on filedocumented in this encounter Additional Health Concerns Infection Onset Date Last Indicated Resolved Time COVID19 Pending 06/30/2020 06/30/2020 07/01/2020 2 :04 PM CDT COVID19 Pending 07/19/2021 07/19/2021 07/20/2021 1 :33 PM CDT COVID19 Pending 08/06/2021 08/06/2021 08/07/2021 3 :06 PM CDT COVID19 12/03/2022 12/03/2022 12/23/2022 5:17 AM SUPERVISOR WINDING DEPARTMENT COVID19 Pending 02/13/2023 02/13/2023 02/13/2023 1 :57 PM CDT documented as of this encounter Care Teams Armored Car Guard And Driver Relationship Specialty Start Date End Date Karla Resendiz APRN, C.N.P., D.N.P. [address] [place] [address] PCP - General 05/19/17 documented as of this encounter
--- OUTSIDE RECORDS SUMMARY | 2024-06-18 17:00 | XMS_ITS | Referral Summary ---
Author Organization [facility] Address [address] [place] [address] Care Team Providers Care Subway Train Driver Name Role Phone Karla Resendiz DOMINICK Primary Care Provider +1 -[phone] Allergies Active Allergy Reactions Criticality Noted Date Comments Adhesive Tape Rash Low 07/16/2020 Tramadol Dizziness,Nausea and Vomiting 2019 Medications Medication Sig Dispensed Refills Start Date End Date Status predniSONE (DELTASONE) 5 MG tablet Take 5 mg by mouth daily Active levothyroxine (SYNTHROID/LEVOTHROID ) 100 MCG tablet Take 100 mcg by mouth daily Active magnesium oxide 200 MG TABS 2 tabs Active predniSONE (DELTASONE) 10 MG tablet Take 10 mg by mouth as needed As needed for flares Active oxyCODONE (OXY-IR) 5 MG capsule Take 5 mg by mouth every 6 hours as needed for severe pain Active Multiple Vitamins-Minerals (MVW COMPLETE FORMULATION MINIS PO) Act george omega 3 1000 MG CAPS 2 capsules Acti ve fluticasone (FLONASE) 50 MCG/ACT nasal spray [place] 1 spray into both nostrils daily Active B COMPLEX VITAMINS ER PO Active calcium carbonate 500 mg, elemental, (OSCAL 500) 1250 (500 Ca) MG TABS tablet Take by mouth daily Active lactobacillus rhamnosus, GG, (CULTURELL) capsule Take 1 capsule by mouth daily Active vitamin C (ASCORBIC ACID) 1000 MG TABS Take 1,000 mg by mouth daily Active docusate sodium (COLACE) 100 MG capsule Take 100 mg by mouth daily Active Vitamin A 3 MG (98456 UT) TABS Take 1 tablet by mouth daily Active senna-docusate (SENOKOT-S/PERICOLACE ) 8.6-50 MG tabletIndications:Mac romastia,Status post bilateral breast reduction Take 1-2 tablets by mouth 2 times daily 30 tablet 07/16/2020 Active oxyCODONE-acetaminoph en (PERCOCET) 5-325 MG tabletIndications:Mac romastia,Status post bilateral breast reduction Take 1-2 tablets by mouth every 4 hours as needed for moderate to severe pain 30 tablet 07/16/2020 Active ondansetron (ZOFRAN-ODT) 4 MG ODT tabIndications:Macrom astia,Status post bilateral breast reduction Take 1 tablet (4 mg) by mouth every 8 hours as needed for nausea 20 tablet 07/16/2020 Active Active Problems Problem Noted Date Diagnosed Date CARDIOVASCULAR SCREENING; LDL GOAL LESS THAN 160 12/30/2009 Polymyositis 08/09/2006 Abnormal levels of other serum enzymes 6 Overview: UNCLEAR ETIOLOGY Diagnosis updated by automated process. Provider to review and confirm. Incontinence of feces 07/23/2006 Overview: Problem list name updated by automated process. Provider to review and confirm Imo Update utility Urge incontinence 07/23/2006 Hypothyroidism Overview: Problem list name updated by automated process. Provider to review Rheumatoid arthritis Overview: Problem list name updated by automated process. Provider to review BREAST PAIN Anxiety state Overview: Problem list name updated by automated process. Provider to review Immunizations Name Administration Dates Next Due COVID-19 MONOVALENT 12+ (Pfizer) 02/27/2021,01/19 [place] Tuberculin Skin Test 07/31/2006 Social History Tobacco Use Types Packs/Day Years Used Date Smoking Tobacco: Never Smokeless Tobacco: Never Alcohol Use Standard Drinks/Week Comments Yes 0 (1 standard drink = 0.6 oz pur e alcohol) 1 drink a week Adolescent Education Answer Date Record ed Getting School Help Needed Not on file 08/26 Sex and Gender Information Value Date Recorded Sex Assigned at Not on file Gender Identity Not on file Sexual Orientation Straight 01/31/2021 12 :29 PM CDT Last Filed Vital Signs Vital Sign Reading Time Taken Comments Blood Pressure 104/62 07/16/2020 3:10 PM CDT Pulse 77 07/16/2020 1:15 PM CDT Temperature 36.5 ??C (97.7 ??F) 07/16/2020 1:15 PM CD T Respiratory Rate 16 07/16/2020 3:10 PM CDT Oxygen Saturation 96% 07/16/2020 3:10 PM CDT Inhaled Oxygen Concentration - - Weight 64.4 kg (142 lb) 07/16/2020 6:00 AM CDT Height 170.2 cm (5' 7) 07/16/2020 6:00 AM CDT Body Mass Index 22.24 07/16/2020 6:00 AM CDT Plan of Treatment Not on file Procedures Procedure Name Priority Date/Time Associated Diagnosis Comments GYNECOLOGIC CYTOLOGY Routine 12/12/2023 10:28 AM LIGHTNING PROTECTION INSTALLER Encounter for screening for malignant neoplasm of cervix BASIC METABOLIC PANEL STAT 08/04/2006 1:36 PM CDT HCL TSH W/FREE T4 REFLEX Routine 07/20/2006 12:26 PM CDT Hypothyroidism Nos HCL HEPATITIS C VIRUS ANTIBODY Routine 07/17/2006 2:09 PM CDT Abn Serum Enzy Level Nec C MAMMOGRAM, SCREENING Routine 07/25/2002 DIAGNOSIS NOT YET DEFINED from Last 3 Months or Most Recently Relevant to Health Maintenance Results * (ABNORMAL) Gynecologic Cytology (PAP) (12/12/2023 10:28 AM LIGHTNING PROTECTION INSTALLER) Interpretation Atypical squamous cells of undetermined significance (ASC-US)(A) 12/15/2023 3:48 PM LIGHTNING PROTECTION INSTALLER [facility] Comment Papanicolaou Test Limitations: Cervical cytology is a screening test with limited sensitivity, and regular screening is critical for cancer prevention. Pap tests are primarily effective for the diagnosis/preven tion of squamous cell carcinoma, not adenocarcinoma or other cancers. 12/15/2023 3:48 PM LIGHTNING PROTECTION INSTALLER [facility] Specimen Adequacy Satisfactory for evaluation, endocerv/transfo rmation zone component absent, atrophy 12/15/2023 3:48 PM LIGHTNING PROTECTION INSTALLER [facility] Clinical Information post-menopausal 12/15/2023 3:48 PM LIGHTNING PROTECTION INSTALLER [facility] LMP/Menopause Date postmeno 12/15/2023 3:48 PM LIGHTNING PROTECTION INSTALLER [facility] Reflex Testing Yes regardless of result 12/15/2023 3:48 PM LIGHTNING PROTECTION INSTALLER [facility] Previous Abnormal? No 12/15/2023 3:48 PM LIGHTNING PROTECTION INSTALLER [facility] Previous Abnormal Diagnosis NL 12/15/2023 3:48 PM LIGHTNING PROTECTION INSTALLER [facility] Performing Labs The technical component of this testing was completed at [facility] 12/15/2023 3:48 PM LIGHTNING PROTECTION INSTALLER [facility] Brushing CERVIX UTERI STRUCTURE / Unknown 12/12/2023 10:28 AM LIGHTNING PROTECTION INSTALLER 12/12/2023 2:01 PM LIGHTNING PROTECTION INSTALLER Zarina BRANCH - NIKKI MIN [facility] [address] Lab (1st floor, no room number) [place] [address], [facility] [phone] [facility] [address] [facility], [address] [place] [address], [facility] [phone] * (ABNORMAL) Basic metabolic panel (08/04/2006 1:36 PM CDT) Sodium 138 133 - 144 mmol/L [facility] Potassium 4.2 3.4 - 5.3 mmol/L [facility] Chloride 104 94 - 109 mmol/L [facility] Carbon Dioxide 30 20 - 32 mmol/L [facility] Glucose 116(H) 60 - 110 mg/dL [facility] Urea Nitrogen 7 5 - 24 mg/dL [facility] Creatinine 0.49(L) 0.60 - 1.30 mg/dL [facility] GFR Estimate >90 >60 mL/min/1.7 m2 [facility] GFR Estimate If Black >90 >60 mL/min/1.7 m2 [facility] Calcium 7.7(L) 8.5 - 10.4 mg/dL [facility] Anion Gap 4(L) 6 - 17 mmol/L [facility] 08/04/2006 1:36 PM CDT 08/04/2006 1:11 PM CDT Peter Lu MD LAB - BLOOD ORDERABL ES Performing Organization Address [facility] Co de Phone Number [facility] * (ABNORMAL) TSH W/FREE T4 REFLEX (07/20/2006 12:26 PM CDT) TSH 6.17(H) 0.4 - 5.0 mU/L [facility] 07/20/2006 12:2 6 PM CDT 07/20/2006 12:27 PM CDT Nasrin Figueroa MD LABORATORY Performing Organization Address [facility] de Phone Number [facility] * HEPATITIS C AB (07/17/2006 2:09 PM CDT) Hepatitis C Antibody Negative NEG [facility] 07/17/2006 2:09 PM CDT 07/17/2006 2:12 PM CDT Nasrin Figueroa MD LABORATORY Performing Organization Address [facility] Co de Phone Number [facility] * MAMMOGRAM, SCREENING (07/25/2002) Anatomical Region Laterality Modality Other 07/25/2002 Nasrin Figueroa MD SPECIAL IMAGING STUDIES from Last 3 Months or Most Recently Relevant to Health Maintenance Care Teams Subway Train Driver Relationship Specialty Start Date End Date Karla Resendiz, AUTOMATIC BLOCKER PCP - General Nurse Practitioner 06/30/20
--- OUTSIDE RECORDS SUMMARY | 2024-06-18 17:00 | XMS_ITS | Encounter Summary ---
Author Organization [facility] Address [address] [place] [address] Care Team Providers Care Recreation Specialist Name Role Phone Karla Resendiz CNP Primary Care Provider [phone] Encounter Details Date Type Department Care Team (Late st Contact Info) Description 02/28/2021 Documentation Only INTERFACED REPORT Unknown, Provider Social History Tobacco Use Types Packs/Day Years Used Date Smoking Tobacco: Never Smokeless Tobacco: Never Alcohol Use Standard Drinks/Week Comments Yes 0 (1 standard drink = 0.6 oz pur e alcohol) 1 drink a week Sex and Gender Information Value Date Recorded Sex Assigned at Not on file Gender Identity Not on file Sexual Orientation Straight 01/31/2021 12 :29 PM CDT documented as of this encounter Plan of Treatment Not on file documented as of this encounter Visit Diagnoses Not on filedocumented in this encounter Care Teams Recreation Specialist Relationship Specialty Start Date End Date Karla Resendiz CNP PCP - General Nurse Practitioner 06/30/20 documented as of this encounter
--- OUTSIDE RECORDS SUMMARY | 2024-06-18 17:00 | XMS_ITS | Clinical Summary ---
Author Organization [facility] Address [address] [place] [address] Care Team Providers Care Loss Prevention Guard Name Role Phone Karla Resendiz DOMINICK Primary Care Provider [phone] Allergies Active Allergy Reactions Criticality Noted Date [...] ve fluticasone (FLONASE) 50 MCG/ACT nasal spray [place] 1 spray into both nostrils daily Active [...] mouth daily Active Vitamin A 3 MG (66047 UT) TABS Take 1 tablet by mouth [...] (Pfizer) 02/27/2021,01/19 [place] Tuberculin Skin Test 07/31/2006 Family History Medical History Relation Comments Genetic Disorder Daughter 3 Autistic Genitourinary Problems Father kidney st ones, father and brothers Cancer Maternal Uncle prostate, kidney , lung and skin Blood Disease Mother pos Factor V lei den Cancer Other Ewings sarcoma, diagnosed age 13, cousin's daughter Thyroid Disease Sister 4 Graves and Hoshi nevahe Musculoskeletal Disorder Sister 5 polymyo sitis rheumatica Blood Disease Sister 6 3 sisters pos Fa ctor V Leiden Relation Status Comments Brother Alive Daughter 1 Alive Daughter 2 Alive Daughter 3 Father Alive Maternal Uncle Mother Alive Other Sister 1 Alive Sister 2 Alive Sister 3 Alive Sister 4 Sister 5 Sister 6 Social History Tobacco Use Types Packs/Day Years [...] 07/16/2020 6:00 AM CDT Plan of Treatment Health Maintenance Due Date Last Done Comments ADVANCE CARE PLANNING 1965 ANNUAL REVIEW OF HM ORDERS 1965 CT COLONOGRAPHY 1965 FIT 1965 FLEX SIG 1965 sDNA (Cologuard) 1965 COLONOSCOPY 1975 COLORECTAL CANCER SCREENING 1975 HIV SCREENING 02/12/1980 HEPATITIS B IMMUNIZATION (1 of 3 - 19+ 3-dose series) 02/12/1984 DTAP/TDAP/TD IMMUNIZATION (1 - Tdap) 1990 LIPID 2005 TSH W/FREE T4 REFLEX 07/20/2007 07/20/2006 GLUCOSE 08/04/2009 08/04/2006, 07/28/2006 ZOSTER IMMUNIZATION (1 of 2) 2015 MAMMO SCREENING 01/13/2022 01/13/2020, 09/20, 07/25/2002 COVID-19 Vaccine (3 - 2023-24 season) 2023 02/27/2021, 02/06/2021 PHQ-2 (once per calendar year) 2023 INFLUENZA VACCINE (#1) 2024 0, 07/29/2019, 09/10/2018, Additional history exists PAP 12/12/2026 12/12/2023, 03/21, 12/21/1999 HEPATITIS C SCREENING Completed 07/17/2006 Pneumococcal Vaccine: Pediatrics (0 to 5 Years) and At-Risk Patients (6 to 64 Years) Aged Out 08/21/2019 No longer eligible based on patient's age to complete this topic HPV IMMUNIZATION Aged Out No longer e ligible based on patient's age to complete this topic IPV IMMUNIZATION Aged Out No longer e ligible based on patient's age to complete this topic MENINGITIS IMMUNIZATION Aged Out No l onger eligible based on patient's age to complete this topic RSV MONOCLONAL ANTIBODY Aged Out No l onger eligible based on patient's age to complete this topic Procedures Procedure Name Priority Date/Time Associated Diagnosis Comments GYNECOLOGIC CYTOLOGY Routine 12/12/2023 10:28 AM TREASURY ASSOCIATE Encounter for screening for malignant neoplasm of [...] (ABNORMAL) Gynecologic Cytology (PAP) (12/12/2023 10:28 AM TREASURY ASSOCIATE) Interpretation Atypical squamous cells of undetermined significance (ASC-US)(A) 12/15/2023 3:48 PM TREASURY ASSOCIATE [facility] Comment Papanicolaou Test Limitations: Cervical cytology is a screening test with limited sensitivity, and regular screening is critical for cancer prevention. Pap tests are primarily effective for the diagnosis/preven tion of squamous cell carcinoma, not adenocarcinoma or other cancers. 12/15/2023 3:48 PM TREASURY ASSOCIATE LABORAT[facility] Specimen Adequacy Satisfactory for evaluation, endocerv/transfo rmation zone component absent, atrophy 12/15/2023 3:48 PM TREASURY ASSOCIATE [facility] Clinical Information post-menopausal 12/15/2023 3:48 PM TREASURY ASSOCIATE [facility] LMP/Menopause Date postmeno 12/15/2023 3:48 PM TREASURY ASSOCIATE [facility] Reflex Testing Yes regardless of result 12/15/2023 3:48 PM TREASURY ASSOCIATE [facility] Previous Abnormal? No 12/15/2023 3:48 PM TREASURY ASSOCIATE [facility] Previous Abnormal Diagnosis NL 12/15/2023 3:48 PM TREASURY ASSOCIATE [facility] Performing Labs The technical component of this testing was completed at [facility] 12/15/2023 3:48 PM TREASURY ASSOCIATE [facility] Brushing CERVIX UTERI STRUCTURE / Unknown 12/12/2023 10:28 AM TREASURY ASSOCIATE 12/12/2023 2:01 PM TREASURY ASSOCIATE Zarina Brown MD LAB - [facility] [address] [facility] (1st floor, no room number) [place] [address], [facility] [phone] SPECIALTY LAB[facility] Specialty Lab [address] [facility], Room [address] [address], [facility] [phone] * (ABNORMAL) Basic metabolic panel (08/04/2006 1:36 [...] - BLOOD ORDERABL ES Performing Organization Address [facility] de Phone Number MISYS * (ABNORMAL) TSH W/FREE T4 REFLEX (07/20/2006 12:26 PM CDT) TSH 6.17(H) 0.4 - 5.0 mU/L [facility] 07/20/2006 12:2 6 PM CDT 07/20/2006 12:27 PM CDT Nasrin Figueroa MD LABORATORY Performing Organization Address [facility] de Phone Number [facility] * HEPATITIS C AB (07/17/2006 2:09 PM CDT) Hepatitis C Antibody Negative NEG [facility] 07/17/2006 2:09 PM CDT 07/17/2006 2:12 PM CDT Nasrin Figueroa MD LABORATORY Performing Organization Address [facility] de Phone Number [facility] * MAMMOGRAM, SCREENING (07/25/2002) Anatomical Region Laterality Modality Other 07/25/2002 Nasrin Figueroa MD SPECIAL IMAGING STUDIES from Last 3 Months or Most Recently Relevant to Health Maintenance Care Teams Loss Prevention Guard Relationship Specialty Start Date End Date Karla Resendiz, CLIENT EXPERIENCE CONSULTANT PCP - General Nurse Practitioner 06/30/20
--- OUTSIDE RECORDS SUMMARY | 2024-06-18 17:00 | XMS_ITS | Encounter Summary ---
Author Organization [facility] Address [address] [place] [address] Care Team Providers Care Decorative Greens Cutter Name Role Phone Karla Resendiz CNP Primary Care Provider [phone] Encounter Details Date Type Department Care Team (Late st Contact Info) Description 02/07/2021 Documentation Only INTERFACED REPORT Unknown, Provider Social [...] on filedocumented in this encounter Care Teams Decorative Greens Cutter Relationship Specialty Start Date End Date Karla Resendiz CNP PCP - General Nurse Practitioner 06/30/20 documented as of this encounter
--- OUTSIDE RECORDS SUMMARY | 2024-06-18 17:00 | XMS_ITS | Encounter Summary ---
Author Organization [facility] Address [address] [place] [address]. [place] [address] Care Team Providers Care Blocker Automatic Name Role Phone Nasrin Figueroa MD Primary Care Provider Nasrin Figueroa MD Unavailable [phone] Nasrin Figueroa MD Unavailable [phone] Karla Resendiz CNP Primary Care Provider [phone] Encounter Details Date Type Department Care Team (Late st Contact Info) Description 08/10/2006 [facility] Medical Advice [address] [address] Nasrin Figueroa MD [address] [place] [address] Social History Tobacco Use Types Packs/Day Years Used Date Smoking Tobacco: Never Alcohol Use Standard Drinks/Week Comments Yes 0 (1 standard drink = 0.6 oz pur e alcohol) rarely Sex and Gender Information Value Date Recorded Sex Assigned at Not on file Gender Identity Not on file Sexual Orientation Straight 01/31/2021 12 :29 PM CDT documented as of this encounter Plan of Treatment Not on file documented as of this encounter Visit Diagnoses Not on filedocumented in this encounter Care Teams Blocker Automatic Relationship Specialty Start Date End Date Nasrin Figueroa MD PCP - General 10/25/05 06/29/20 Nasrin Figueroa MD PCP - Obstetrics/Gynecology 10/25/05 06/29/20 Nasrin Figueroa MD PCP - Internal Medicine 10/25/05 Karla Resendiz, BUSHING AND BROACH OPERATOR PCP - General Nurse Practitioner 06/30/20 documented as of this encounter
--- OUTSIDE RECORDS SUMMARY | 2024-06-18 17:01 | XMS_ITS | Encounter Summary ---
Author Organization [facility] Address [address] [place] [address] Care Team Providers Care Clerical Car Checker Name Role Phone Nasrin Figueroa MD Primary Care Provider Kamini Stinson MD Primary Care Provider [phone] Nasrin Figueroa MD Unavailable [phone] Nasrin Figueroa MD Unavailable [phone] Karla Resendiz CNP Primary Care Provider [phone] Encounter Details Date Type Department Care Team (Late st Contact Info) Description 10/11/2005 [facility] [place] Inpatient Dept [address] [place] [id number] Fr[place], Inpatient Provider HISTORY AND PHYSICAL DONE IN [place] Social History Tobacco Use Types Packs/Day Years [...] as of this encounter Progress Notes * James Cason - 10/11/2005 8:15 AM CSTPROCEDURE/OPERATIVE REPORT Date of Procedure: 10/11/05 PREOPERATIVE DIAGNOSIS: 1. Stress urinary incontinence. 2. Uterine prolapse. 3. Uterine leiomyomata. 4. Cystocele. 5. Rectocele. 6. History of left ovarian cyst. POSTOPERATIVE DIAGNOSIS: 1. Stress urinary incontinence. 2. Uterine prolapse. 3. Uterine leiomyomata. 4. Cystocele. 5. Rectocele. 6. History of left ovarian cyst. 7. Normal ovaries. PROCEDURE:TOTAL VAGINAL HYSTERECTOMY, ANTERIOR VAGINAL REPAIR, TENSION FREE VAGINAL TAPE, POSTERIOR VAGINAL REPAIR Surgeons: Dr. Cason. Engine Lathe Operator: Dr. Ruvalcaba. Anesthesia: Spinal. Estimated blood loss: 50 milliliters. Complications: None. Josefina Esparza has had increasing symptoms of uterine prolapse and stress urinary incontinence. She has loss of urine with Valsalva which has become more consistent and she is having to wear pads. She has noticed a prolapse through the introitus which is the cystocele. The cervix is misshapen due to its position presenting just inside the introitus. Josefina is taken to surgery with an intravenous in place. Spinal anesthesia is easily administered and she is fully monitored. She is placed in lithotomy position and vagina, perineum, and low abdomen are prepped and draped in a normal sterile manner. The pedicles are taken with LigaSure. The cul-de-sac is entered with LigaSure and sharp dissection. The mucosa around the cervix is taken with LigaSure and the bladder is then taken off the cervix and lower uterine segment sharply and bluntly and the peritoneum is sharply entered. Pedicles of the remaining cervix, uterosacral ligaments, lower uterine segment, anterior broad ligament, uterine vessels which were numerous and large, round ligament, fallopian tube, posterior broad ligament, and uterine ovarian pedicle were all taken. The uterus and cervix were sent to pathology. The ovaries were inspected and found to be normal with no abnormality in terms of cysts, shape or size. The fallopian tubes were normal. The peritoneum was closed with 0 Vicryl running purse string suture incorporating the uterosacral ligaments to the posterior vaginal cuff. The vaginal cuff is closed from [id number] closing the posterior two-thirds. The anterior vaginal wall was then opened from the mid point of the anterior cuff to within 2 centimeters of the urethral meatus. The fascia was taken off the mucosa sharply and bluntly and the fascia pulled to the midline with 2-0 Vicryl interrupted box sutures repairing the cystocele. The TVT (tension-free vaginal tape) was placed by placing a Cisneros catheter in the bladder, draining the bladder, and placing a stylette in the Cisneros so that the bladder is pushed to the contralateral side of the placement of each TVT needle. Each TVT needle is placed towards the ipsilateral shoulder and brought out through a stab wound in the abdominal wall just above the symphysis and approximately 2 centimeters lateral to the midline on each side. The TVT is then pulled to within one fingerbreadth of the urethra and the sheath removed. The bladder has been inspected with cystoscopy after the placement of the needles and there is no bladder abnormality or evidence of injury. The Cisneros catheter has been placed back in the bladder and the bladder emptied and the TVT pulled to its proper position. The excess TVT is trimmed at the skin level and the exit sites in the abdominal wall are closed with Dermabond surgical glue. The anterior vaginal wall mucosa is trimmed. Anterior vaginal wall and anterior cuff are closed with 0 Vicryl running locking suture and the anterior wall and vaginal cuff are dry. The posterior vaginal wall is opened from the posterior fourchette to within 2 centimeters of the vaginal cuff. The mucosa is taken off the fascia sharply and bluntly. The fascia is pulled to the midline with 2-0 Vicryl interrupted box sutures repairing the rectocele. The mucosa is trimmed and the vaginal wall closed with 0 Vicryl running locking suture in the manner of closing an episiotomy. The vaginal maldonado and vaginal cuff are dry. Urine is clear. The patient tolerates the procedure well and is taken to the recovery room in good condition. All sponge needle counts are correct. Eric Nicolas/abelardo cc: SIFIER OPERATOR documented in this encounter Plan of Treatment Not on file documented as of this encounter Visit Diagnoses Not on filedocumented in this encounter Care Teams Clerical Car Checker Relationship Specialty Start Date End Date Nasrin Figueroa MD PCP - General 10/25/05 06/29/20 Kamini Stinson MD [facility] [place] [address] [place] [address] PCP - General 12/13/00 10/24/05 Nasrin Figueroa MD PCP - Obstetrics/Gynecology 10/25/05 06/29/20 Nasrin Figueroa MD PCP - Internal Medicine 10/25/05 Karla Resendiz, MOTOR EQUIPMENT COMMANDING OFFICER [facility] [place] [address] [place] [address] PCP - General Nurse Practitioner 06/30/20 documented as of this encounter
--- OUTSIDE RECORDS SUMMARY | 2024-06-18 17:01 | XMS_ITS | Encounter Summary ---
Author Organization [facility] Address [address] [place] [address]. [place] [address] Care Team Providers Care Disability Attorney Name Role Phone Nasrin Figueroa MD Primary Care Provider Kamini Stinson MD Primary Care Provider [phone] Nasrin Figueroa MD Unavailable [phone] Nasrin Figueroa MD Unavailable [phone] Karla Resendiz CNP Primary Care Provider [phone] Encounter Details Date Type Department Care Team (Late st Contact Info) Description 03/01/[address] [address] Nasrin Figueroa MD [address] [place] [address] [facility] Social History Tobacco Use Types Packs/Day Years [...] on file documented as of this encounter Procedures Procedure Name Priority Date/Time Associated Diagnosis Comments HCL ALT Routine 07/10/2006 [facility] HCL AST Routine 07/10/2006 [facility] documented in this encounter Results * AST (07/10/2006) AST 132 U/L 07/10/2006 Nasrin Figueroa MD LABORATORY * ALANINE AMINO (ALT) (SGPT) (07/10/2006) ALT 164 U/L 07/10/2006 Nasrin Figueroa MD LABORATORY documented in this encounter Visit Diagnoses Diagnosis [facility]- Primary documented in this encounter Care Teams Disability Attorney Relationship Specialty Start Date End Date Nasrin Figueroa MD PCP - General 10/25/05 06/29/20 Kamini Stinson MD [facility] [place] [address] [place] [address] PCP - General 12/13/00 10/24/05 Nasrin Figueroa MD PCP - Obstetrics/Gynecology 10/25/05 06/29/20 Nasrin Figueroa MD PCP - Internal Medicine 10/25/05 Karla Resendiz, SPEECH AND HEARING DIRECTOR [facility] [place] [address] [place] [address] PCP - General Nurse Practitioner 06/30/20 documented as of this encounter
--- OUTSIDE RECORDS SUMMARY | 2024-06-18 17:01 | XMS_ITS | Encounter Summary ---
Author Organization [facility] Address [address] [place] [address] Care Team Providers Care Thread Trimmer Name Role Phone Nasrin Figueroa MD Primary Care Provider Kamini Stinson MD Primary Care Provider [phone] Nasrin Figueroa MD Unavailable [phone] Nasrin Figueroa MD Unavailable [phone] Karla Resendiz CNP Primary Care Provider [phone] Encounter Details Date Type Department Care Team (Late st Contact Info) Description 10/12/2005 [facility] [place] EXTRACT OPERATOR [address] [place] [id number] James Cason MD Social History Tobacco Use Types Packs/Day Years [...] on filedocumented in this encounter Care Teams Thread Trimmer Relationship Specialty Start Date End Date Nasrin Figueroa MD PCP - General 10/25/05 06/29/20 Kamini Stinson MD [facility] [place] [address] [place] [address] PCP - General 12/13/00 10/24/05 Nasrin Figueroa MD PCP - Obstetrics/Gynecology 10/25/05 06/29/20 Nasrin Figueroa MD PCP - Internal Medicine 10/25/05 Karla Resendiz, DATA INTEGRATION DEVELOPER [facility] [place] [address] [place] [address] PCP - General Nurse Practitioner 06/30/20 documented as of this encounter
--- OUTSIDE RECORDS SUMMARY | 2024-06-18 17:01 | XMS_ITS | Encounter Summary ---
Author Organization [facility] Address [address] [place] [address]. [place] [address] Care Team Providers Care Steel Rule Inspector Name Role Phone Nasrin Figueroa MD Primary Care Provider Kamini Stinson MD Primary Care Provider [phone] Nasrin Figueroa MD Unavailable [phone] Nasrin Figueroa MD Unavailable [phone] Karla Resendiz CNP Primary Care Provider [phone] Encounter Details Date Type Department Care Team (Late st Contact Info) Description 08/03/[address] [address] Nasrin Figueroa MD [address] [place] [address] [facility] Social History Tobacco Use Types Packs/Day Years [...] as of this encounter Visit Diagnoses Diagnosis [facility]- Primary documented in this encounter Care Teams Steel Rule Inspector Relationship Specialty Start Date End Date Nasrin Figueroa MD PCP - General 10/25/05 06/29/20 Kamini Stinson MD [facility] [place] [address] [facility] [address] [place] [address] PCP - General 12/13/00 10/24/05 Nasrin Figueroa MD PCP - Obstetrics/Gynecology 10/25/05 06/29/20 Nasrin Figueroa MD PCP - Internal Medicine 10/25/05 Karla Resendiz, DATABASE MARKETING SPECIALIST [facility] [place] [address] [facility] [address] [place] [address] PCP - General Nurse Practitioner 06/30/20 documented as of this encounter
== END 2024-06-18 16:51 | disposition home or self-care (01) ==
LOC: NFLDUCREF 16:51
PROVIDERS: Visit Provider Family Medicine
DX: R35.0 Frequency of micturition (principal)
CPT/HCPCS: 87086